=== PATIENT | female | born 1975 | race Caucasian/White ===

== ENCOUNTER 2016-05-20 11:48 | Emergency (ER) | payer MEDICARE ==
[~2016-05-20] VITALS: Ht 176.5 cm; Wt 128.4 kg
[~2016-05-20 11:48] MED LIST: ACET500T68 PO; ALPR1TAB2 PO; AMIT100T PO; ASPI325T4 PO; ATOR40TA59 PO; BARIATRIC ADVANTAGE; BIOT25005 PO; CEPH500C PO; CETI10CA PO; CETI10TA16 PO; CYCL10TA2 PO; DIPH25CA58 PO; DIPH25TA26 PO; DOCU100C5 PO; ERTA1VIA IJ; FERR-26 PO; FURO-69 PO; FURO40TA4 PO; GABA-586 PO; HYDR1TAB20 PO; HYDR25TA PO; LACT1CAP29 PO; LANS15CA66 PO; LEVO75TA5 PO; METH20TA PO; MONT10TA6 PO; NAPR500T3 PO; OLAN1CAP15 PO; OLAN1CAP17 PO; OXYC5TAB PO; OXYM20TA PO; OXYM30TA PO; PHEN-373 PO; POTA20TA4 PO; PROAIR HFA8.5 GM INH; PROC5TAB14 PO; RISP2TAB3 PO; SODI126M NS; SPIR25TA3 PO; SULF1TAB24 PO; TIZA4TAB PO; flexeril; naproxen PO; slow fe PO; stool softener PO
[2016-05-20 12:00] VITALS: BP 142/68
[2016-05-20] MEDS ORDERED: CEPH-264 PO (12:42)
--- NOTE | 2016-05-20 12:43 | PHYS DOC ---
Past Medical History Past Medical History: Arthritis, CHF, Fibromyalgia, GERD, High Cholesterol, Other Additional Past Medical Histor: TACHYCARDIA, E COLI, HYDRONEPHROSIS, cellulitis , INTERSTITIAL CYSTITIS Past Surgical History: Other Additional Past Surgical Histo: LAP BAND 2004, OK EN Y 2013, BREAST REDUCT, R TOE ORTHO Alcohol Use: None Drug Use: None Adult General Chief Complaint Chief Complaint: LOWER EXTREMITY SWELLING HPI HPI 41-year-old female presenting to the emergency department today with bilateral lower extremity swelling or and streaking. Onset 4 days. Location both legs bilaterally. Duration intermittent. No alleviating factors present. She denies shortness of breath or chest pain. Review of systems is negative for nausea vomiting fevers or chills. All other review of systems is negative unless otherwise noted in history of present illness. Review of Systems Review of Systems SEE ABOVE. Allergies Allergies Allergies Coded Allergies Type Severity Reaction Last Updated Verified adhesive tape Allergy Intermediate SKIN SENSITIVITY 05/20/16 Yes erythromycin base Allergy Intermediate 05/20/16 Yes jannie Allergy Intermediate Rash 05/20/16 Yes tetracycline Allergy Intermediate 05/20/16 Yes walnut Allergy Intermediate 05/20/16 Yes Physical Exam Physical Exam Constitutional: Well developed, well nourished, no acute distress, non-toxic appearance. HENT: Normocephalic, atraumatic, bilateral external ears normal, oropharynx moist, no oral exudates, nose normal. [] Eyes: PERRLA, EOMI, conjunctiva normal, no discharge. [] Neck: Normal range of motion, no tenderness, supple, no stridor. Cardiovascular:Heart rate regular rhythm, no murmur [] Lungs & Thorax: Bilateral breath sounds clear to auscultation Abdomen: Bowel sounds normal, soft, no tenderness, no masses, no pulsatile masses. [] Skin: Warm, dry, no erythema, no rash. [] Back: No tenderness, no CVA tenderness. Extremities: Patient has 1+ edema bilaterally with palpable pulses distally. Normal motor and sensory function. 2 second cap refill. They feet are warm to touch bilaterally with mild erythema. No crepitus to palpation. Neurologic: Alert and oriented X 3, normal motor function, normal sensory function, no focal deficits noted. [] Psychologic: Affect normal, judgement normal, mood normal. [] Current Patient Data Vital Signs Vital Signs Date Time Temp Pulse Resp B/P Pulse Ox O2 Delivery O2 Flow Rate FiO2 05/20/16 12:00 98.5 107 18 142/68 92 Room Air 98.5 EKG EKG [] Radiology/Procedures Radiology/Procedures [] Course & Med Decision Making Course & Med Decision Making Pertinent Labs and Imaging studies reviewed. (See chart for details) [] 41-year-old female presenting to the emergency department with bilateral leg swelling pain redness and warmth to touch. Signs and symptoms suggestive of cellulitis. Vital signs showed mild tachycardia that is chronic for this patient. Otherwise afebrile. Pertinent physical exam findings showed mild edema with erythema and swelling of the lower extremities. Upon further review of the electronic medical record the patient's pulmonary artery pressures were noted to be in the 40s. The patient is obese and likely suffering from obstructive sleep apnea. I recommended the patient follow up with her primary care physician for sleep study as well. The patient was subsequently discharged home with oral Keflex for treatment of acute cellulitis. Dragon Disclaimer Dragon Disclaimer This electronic medical record was generated, in whole or in part, using a voice recognition dictation system. Departure Departure Impression: Primary Impression: Cellulitis Disposition: 01 HOME, SELF-CARE Condition: STABLE Referrals: VIKTORIA ALBERT (PCP) Patient Instructions: Cellulitis Scripts Cephalexin (Keflex)500 Mg Capsule1 Cap PO BID #14 CAP Prov:JOVANA SANDOVAL MD 05/20/16 JOVANA SANDOVAL MD May 20, 2016 12:43
== END 2016-05-20 12:50 | disposition home or self-care (01) ==
LOC: ER 11:48
DX: L03.116 Cellulitis of left lower limb (principal); L03.115 Cellulitis of right lower limb; M19.90 Unspecified osteoarthritis, unspecified site; M79.7 Fibromyalgia; K21.9 Gastro-esophageal reflux disease without esophagitis; E78.00 Pure hypercholesterolemia, unspecified; Z98.84 Bariatric surgery status; I50.9 Heart failure, unspecified; Z88.1 Allergy status to other antibiotic agents; Z88.8 Allergy status to other drugs, medicaments and biological substances; Z91.018 Allergy to other foods
CPT/HCPCS: 99283

== ENCOUNTER 2016-08-03 20:19 | Emergency (ER) | payer MEDICARE ==
[~2016-08-03] VITALS: Ht 175.3 cm; Wt 127.5 kg
[~2016-08-03 20:19] MED LIST changes: +CEPH-264 PO
[2016-08-03 20:31] VITALS: BP 126/64
[2016-08-03] MEDS ORDERED: DIPHTH,PERTUSS(ACELL),TET TOX 0.5 ML DISP.SYRIN. VAX IM ONE (20:45)
[2016-08-03] MEDS ORDERED: HYDR-971 PO (20:58)
[2016-08-03] MEDS ORDERED: SULF1TAB24 PO (20:58)
--- NOTE | 2016-08-03 20:58 | PHYS DOC ---
Past Medical History Past Medical History: Arthritis, CHF, Fibromyalgia, GERD, High Cholesterol, Other Additional Past Medical Histor: TACHYCARDIA, E COLI, HYDRONEPHROSIS, cellulitis , INTERSTITIAL CYSTITIS Past Surgical History: Other Additional Past Surgical Histo: LAP BAND 2004, OK EN Y 2013, BREAST REDUCT, R TOE ORTHO Alcohol Use: None Drug Use: None Adult General Chief Complaint Chief Complaint: SKIN RASH/ABSCESS HPI HPI Patient is a 41 year old female with history of mild CHF, high cholesterol, arthritis, who presents today with bilateral lower extremity redness that began this evening. Patient denies any fever. She states she's had similar redness before. She states she would like us to given a new PCP because she does not like her current PCP because she tends to "blow off" her lower extremity swelling. She states she is currently on Lasix. Review of Systems Review of Systems Constitutional: Denies fever or chills [] Eyes: Denies change in visual acuity, redness, or eye pain [] HENT: Denies nasal congestion or sore throat [] Respiratory: Denies cough or shortness of breath [] Cardiovascular: No additional information not addressed in HPI [] GI: Denies abdominal pain, nausea, vomiting, bloody stools or diarrhea [] : Denies dysuria or hematuria [] Musculoskeletal: Denies back pain or joint pain [] Integument: Lower extremity redness. Neurologic: Denies headache, focal weakness or sensory changes [] Endocrine: Denies polyuria or polydipsia [] Current Medications Current Medications Current Medications Medications (Trade) Dose Ordered Sig/Sunil Start Time Stop Time Status Last Admin Dose Admin Diphtheria/ Tetanus/Acell Pertussis (Boostrix) 0.5 ml ONCE ONCE 08/03/16 20:45 08/03/16 20:46 DC Allergies Allergies Allergies Coded Allergies Type Severity Reaction Last Updated Verified adhesive tape Allergy Intermediate SKIN SENSITIVITY 05/20/16 Yes erythromycin base Allergy Intermediate 05/20/16 Yes jannie Allergy Intermediate Rash 05/20/16 Yes tetracycline Allergy Intermediate 05/20/16 Yes walnut Allergy Intermediate 05/20/16 Yes Physical Exam Physical Exam Constitutional: Well developed, well nourished, no acute distress, non-toxic appearance. [] HENT: Normocephalic, atraumatic, bilateral external ears normal, oropharynx moist, no oral exudates, nose normal. [] Eyes: PERRLA, EOMI, conjunctiva normal, no discharge. [] Neck: Normal range of motion, no tenderness, supple, no stridor. [] Cardiovascular:Heart rate regular rhythm, no murmur [] Lungs & Thorax: Bilateral breath sounds clear to auscultation [] Abdomen: Bowel sounds normal, soft, no tenderness, no masses, no pulsatile masses. [] Skin: Bilateral lower extremities with scattered areas of cellulitis mild in nature. Warmth over bilateral lower extremities. Negative Homans sign bilaterally. +2 bilateral lower extremity pedal edema. Patient states this is chronic. Back: No tenderness, no CVA tenderness. [] Extremities: No tenderness, no cyanosis, no clubbing, ROM intact, no edema. [] Neurologic: Alert and oriented X 3, normal motor function, normal sensory function, no focal deficits noted. [] Psychologic: Affect normal, judgement normal, mood normal. [] Current Patient Data Vital Signs Vital Signs Date Time Temp Pulse Resp B/P (MAP) Pulse Ox O2 Delivery O2 Flow Rate FiO2 08/03/16 20:31 98.3 119 19 93 Room Air 98.3 EKG EKG [] Radiology/Procedures Radiology/Procedures [] Course & Med Decision Making Course & Med Decision Making Pertinent Labs and Imaging studies reviewed. (See chart for details) Patient has cellulitis to bilateral lower extremities. She'll be given tetanus vaccine in the ED and discharged Bactrim. She was instructed to keep her lower extremities clean. We provided her a PCP for follow-up as well as transportation maintenance supervisor. She was instructed to elevate the extremities and continue taking her home medications especially Lasix. Dragon Disclaimer Dragon Disclaimer This electronic medical record was generated, in whole or in part, using a voice recognition dictation system. Departure Departure Impression: Primary Impression: Cellulitis of both lower extremities Disposition: 01 HOME, SELF-CARE Condition: STABLE Referrals: VIKTORIA ALBERT (PCP) Follow-up with a primary care doctor from the list provided in one week Patient Instructions: Cellulitis, [id number] Additional Instructions: You were seen for bilateral lower extremity cellulitis. Take the prescribed antibiotics until completed. Follow-up with a primary care doctor from the list provided. The list also has a transportation maintenance supervisor. You can pick one and follow-up with them. Scripts Hydrocodone/Apap 5-325 (NORCO 5-325 TABLET) 1 Each Tablet 1-2 TAB PO Q4-6HRS, #10 TAB Prov: NIKITA CHAVEZ APRN 08/03/16 Sulfamethoxazole/Trimethoprim (BACTRIM DS TABLET) 1 Each Tablet 1 TAB PO BID, #20 TAB Prov: NIKITA CHAVEZ APRN 08/03/16 NIKITA CHAVEZ APRN Aug 03, 2016 20:58
== END 2016-08-03 21:15 | disposition home or self-care (01) ==
LOC: ER 20:19
DX: L03.115 Cellulitis of right lower limb (principal); L03.116 Cellulitis of left lower limb; I50.9 Heart failure, unspecified; K21.9 Gastro-esophageal reflux disease without esophagitis; M19.90 Unspecified osteoarthritis, unspecified site; M79.7 Fibromyalgia; E78.00 Pure hypercholesterolemia, unspecified; Z88.8 Allergy status to other drugs, medicaments and biological substances; Z91.018 Allergy to other foods; Z88.1 Allergy status to other antibiotic agents; Z98.84 Bariatric surgery status
CPT/HCPCS: 90471; 90715; 99283-25

== ENCOUNTER → 2016-10-09 | Outpatient (CLI) | payer MEDICARE ==
[~2016-10-09] MED LIST changes: -ASPI325T4 PO; +ASPI325T8 PO; -BIOT25005 PO; +BIOT25006 PO; +DOCU100C28 PO; -DOCU100C5 PO; +HYDR-971 PO; -LANS15CA66 PO; +LANS15CA78 PO; +OXYM30TA13 PO; -PHEN-373 PO; +PHEN-444 PO
--- NOTE | 2016-10-09 14:26 | KCIC ---
CERVICAL SPINE 5V Clinical Indication: Neck pain. Comparison: None. Findings: AP, open-mouth, bilateral oblique, lateral, and swimmer's views. Visualized lung apices are clear. Lateral masses are symmetric. The odontoid is intact. There is mild to moderate bony neural foraminal narrowing on the right at C3/C4. Other neural foramina are patent. The swimmer's view is limited due to bony overlap with the humerus. The alignment is maintained. No significant disc space narrowing. Mild degenerative endplate spurring in the cervical spine most apparent at C4/C5. The prevertebral soft tissues are normal. IMPRESSION: 1. No acute findings. The alignment is maintained. 2. Bony neural foraminal narrowing on the right at C3/C4. Electronically signed by: Chris Vital MD (10/09/2016 2:23 PM) [id number]
--- NOTE | 2016-10-09 14:32 | KCIC ---
EXAM: Lumbar spine, 5 views; thoracic spine, 2 views. HISTORY: Pain. COMPARISON: None. FINDINGS: Lumbar spine: Frontal, lateral, bilateral oblique and coned sacral views of the lumbar spine are obtained. There is endplate remodeling at multiple levels. There is no listhesis. The vertebral bodies are normal in height and the disc spaces are preserved. Thoracic spine: Frontal and lateral views of the thoracic spine are obtained. There is mild thoracic dextroscoliosis. There is minimal anterior wedging of T12, likely degenerative or developmental. No acute or subacute fracture is seen. There is endplate remodeling at multiple levels. IMPRESSION: 1. Mild thoracolumbar scoliosis. 2. Mild endplate remodeling at multiple levels. Electronically signed by: Deborah Batres MD (10/09/2016 2:29 PM) [id number]
== END | disposition home or self-care (01) ==
LOC: KCIC 13:27
PROVIDERS: ATTEND Neuromusculoskeletal Medicine & OMM
DX: M41.85 Other forms of scoliosis, thoracolumbar region (principal); M54.2 Cervicalgia
CPT/HCPCS: 72050; 72072; 72110

== ENCOUNTER 2016-12-15 18:04 | Emergency (ER) | payer MEDICARE ==
[~2016-12-15] VITALS: Ht 177.8 cm; Wt 129.7 kg
[~2016-12-15 18:04] MED LIST changes: +BUDE8.6S6 NS; +BUSP10TA PO; +FLUT1DIS5 IH; +LEVO5TAB2 PO; +MELA3TAB2 PO; +MULT1TAB52 PO; -NAPR500T3 PO; +NAPR500T4 PO; +OXYC-328 PO; -OXYC5TAB PO; +OXYC5TAB95 PO; +POTA20TA82 PO; +PRED-220 PO; +PREG150C PO
--- NOTE | 2016-12-15 18:55 | PHYS DOC ---
Past Medical History Past Medical History: Arthritis, Asthma, CHF, Fibromyalgia, GERD, High Cholesterol, Migraines, Other Additional Past Medical Histor: TACHYCARDIA, E COLI, HYDRONEPHROSIS, cellulitis , INTERSTITIAL CYSTITIS Past Medical History Obstructive sleep apnea, asthma, morbid obesity Past Surgical History: Cholecystectomy, Other Additional Past Surgical Histo: LAP BAND 2004, OK EN Y 2013, BREAST REDUCT, R TOE ORTHO Additional Information: non smoker Alcohol Use: None Drug Use: None Adult General Chief Complaint Chief Complaint: LOWER EXTREMITY SWELLING HPI HPI Patient is a 41 year old female who presents with "I have cellulitis again." Patient states she's had chronic cellulitis in the past; her last episode was within this past year. She states she noted increased swelling of both of her legs, some redness and warmth; right side however greater than left for the last 3 days. No fevers at home. She states "I've been keeping them up and sleeping in the recliner". She denies any change in her baseline shortness of breath. She does have chronic obstructive sleep apnea, asthma, restrictive lung disease secondary to morbid obesity. She states she's had a sore throat for couple days as well. No drooling or difficulty swallowing. Denies any recent travel, no hormonal replacement therapy, nonsmoker. Her last admission here was October 28, 2016 where she was admitted for respiratory failure. CT chest was not the time is negative for pulmonary emboli. Review of Systems Review of Systems Constitutional: Denies fever or chills Eyes: Denies change in visual acuity, redness, or eye pain HENT: POS nasal congestion; POS sore throat Respiratory: Slight non productive cough; no change in baseline shortness of breath Cardiovascular: No chest pain GI: Denies abdominal pain, nausea, vomiting, bloody stools or diarrhea : Denies dysuria or hematuria Musculoskeletal: Denies back pain or joint pain; bilateral lower leg pain (Rt> lft) and swelling Integument: Denies rash or skin lesions; redness to lower legs. Neurologic: Denies headache, focal weakness or sensory changes Current Medications Current Medications Current Medications Medications (Trade) Dose Ordered Sig/Sunil Start Time Stop Time Status Last Admin Dose Admin Ceftriaxone Sodium (Rocephin Im) 1 gm 1X ONCE 12/15/16 21:00 12/15/16 21:01 DC 12/15/16 21:00 1 GM Allergies Allergies Allergies Coded Allergies Type Severity Reaction Last Updated Verified adhesive tape Allergy Intermediate SKIN SENSITIVITY 05/20/16 Yes aspartame Allergy Intermediate 10/31/16 Yes erythromycin base Allergy Intermediate 05/20/16 Yes jannie Allergy Intermediate Rash 05/20/16 Yes tetracycline Allergy Intermediate 05/20/16 Yes walnut Allergy Intermediate 05/20/16 Yes I S O L A T I O N *CONTACT* Allergy Unknown 10/29/16 Yes Physical Exam Physical Exam Constitutional: Well developed, well nourished, obese female in no acute distress, non-toxic appearance. HENT: Normocephalic, atraumatic, bilateral external ears normal, oropharynx moist, no oral exudates, no drooling; no palatal lesions. nose normal. Eyes: PERRLA, EOMI, conjunctiva normal, no discharge. Neck: Normal range of motion, no tenderness, supple, no stridor. Cardiovascular:Heart rate regular rhythm, no murmur Lungs & Thorax: Bilateral breath sounds clear to auscultation Abdomen: Bowel sounds normal, soft, no tenderness, no masses, no pulsatile masses. Skin: Warm, dry, no erythema, no rash. Back: No tenderness, no CVA tenderness. Extremities: Positive tenderness to bilateral lower legs, no cyanosis, no clubbing, ROM intact, 3+ edema bilaterally. Faint redness on right lateral lower leg; no wounds. Minimal redness to left lower leg. Neurologic: Alert and oriented X 3, normal motor function, normal sensory function, no focal deficits noted. Current Patient Data Vital Signs Vital Signs Date Time Temp Pulse Resp B/P (MAP) Pulse Ox O2 Delivery O2 Flow Rate FiO2 12/15/16 21:09 92 20 133/74 (93) 93 Nasal Cannula 2.0 12/15/16 18:30 98.6 98.6 Radiology/Procedures Radiology/Procedures Prelim report negative for DVT. [facility] [address] [place] [address] IMAGING REPORT Signed PATIENT: KOFI DRISCOLL ACCOUNT: [id number] : 1975 LOCATION: ER AGE: 41 SEX: F EXAM STATUS: REG ER ORD. PHYSICIAN: RADU DSOUZA MD REASON: bilat LE swelling; pain; redness; R>L PROCEDURE: VENOUS LOWER EXT BILATERAL Bilateral Lower Extremity Venous Doppler Ultrasound History: Swelling and redness bilaterally Comparison: None Procedure: Color flow, duplex, spectral analysis and 2D images are obtained with and without compression in the area of the common femoral vein, superficial femoral vein - femoral vein junction, main femoral vein (superficial femoral vein) and popliteal vein. Veins of the proximal calf are also imaged. Findings: There is normal duplex flow, color flow and compressibility of all visualized vein segments. No evidence of deep venous thrombus is present. There is limited visualization of the PTV's and peroneal veins due to lower extremity edema and large body habitus. Impression: No evidence of DVT. Electronically signed by: Debra Hurd III, MD (12/15/2016 8:44 PM) [facility] DICTATED and SIGNED BY: DEBRA HURD III, MD DATE: 12/15/162042 CC: RADU DSOUZA MD; VIKTORIA ALBERT ~ Course & Med Decision Making Course & Med Decision Making Reviewed prior records. Patient high risk for DVT due to obesity. She has been sleeping in a recliner; however I pointed out to patient that it leaves her lower extremities in a dependent position. Will US bilateral lower extremities. Patient is non toxic; if US negative can treat outpatient. PERC RULE Criteria: Age < than 50 years-YES Heart rate < 100-YES Oxygen saturation > 95%-YES No hemoptysis-YES No estrogen use-YES No prior DVT or PE-YES No unilateral leg swelling-NO; right larger than left No surgery or trauma requiring hospitalization within the prior 4 weeks-YES At 2030 PM: Preliminary ultrasound report is negative for DVT. Will dose Rocephin IM and place on bactrim to cover staph. I have spoken with the patient and/or caregivers. I have explained the patient' s condition, diagnosis and treatment plan based on the information available to me at this time. I have answered the patient's and/or caregiver's questions and addressed any concerns. The patient and/or caregivers have as good an understanding of the patient's diagnosis, condition and treatment plan as can be expected at this point. The patient's condition is stable and appropriate for discharge from the emergency department. The patient will pursue further outpatient evaluation with the primary care physician or other designated or consulting physician as outlined in the discharge instructions. The patient and/or caregivers are agreeable to this plan of care and follow-up instructions have been explained in detail. The patient and/or caregivers have received these instructions in written format and have expressed an understanding of the discharge instructions. The patient and/or caregivers are aware that any significant change in condition or worsening of symptoms should prompt an immediate return to this or the closest emergency department or a call to 911. Dragon Disclaimer Dragon Disclaimer This electronic medical record was generated, in whole or in part, using a voice recognition dictation system. Departure Departure Impression: Primary Impression: Cellulitis Additional Impression: Pain and swelling of lower extremity Disposition: HOME, SELF-CARE Condition: STABLE Referrals: VIKTORIA ALBERT (PCP) Patient Instructions: Cellulitis, Peripheral Edema Additional Instructions: Keep the legs elevated higher than your heart. You must be laying down completely and have your legs elevated on pillows. Scripts Sulfamethoxazole/Trimethoprim (BACTRIM DS TABLET) 1 Each Tablet 1 TAB PO BID, #20 TAB Prov: RADU DSOUZA MD 12/15/16 Problem Qualifiers Primary Impression: Cellulitis Site of cellulitis: extremity Site of cellulitis of extremity: lower extremity Laterality: right Qualified Codes: L03.115 - Cellulitis of right lower limb Additional Impression: Pain and swelling of lower extremity Laterality: unspecified laterality Qualified Codes: M79.606 - Pain in leg, unspecified; M79.89 - Other specified soft tissue disorders RADU DSOUZA MD Dec 15, 2016 18:55
[2016-12-15] MEDS ORDERED: SULF1TAB24 PO (20:38)
--- NOTE | 2016-12-15 20:47 | RAD ---
Bilateral Lower Extremity Venous Doppler Ultrasound History: Swelling and redness bilaterally Comparison: None Procedure: Color flow, duplex, spectral analysis and 2D images are obtained with and without compression in the area of the common femoral vein, superficial femoral vein - femoral vein junction, main femoral vein (superficial femoral vein) and popliteal vein. Veins of the proximal calf are also imaged. Findings: There is normal duplex flow, color flow and compressibility of all visualized vein segments. No evidence of deep venous thrombus is present. There is limited visualization of the PTV's and peroneal veins due to lower extremity edema and large body habitus. Impression: No evidence of DVT. Electronically signed by: Pineda Kaiser III, MD (12/15/2016 8:44 PM) [id number]
[2016-12-15] MEDS ORDERED: cefTRIAXone IM 1 GM VIAL IM ONE (21:00)
[2016-12-15 21:09] VITALS: BP 133/74
== END 2016-12-15 21:13 | disposition home or self-care (01) ==
LOC: ER 18:04
DX: L03.115 Cellulitis of right lower limb (principal); M79.89 Other specified soft tissue disorders; J02.9 Acute pharyngitis, unspecified; E78.00 Pure hypercholesterolemia, unspecified; J45.909 Unspecified asthma, uncomplicated; K21.9 Gastro-esophageal reflux disease without esophagitis; M79.7 Fibromyalgia; G43.909 Migraine, unspecified, not intractable, without status migrainosus; M19.90 Unspecified osteoarthritis, unspecified site; I50.9 Heart failure, unspecified; G47.33 Obstructive sleep apnea (adult) (pediatric); Z98.84 Bariatric surgery status; Z90.49 Acquired absence of other specified parts of digestive tract; Z88.1 Allergy status to other antibiotic agents; Z88.8 Allergy status to other drugs, medicaments and biological substances; Z91.041 Radiographic dye allergy status; Z91.018 Allergy to other foods
CPT/HCPCS: 93970; 96372; 99284; J0696

== ENCOUNTER 2017-03-23 21:34 | Inpatient (IN) | payer MEDICARE ==
[2017-03-23] MEDS: IV NORMAL SALINE 1000ML BAG 1,000 ML IV (22:23)
[2017-03-23 22:31] LABS: CLARITY,URINE CLOUDY; GLUCOSE,URINE NEGATIVE (NEG); PROTEIN,URINE NEGATIVE (NEG-TRACE)
[2017-03-23 22:40] LABS: AMPHETAMINE/METHAMPHETAMINE NEG (NEG); BARBITURATES NEG (NEG); BENZODIAZEPINES NEG (NEG); CANNABINOIDS NEG (NEG); COCAINE NEG (NEG); ETHANOL, URINE NEG (NEG); METHADONE NEG (NEG); OPIATES POS (NEG); PHENCYCLIDINE NEG (NEG)
[2017-03-23 22:43] LABS: COLOR,URINE ORANGE
[2017-03-23 22:45] LABS: BACTERIA,URINE MANY /HPF (0-FEW); HYALINE CASTS, URINE OCCASIONAL /HPF; RBC,URINE 0 /HPF (0-2); SQUAMOUS EPITHELIAL CELL,UR FEW /LPF; WBC,URINE >40 /HPF (0-4)
[2017-03-23 23:07] LABS: BASO # 0.1 x10^3/uL (0.0-0.2); BASO % 1 % (0-3); EOS # 0.6 x10^3/uL (0.0-0.7); EOS % 3 % (0-3); HEMOGLOBIN 9.9 g/dL (12.0-15.5); LYMPH # 1.6 x10^3/uL (1.0-4.8); LYMPH % 8 % (24-48); MEAN CORPUSCULAR HEMOGLOBIN 30 pg (25-35); MEAN CORPUSCULAR HGB CONC 32 g/dL (31-37); MEAN CORPUSCULAR VOLUME 93 fL (79-100); MONO # 2.2 x10^3/uL (0.0-1.1); MONO % 11 % (0-9); NEUT # 15.7 x10^3uL (1.8-7.7); NEUT % 78 % (31-73); PLATELET COUNT 198 x10^3/uL (140-400); RED BLOOD COUNT 3.32 x10^6/uL (3.50-5.40); RED CELL DISTRIBUTION WIDTH 14.8 % (11.5-14.5); WHITE BLOOD COUNT 20.2 x10^3/uL (4.0-11.0)
[2017-03-23 23:08] LABS: ADD MAN DIFF? YES
[2017-03-23 23:20] LABS: ANION GAP 8 (6-14); BLOOD UREA NITROGEN 29 mg/dL (7-20); CALCIUM 8.2 mg/dL (8.5-10.1); CARBON DIOXIDE 32 mmol/L (21-32); CHLORIDE 100 mmol/L (98-107); CREATININE 1.7 mg/dL (0.6-1.0); GFR 32.6; GLUCOSE 118 mg/dL (70-99); POTASSIUM 4.2 mmol/L (3.5-5.1); SODIUM 140 mmol/L (136-145)
[2017-03-23 23:42] LABS: % BANDS 5 % (0-9); % BASOS 1 % (0-3); % EOS 3 % (0-5); % LYMPHS 6 % (24-48); % MONOS 2 % (0-10); % SEGS 83 % (35-66); PLT ESTIMATE ADEQUATE (ADEQUATE)
[2017-03-23 23:43] LABS: TROPONINI < 0.017 ng/mL (0.000-0.055)
[2017-03-24] MEDS: IV NORMAL SALINE 1000ML BAG 1,000 ML IV ×4 (00:01→20:08)
[2017-03-24 00:13] LABS: NEG OBC UR NEG; POS OBC UR POS; U PREG PATIENT NEGATIVE (NEG)
[2017-03-24] MEDS ORDERED: ONDANSETRON PF 4 MG/2 ML VIAL. IV (00:30)
[2017-03-24] MEDS: MORPHINE SULFATE 2 MG/ML DISP.SYRIN. IV ×5 (03:20→22:09)
[2017-03-24 07:26] LABS: TROPONINI < 0.017 ng/mL (0.000-0.055)
[2017-03-24] MEDS ORDERED: ALBUTEROL SULFATE 2.5 MG/3 ML NEBU. NEB (08:30)
[2017-03-24] MEDS: NAPROXEN 500 MG TABLET PO ×2 (08:52→20:07)
[2017-03-24] MEDS: FERROUS SULFATE 325 MG TABLET. PO (08:52)
[2017-03-24] MEDS: FLUoxetine HCL 20 MG CAPSULE PO (08:52)
[2017-03-24] MEDS: predniSONE 20 MG TABLET PO (08:53)
[2017-03-24] MEDS: OLANZapine 5 MG TABLET PO (08:53)
[2017-03-24] MEDS: MULTIVITAMIN with MINERAL TABLET. PO (08:53)
[2017-03-24] MEDS: FUROSEMIDE 40 MG TABLET. PO ×2 (08:53→15:09)
[2017-03-24] MEDS: LEVOTHYROXINE 75 MCG TABLET PO (08:53)
[2017-03-24] MEDS: ASPIRIN 325 MG TABLET PO (08:53)
[2017-03-24] MEDS: PROCHLORPERAZINE 5 MG TABLET. PO ×3 (08:54→20:07)
[2017-03-24] MEDS: PHENAZOPYRIDINE 200 MG TABLET. PO ×3 (08:54→17:09)
[2017-03-24] MEDS: POTASSIUM CHLORIDE 20 MEQ TABLET.ER. PO (08:54)
[2017-03-24] MEDS: PANTOPRAZOLE 40 MG TABLET.DR. PO (08:54)
[2017-03-24] MEDS: FLUTICASONE 50MCG/NASAL SPRAY 16GM BOTTLE. NS (08:59)
[2017-03-24] MEDS: ONDANSETRON PF 4 MG/2 ML VIAL. IV (09:59)
[2017-03-24] MEDS: METOPROLOL TARTRATE 5 MG/5 ML VIAL. IVP (10:29)
[2017-03-24] MEDS: ACETAMINOPHEN 325 MG TABLET. PO (10:29)
[2017-03-24] MEDS: PREGABALIN 75 MG CAPSULE PO ×2 (11:23→20:07)
[2017-03-24 12:49] LABS: INFLUENZA A PATIENT NEGATIVE (NEGATIVE); INFLUENZA B PATIENT NEGATIVE (NEGATIVE); OBC FLU VALID
[2017-03-24 12:50] LABS: TROPONINI < 0.017 ng/mL (0.000-0.055)
[2017-03-24] MEDS: CARVEDILOL 3.125 MG TABLET. PO (17:09)
[2017-03-24] MEDS: ATORVASTATIN CALCIUM 40 MG TABLET. PO (20:07)
[2017-03-24] MEDS: MONTELUKAST SODIUM 10 MG TABLET. PO (20:07)
[2017-03-24] MEDS: cefTRIAXone IV Push 1 GM VIAL. IVP (20:07)
[2017-03-24] MEDS: LACTOBACILLUS RHAMNOSUS GG 1 CAPSULE. PO (20:07)
[2017-03-24] MEDS: diphenhydrAMINE HCL 25 MG CAPSULE PO (20:07)
[2017-03-24] MEDS ORDERED: FLUOXETINE HCL PO (21:00)
[2017-03-24] MEDS ORDERED: NON FORMULARY ITEM (Melatonin 10 MG) PO (21:00)
[2017-03-24] MEDS ORDERED: OLANZAPINE PO (21:00)
[2017-03-25] MEDS: MORPHINE SULFATE 2 MG/ML DISP.SYRIN. IV ×5 (03:08→20:30)
[2017-03-25 03:31] LABS: ADD MAN DIFF? NO
[2017-03-25 03:39] LABS: BASO % 0 % (0-3); EOS # 0.2 x10^3/uL (0.0-0.7); EOS % 1 % (0-3); HEMATOCRIT 30.9 % (36.0-47.0); HEMOGLOBIN 9.4 g/dL (12.0-15.5); LYMPH # 1.9 x10^3/uL (1.0-4.8); LYMPH % 9 % (24-48); MEAN CORPUSCULAR HEMOGLOBIN 28 pg (25-35); MEAN CORPUSCULAR HGB CONC 31 g/dL (31-37); MEAN CORPUSCULAR VOLUME 93 fL (79-100); MONO # 2.3 x10^3/uL (0.0-1.1); MONO % 11 % (0-9); NEUT # 16.8 x10^3uL (1.8-7.7); NEUT % 80 % (31-73); PLATELET COUNT 191 x10^3/uL (140-400); RED BLOOD COUNT 3.34 x10^6/uL (3.50-5.40); RED CELL DISTRIBUTION WIDTH 15.6 % (11.5-14.5); WHITE BLOOD COUNT 21.1 x10^3/uL (4.0-11.0)
[2017-03-25] MEDS: IV NORMAL SALINE 1000ML BAG 1,000 ML IV ×3 (05:02→20:28)
[2017-03-25 05:13] LABS: ANION GAP 10 (6-14); BLOOD UREA NITROGEN 26 mg/dL (7-20); CALCIUM 8.4 mg/dL (8.5-10.1); CARBON DIOXIDE 31 mmol/L (21-32); CHLORIDE 105 mmol/L (98-107); CREATININE 1.5 mg/dL (0.6-1.0); GFR 37.7; GLUCOSE 103 mg/dL (70-99); POTASSIUM 4.1 mmol/L (3.5-5.1); SODIUM 146 mmol/L (136-145)
[2017-03-25] MEDS: PANTOPRAZOLE 40 MG TABLET.DR. PO (07:46)
[2017-03-25] MEDS: FERROUS SULFATE 325 MG TABLET. PO (08:37)
[2017-03-25] MEDS: FUROSEMIDE 40 MG TABLET. PO ×2 (08:37→14:16)
[2017-03-25] MEDS: FLUoxetine HCL 20 MG CAPSULE PO (08:38)
[2017-03-25] MEDS: PROCHLORPERAZINE 5 MG TABLET. PO ×3 (08:38→20:31)
[2017-03-25] MEDS: OLANZapine 5 MG TABLET PO (08:38)
[2017-03-25] MEDS: PHENAZOPYRIDINE 200 MG TABLET. PO ×3 (08:39→17:24)
[2017-03-25] MEDS: CARVEDILOL 3.125 MG TABLET. PO ×2 (08:39→16:43)
[2017-03-25] MEDS: LACTOBACILLUS RHAMNOSUS GG 1 CAPSULE. PO ×2 (08:39→20:31)
[2017-03-25] MEDS: ASPIRIN 325 MG TABLET PO (08:39)
[2017-03-25] MEDS: NAPROXEN 500 MG TABLET PO ×2 (08:40→20:31)
[2017-03-25] MEDS: PREGABALIN 75 MG CAPSULE PO ×2 (08:40→20:30)
[2017-03-25] MEDS: predniSONE 20 MG TABLET PO (08:40)
[2017-03-25] MEDS: MULTIVITAMIN with MINERAL TABLET. PO (08:41)
[2017-03-25] MEDS: POTASSIUM CHLORIDE 20 MEQ TABLET.ER. PO (08:41)
[2017-03-25] MEDS: FLUTICASONE 50MCG/NASAL SPRAY 16GM BOTTLE. NS (08:43)
[2017-03-25] MEDS: NYSTATIN 100,000 UNIT/GM TOPICAL CREAM 15GM TUBE. TP ×2 (12:26→20:29)
[2017-03-25] MEDS: FLUCONAZOLE 100 MG TABLET. PO (12:27)
[2017-03-25] MEDS: NEOMY/BACITR/POLYMYXIN OINT PACKET. TP (12:55)
[2017-03-25] MEDS: MEROPENEM IV Push 1 GM VIAL. IVP ×2 (15:20→21:36)
[2017-03-25] MEDS: ACETAMINOPHEN 325 MG TABLET. PO (15:26)
[2017-03-25] MEDS: BUPRENORPHINE 300 MCG PO ×2 (15:58→23:11)
[2017-03-25] MEDS: MONTELUKAST SODIUM 10 MG TABLET. PO (20:31)
[2017-03-25] MEDS: ATORVASTATIN CALCIUM 40 MG TABLET. PO (20:31)
[2017-03-25] MEDS: diphenhydrAMINE HCL 25 MG CAPSULE PO (20:31)
[2017-03-25] MEDS ORDERED: MEROPENEM 1 GM in IV NORMAL SALINE 100ML 100 ML IV (22:00)
[2017-03-26] MEDS: MEROPENEM IV Push 1 GM VIAL. IVP ×2 (05:21→14:05)
[2017-03-26] MEDS: MORPHINE SULFATE 2 MG/ML DISP.SYRIN. IV ×3 (05:22→15:10)
[2017-03-26] MEDS: IV NORMAL SALINE 1000ML BAG 1,000 ML IV (06:20)
[2017-03-26 06:30] LABS: ADD MAN DIFF? NO
[2017-03-26 06:33] LABS: BASO % 0 % (0-3); EOS # 0.4 x10^3/uL (0.0-0.7); EOS % 3 % (0-3); HEMATOCRIT 28.1 % (36.0-47.0); HEMOGLOBIN 8.5 g/dL (12.0-15.5); LYMPH # 1.8 x10^3/uL (1.0-4.8); LYMPH % 14 % (24-48); MEAN CORPUSCULAR HEMOGLOBIN 28 pg (25-35); MEAN CORPUSCULAR HGB CONC 30 g/dL (31-37); MEAN CORPUSCULAR VOLUME 93 fL (79-100); MONO # 1.2 x10^3/uL (0.0-1.1); MONO % 9 % (0-9); NEUT # 9.3 x10^3uL (1.8-7.7); NEUT % 73 % (31-73); PLATELET COUNT 158 x10^3/uL (140-400); RED BLOOD COUNT 3.01 x10^6/uL (3.50-5.40); WHITE BLOOD COUNT 12.8 x10^3/uL (4.0-11.0)
[2017-03-26] MEDS: PHENAZOPYRIDINE 200 MG TABLET. PO ×3 (08:10→16:30)
[2017-03-26] MEDS: PANTOPRAZOLE 40 MG TABLET.DR. PO (08:10)
[2017-03-26] MEDS: POTASSIUM CHLORIDE 20 MEQ TABLET.ER. PO (08:10)
[2017-03-26] MEDS: ASPIRIN 325 MG TABLET PO (08:10)
[2017-03-26] MEDS: BUPRENORPHINE 300 MCG PO (08:10)
[2017-03-26] MEDS: FERROUS SULFATE 325 MG TABLET. PO (08:38)
[2017-03-26] MEDS: PROCHLORPERAZINE 5 MG TABLET. PO ×2 (08:38→14:04)
[2017-03-26] MEDS: FLUoxetine HCL 20 MG CAPSULE PO (08:39)
[2017-03-26] MEDS: OLANZapine 5 MG TABLET PO (08:39)
[2017-03-26] MEDS: LACTOBACILLUS RHAMNOSUS GG 1 CAPSULE. PO (08:39)
[2017-03-26] MEDS: PREGABALIN 75 MG CAPSULE PO (08:40)
[2017-03-26] MEDS: NAPROXEN 500 MG TABLET PO (08:40)
[2017-03-26] MEDS: predniSONE 20 MG TABLET PO (08:40)
[2017-03-26] MEDS: FUROSEMIDE 40 MG TABLET. PO ×2 (08:40→15:10)
[2017-03-26] MEDS: FLUCONAZOLE 100 MG TABLET. PO (08:41)
[2017-03-26] MEDS: MULTIVITAMIN with MINERAL TABLET. PO (08:41)
[2017-03-26] MEDS: CARVEDILOL 3.125 MG TABLET. PO ×2 (08:41→16:30)
[2017-03-26] MEDS: NYSTATIN 100,000 UNIT/GM TOPICAL CREAM 15GM TUBE. TP (08:42)
[2017-03-26] MEDS: FLUTICASONE 50MCG/NASAL SPRAY 16GM BOTTLE. NS (08:42)
[2017-03-26] MEDS: ACETAMINOPHEN 325 MG TABLET. PO (14:05)
[2017-03-26] MEDS: busPIRone 10 MG TABLET. PO (16:00)
[2017-03-26] MEDS: FOSFOMYCIN TROMETHAMINE 3 GM PACKET PO (16:29)
[2017-03-26] MEDS ORDERED: AMITRIPTYLINE HCL 50 MG TABLET PO (21:00)
== END 2017-03-26 17:46 | disposition home or self-care (01) | DRG 871 ==
LOC: 5 NORTH 03-24 01:36 → ER 21:34
DX: A41.9 Sepsis, unspecified organism (principal); J96.01 Acute respiratory failure with hypoxia; N17.0 Acute kidney failure with tubular necrosis; G92 Toxic encephalopathy; F11.20 Opioid dependence, uncomplicated; E66.2 Morbid (severe) obesity with alveolar hypoventilation; N30.10 Interstitial cystitis (chronic) without hematuria; Z68.41 Body mass index [BMI] 40.0-44.9, adult; T40.2X1A Poisoning by other opioids, accidental (unintentional), initial encounter; B37.2 Candidiasis of skin and nail; D64.9 Anemia, unspecified; I50.9 Heart failure, unspecified; G43.909 Migraine, unspecified, not intractable, without status migrainosus; G47.33 Obstructive sleep apnea (adult) (pediatric); G89.4 Chronic pain syndrome; F32.9 Major depressive disorder, single episode, unspecified; F41.9 Anxiety disorder, unspecified; F98.8 Other specified behavioral and emotional disorders with onset usually occurring in childhood and adolescence; M19.90 Unspecified osteoarthritis, unspecified site; J45.909 Unspecified asthma, uncomplicated; T40.601A Poisoning by unspecified narcotics, accidental (unintentional), initial encounter; E03.9 Hypothyroidism, unspecified; K21.9 Gastro-esophageal reflux disease without esophagitis; K58.9 Irritable bowel syndrome, unspecified; M79.7 Fibromyalgia; Z16.12 Extended spectrum beta lactamase (ESBL) resistance; B96.20 Unspecified Escherichia coli [E. coli] as the cause of diseases classified elsewhere; H16.429 Pannus (corneal), unspecified eye; B96.89 Other specified bacterial agents as the cause of diseases classified elsewhere; E78.00 Pure hypercholesterolemia, unspecified; E78.5 Hyperlipidemia, unspecified; Y92.89 Other specified places as the place of occurrence of the external cause; Z87.01 Personal history of pneumonia (recurrent); Z79.899 Other long term (current) drug therapy; Z82.49 Family history of ischemic heart disease and other diseases of the circulatory system; Z82.3 Family history of stroke; Z83.3 Family history of diabetes mellitus; Z86.73 Personal history of transient ischemic attack (TIA), and cerebral infarction without residual deficits; Z87.440 Personal history of urinary (tract) infections; Z90.710 Acquired absence of both cervix and uterus; Z90.49 Acquired absence of other specified parts of digestive tract; Z98.84 Bariatric surgery status; Z88.1 Allergy status to other antibiotic agents; Z88.8 Allergy status to other drugs, medicaments and biological substances; Z91.018 Allergy to other foods; Z91.048 Other nonmedicinal substance allergy status
CPT/HCPCS: 36415; 70450; 71045; 80048; 80307; 81001; 81025; 84484; 85007; 85025; 87086; 87186; 87804; 87804-59; 93005; 96361; 96365; 99285; 99285-25; J0690; J0696; J2185; J2270; J2405; J3490; J7030; J7512; Q0163; Q0164

== ENCOUNTER 2017-05-08 11:25 | Inpatient (IN) | payer MEDICARE ==
[2017-05-08 12:29] LABS: URINE HCG POC HCG NEGATIVE (Negative)
[2017-05-08 12:58] LABS: BILIRUBIN,URINE SMALL (NEG); CLARITY,URINE CLOUDY; COLOR,URINE ORANGE; GLUCOSE,URINE NEGATIVE (NEG); NITRITE,URINE POSITIVE (NEG); PH,URINE 5.5; PROTEIN,URINE NEGATIVE (NEG-TRACE)
[2017-05-08 13:08] LABS: BACTERIA,URINE MANY /HPF (0-FEW); RBC,URINE 0 /HPF (0-2); WBC,URINE TNTC /HPF (0-4)
[2017-05-08 14:00] LABS: ADD MAN DIFF? NO
[2017-05-08] MEDS: IV NORMAL SALINE 1000ML BAG 1,000 ML IV ×2 (14:05→23:28)
[2017-05-08] MEDS: MEROPENEM 1 GM in IV NORMAL SALINE 100ML 100 ML IV ×3 (14:05→23:30)
[2017-05-08 14:09] LABS: BASO % 0 % (0-3); EOS # 0.6 x10^3/uL (0.0-0.7); EOS % 4 % (0-3); HEMATOCRIT 28.9 % (36.0-47.0); HEMOGLOBIN 9.2 g/dL (12.0-15.5); LYMPH # 1.6 x10^3/uL (1.0-4.8); LYMPH % 12 % (24-48); MEAN CORPUSCULAR HEMOGLOBIN 30 pg (25-35); MEAN CORPUSCULAR HGB CONC 32 g/dL (31-37); MEAN CORPUSCULAR VOLUME 94 fL (79-100); MONO # 1.4 x10^3/uL (0.0-1.1); MONO % 10 % (0-9); NEUT # 10.3 x10^3uL (1.8-7.7); NEUT % 74 % (31-73); PLATELET COUNT 194 x10^3/uL (140-400); RED BLOOD COUNT 3.09 x10^6/uL (3.50-5.40); RED CELL DISTRIBUTION WIDTH 17.7 % (11.5-14.5); WHITE BLOOD COUNT 13.9 x10^3/uL (4.0-11.0)
[2017-05-08 14:16] LABS: ANION GAP 8 (6-14); BLOOD UREA NITROGEN 15 mg/dL (7-20); CALCIUM 8.5 mg/dL (8.5-10.1); CARBON DIOXIDE 34 mmol/L (21-32); CHLORIDE 100 mmol/L (98-107); CREATININE 1.2 mg/dL (0.6-1.0); GFR 48.8; GLUCOSE 115 mg/dL (70-99); POTASSIUM 3.1 mmol/L (3.5-5.1); SODIUM 142 mmol/L (136-145)
[2017-05-08] MEDS: MORPHINE SULFATE 4 MG/ML DISP.SYRIN. IV ×3 (14:19→21:14)
[2017-05-08] MEDS: ONDANSETRON PF 4 MG/2 ML VIAL. IV (14:20)
[2017-05-08 14:21] LABS: ALBUMIN 3.2 g/dL (3.4-5.0); ALK PHOS 137 U/L (46-116); ALT (SGPT) 15 U/L (14-59); AST (SGOT) 22 U/L (15-37); DIRECT BILIRUBIN 0.2 mg/dL (0.0-0.2); TOTAL BILIRUBIN 0.7 mg/dL (0.2-1.0); TOTAL PROTEIN 7.1 g/dL (6.4-8.2)
[2017-05-08 16:13] LABS: PLT ESTIMATE ADEQUATE (ADEQUATE)
[2017-05-08 16:14] LABS: ANISOCYTOSIS SLIGHT; POIKILOCYTOSIS SLIGHT
[2017-05-08] MEDS: ACETAMINOPHEN 325 MG TABLET. PO (17:31)
[2017-05-08] MEDS: LACTOBACILLUS RHAMNOSUS GG 1 CAPSULE. PO (20:52)
[2017-05-08] MEDS ORDERED: NON FORMULARY ITEM (Albuterol Sulfate (Proair Hfa Inhaler) 1 PUFF) INH (21:30)
[2017-05-08] MEDS ORDERED: MEROPENEM 1 GM in IV NORMAL SALINE 100ML 100 ML IV (22:00)
[2017-05-08] MEDS: ENOXAPARIN 40 MG/0.4 ML SYRINGE. SQ (22:00)
[2017-05-08] MEDS ORDERED: AMITRIPTYLINE HCL 50 MG TABLET PO (22:15)
[2017-05-08] MEDS ORDERED: PANTOPRAZOLE 40 MG TABLET.DR. PO (22:30)
[2017-05-08] MEDS ORDERED: ALBUTEROL SULFATE 2.5 MG/3 ML NEBU. NEB (22:45)
[2017-05-08] MEDS: BUPRENORPHINE HCL 300 MCG BC (23:00)
[2017-05-08] MEDS: NAPROXEN 500 MG TABLET PO (23:29)
[2017-05-08] MEDS: FLUOXETINE HCL PO (23:29)
[2017-05-08] MEDS: OLANZAPINE PO (23:29)
[2017-05-08] MEDS: ATORVASTATIN CALCIUM 40 MG TABLET. PO (23:29)
[2017-05-08] MEDS: busPIRone 10 MG TABLET. PO (23:29)
[2017-05-08] MEDS: diphenhydrAMINE HCL 25 MG CAPSULE PO (23:30)
[2017-05-08] MEDS: tiZANidine 4 MG TABLET. PO (23:30)
[2017-05-08] MEDS: MONTELUKAST SODIUM 10 MG TABLET. PO (23:30)
[2017-05-08] MEDS: PREGABALIN 75 MG CAPSULE PO (23:30)
[2017-05-08] MEDS: PROCHLORPERAZINE 5 MG TABLET. PO (23:30)
[2017-05-09 05:20] LABS: ADD MAN DIFF? NO
[2017-05-09 05:50] LABS: BASO % 0 % (0-3); EOS # 0.6 x10^3/uL (0.0-0.7); EOS % 5 % (0-3); HEMATOCRIT 29.3 % (36.0-47.0); HEMOGLOBIN 9.1 g/dL (12.0-15.5); LYMPH # 1.2 x10^3/uL (1.0-4.8); LYMPH % 10 % (24-48); MEAN CORPUSCULAR HEMOGLOBIN 29 pg (25-35); MEAN CORPUSCULAR HGB CONC 31 g/dL (31-37); MEAN CORPUSCULAR VOLUME 95 fL (79-100); MONO # 1.4 x10^3/uL (0.0-1.1); MONO % 12 % (0-9); NEUT # 8.7 x10^3uL (1.8-7.7); NEUT % 73 % (31-73); PLATELET COUNT 170 x10^3/uL (140-400); RED CELL DISTRIBUTION WIDTH 16.9 % (11.5-14.5); WHITE BLOOD COUNT 11.9 x10^3/uL (4.0-11.0)
[2017-05-09 06:03] LABS: ANION GAP 6 (6-14); BLOOD UREA NITROGEN 16 mg/dL (7-20); CALCIUM 8.3 mg/dL (8.5-10.1); CARBON DIOXIDE 34 mmol/L (21-32); CHLORIDE 103 mmol/L (98-107); CREATININE 1.2 mg/dL (0.6-1.0); GFR 48.8; GLUCOSE 115 mg/dL (70-99); POTASSIUM 3.1 mmol/L (3.5-5.1); SODIUM 143 mmol/L (136-145)
[2017-05-09] MEDS: LEVOTHYROXINE 75 MCG TABLET PO (06:21)
[2017-05-09] MEDS: MEROPENEM 1 GM in IV NORMAL SALINE 100ML 100 ML IV ×3 (06:22→21:43)
[2017-05-09] MEDS: MORPHINE SULFATE 4 MG/ML DISP.SYRIN. IV ×2 (07:49→12:26)
[2017-05-09] MEDS: ASPIRIN 325 MG TABLET PO (07:49)
[2017-05-09] MEDS: LACTOBACILLUS RHAMNOSUS GG 1 CAPSULE. PO ×2 (07:50→20:57)
[2017-05-09] MEDS: NAPROXEN 500 MG TABLET PO ×2 (07:50→20:55)
[2017-05-09] MEDS: FUROSEMIDE 40 MG TABLET. PO ×2 (07:50→15:08)
[2017-05-09] MEDS: POTASSIUM CHLORIDE 20 MEQ TABLET.ER. PO ×3 (07:50→20:57)
[2017-05-09] MEDS: MULTIVITAMIN with MINERAL TABLET. PO (07:50)
[2017-05-09] MEDS: PHENAZOPYRIDINE 200 MG TABLET. PO ×3 (07:50→17:41)
[2017-05-09] MEDS: FERROUS SULFATE 325 MG TABLET. PO (07:50)
[2017-05-09] MEDS: busPIRone 10 MG TABLET. PO ×3 (07:50→20:57)
[2017-05-09] MEDS: BUPRENORPHINE HCL 300 MCG BC ×2 (07:51→20:59)
[2017-05-09] MEDS: PROCHLORPERAZINE 5 MG TABLET. PO ×3 (07:51→21:00)
[2017-05-09] MEDS: tiZANidine 4 MG TABLET. PO ×3 (07:51→20:57)
[2017-05-09] MEDS: PREGABALIN 75 MG CAPSULE PO ×2 (09:00→20:58)
[2017-05-09] MEDS ORDERED: BUDESONIDE NS (09:00)
[2017-05-09] MEDS ORDERED: oxyCODONE/APAP 5/325 1 TAB TABLET PO (10:45)
[2017-05-09] MEDS: IV NORMAL SALINE 1000ML BAG 1,000 ML IV (11:04)
[2017-05-09] MEDS: ENOXAPARIN 40 MG/0.4 ML SYRINGE. SQ ×2 (15:00→21:34)
[2017-05-09] MEDS: oxyCODONE/APAP 10/325 1 TAB TABLET PO ×2 (17:42→22:25)
[2017-05-09] MEDS: FLUOXETINE HCL PO (20:54)
[2017-05-09] MEDS: OLANZAPINE PO (20:54)
[2017-05-09] MEDS: ATORVASTATIN CALCIUM 40 MG TABLET. PO (20:55)
[2017-05-09] MEDS: MONTELUKAST SODIUM 10 MG TABLET. PO (20:55)
[2017-05-09] MEDS: diphenhydrAMINE HCL 25 MG CAPSULE PO (20:56)
[2017-05-09] MEDS: PANTOPRAZOLE 40 MG TABLET.DR. PO (20:57)
[2017-05-09] MEDS ORDERED: AMITRIPTYLINE HCL PO (21:00)
[2017-05-09] MEDS ORDERED: NON FORMULARY ITEM (Melatonin 10 MG) PO (21:00)
[2017-05-09] MEDS: AMITRIPTYLINE HCL 50 MG TABLET PO (21:41)
[2017-05-10] MEDS: oxyCODONE/APAP 10/325 1 TAB TABLET PO ×3 (04:06→20:02)
[2017-05-10] MEDS: MEROPENEM 1 GM in IV NORMAL SALINE 100ML 100 ML IV ×3 (06:00→22:03)
[2017-05-10] MEDS: LEVOTHYROXINE 75 MCG TABLET PO (06:15)
[2017-05-10] MEDS: FUROSEMIDE 40 MG TABLET. PO ×2 (08:15→14:44)
[2017-05-10] MEDS: NAPROXEN 500 MG TABLET PO ×2 (08:15→22:01)
[2017-05-10] MEDS: FERROUS SULFATE 325 MG TABLET. PO (08:15)
[2017-05-10] MEDS: PREGABALIN 75 MG CAPSULE PO ×2 (08:15→22:01)
[2017-05-10] MEDS: PROCHLORPERAZINE 5 MG TABLET. PO ×3 (08:16→22:01)
[2017-05-10] MEDS: LACTOBACILLUS RHAMNOSUS GG 1 CAPSULE. PO ×2 (08:16→22:00)
[2017-05-10] MEDS: busPIRone 10 MG TABLET. PO ×3 (08:16→22:01)
[2017-05-10] MEDS: POTASSIUM CHLORIDE 20 MEQ TABLET.ER. PO ×2 (08:17→22:00)
[2017-05-10] MEDS: ASPIRIN 325 MG TABLET PO (08:17)
[2017-05-10] MEDS: tiZANidine 4 MG TABLET. PO ×3 (08:17→22:00)
[2017-05-10] MEDS: MULTIVITAMIN with MINERAL TABLET. PO (08:17)
[2017-05-10] MEDS: PHENAZOPYRIDINE 200 MG TABLET. PO ×3 (08:17→17:57)
[2017-05-10 08:43] LABS: ADD MAN DIFF? NO
[2017-05-10 08:47] LABS: BASO % 0 % (0-3); EOS # 0.8 x10^3/uL (0.0-0.7); EOS % 9 % (0-3); HEMATOCRIT 28.6 % (36.0-47.0); HEMOGLOBIN 8.9 g/dL (12.0-15.5); LYMPH # 1.6 x10^3/uL (1.0-4.8); LYMPH % 17 % (24-48); MEAN CORPUSCULAR HEMOGLOBIN 30 pg (25-35); MEAN CORPUSCULAR HGB CONC 31 g/dL (31-37); MEAN CORPUSCULAR VOLUME 95 fL (79-100); MONO # 1.3 x10^3/uL (0.0-1.1); MONO % 14 % (0-9); NEUT # 5.5 x10^3uL (1.8-7.7); NEUT % 60 % (31-73); PLATELET COUNT 157 x10^3/uL (140-400); RED BLOOD COUNT 3.01 x10^6/uL (3.50-5.40); RED CELL DISTRIBUTION WIDTH 16.5 % (11.5-14.5); WHITE BLOOD COUNT 9.2 x10^3/uL (4.0-11.0)
[2017-05-10 09:05] LABS: POTASSIUM 3.2 mmol/L (3.5-5.1)
[2017-05-10] MEDS: ENOXAPARIN 40 MG/0.4 ML SYRINGE. SQ ×2 (10:00→21:58)
[2017-05-10] MEDS: BUPRENORPHINE HCL 300 MCG BC ×2 (10:07→22:02)
[2017-05-10] MEDS: VANCOMYCIN 2 GM in IV DEXTROSE 5 %-0.2 % NACL 500 ML IV (10:08)
[2017-05-10] MEDS: VANCOMYCIN PER PHARMACY MC ×2 (10:46→10:57)
[2017-05-10] MEDS: AMITRIPTYLINE HCL 50 MG TABLET PO (21:59)
[2017-05-10] MEDS: ATORVASTATIN CALCIUM 40 MG TABLET. PO (21:59)
[2017-05-10] MEDS: PANTOPRAZOLE 40 MG TABLET.DR. PO (21:59)
[2017-05-10] MEDS: MONTELUKAST SODIUM 10 MG TABLET. PO (22:00)
[2017-05-10] MEDS: diphenhydrAMINE HCL 25 MG CAPSULE PO (22:02)
[2017-05-10] MEDS: OLANZAPINE PO (22:47)
[2017-05-10] MEDS: FLUOXETINE HCL PO (22:47)
[2017-05-10] MEDS: ACETAMINOPHEN 325 MG TABLET. PO (23:54)
[2017-05-11] MEDS: oxyCODONE/APAP 10/325 1 TAB TABLET PO ×5 (03:30→21:52)
[2017-05-11] MEDS: VANCOMYCIN 2 GM in IV DEXTROSE 5 %-0.2 % NACL 500 ML IV (03:30)
[2017-05-11] MEDS: LEVOTHYROXINE 75 MCG TABLET PO (06:09)
[2017-05-11] MEDS: MEROPENEM 1 GM in IV NORMAL SALINE 100ML 100 ML IV ×3 (06:10→21:51)
[2017-05-11] MEDS: ACETAMINOPHEN 325 MG TABLET. PO (06:12)
[2017-05-11 06:35] LABS: ADD MAN DIFF? NO
[2017-05-11 06:38] LABS: BASO % 0 % (0-3); EOS # 0.9 x10^3/uL (0.0-0.7); EOS % 11 % (0-3); HEMATOCRIT 28.6 % (36.0-47.0); HEMOGLOBIN 8.9 g/dL (12.0-15.5); LYMPH % 25 % (24-48); MEAN CORPUSCULAR HEMOGLOBIN 29 pg (25-35); MEAN CORPUSCULAR HGB CONC 31 g/dL (31-37); MEAN CORPUSCULAR VOLUME 94 fL (79-100); MONO # 0.9 x10^3/uL (0.0-1.1); MONO % 11 % (0-9); NEUT # 4.1 x10^3uL (1.8-7.7); NEUT % 52 % (31-73); PLATELET COUNT 180 x10^3/uL (140-400); RED BLOOD COUNT 3.05 x10^6/uL (3.50-5.40); RED CELL DISTRIBUTION WIDTH 16.3 % (11.5-14.5); WHITE BLOOD COUNT 7.9 x10^3/uL (4.0-11.0)
[2017-05-11 06:53] LABS: ALBUMIN 2.8 g/dL (3.4-5.0); ALBUMIN/GLOBULIN RATIO 0.8 (1.0-1.7); ALK PHOS 138 U/L (46-116); ALT (SGPT) 16 U/L (14-59); ANION GAP 4 (6-14); AST (SGOT) 20 U/L (15-37); BLOOD UREA NITROGEN 14 mg/dL (7-20); BUN/CREATININE RATIO 11 (6-20); CALCIUM 8.5 mg/dL (8.5-10.1); CARBON DIOXIDE 35 mmol/L (21-32); CHLORIDE 105 mmol/L (98-107); CREATININE 1.3 mg/dL (0.6-1.0); GFR 44.5; GLUCOSE 101 mg/dL (70-99); MAGNESIUM 2.1 mg/dL (1.8-2.4); POTASSIUM 3.4 mmol/L (3.5-5.1); SODIUM 144 mmol/L (136-145); TOTAL BILIRUBIN 0.5 mg/dL (0.2-1.0); TOTAL PROTEIN 6.3 g/dL (6.4-8.2)
[2017-05-11] MEDS: ASPIRIN 325 MG TABLET PO (09:06)
[2017-05-11] MEDS: POTASSIUM CHLORIDE 20 MEQ TABLET.ER. PO ×2 (09:06→21:07)
[2017-05-11] MEDS: MULTIVITAMIN with MINERAL TABLET. PO (09:06)
[2017-05-11] MEDS: BUPRENORPHINE HCL 300 MCG BC ×2 (09:06→21:00)
[2017-05-11] MEDS: NAPROXEN 500 MG TABLET PO ×2 (09:07→21:06)
[2017-05-11] MEDS: PROCHLORPERAZINE 5 MG TABLET. PO ×3 (09:07→21:07)
[2017-05-11] MEDS: PREGABALIN 75 MG CAPSULE PO ×2 (09:07→21:04)
[2017-05-11] MEDS: tiZANidine 4 MG TABLET. PO ×3 (09:07→21:06)
[2017-05-11] MEDS: busPIRone 10 MG TABLET. PO ×3 (09:07→21:05)
[2017-05-11] MEDS: PHENAZOPYRIDINE 200 MG TABLET. PO ×3 (09:07→17:33)
[2017-05-11] MEDS: LACTOBACILLUS RHAMNOSUS GG 1 CAPSULE. PO ×2 (09:07→21:06)
[2017-05-11] MEDS: FUROSEMIDE 40 MG TABLET. PO ×2 (09:07→15:05)
[2017-05-11] MEDS: FERROUS SULFATE 325 MG TABLET. PO (09:07)
[2017-05-11] MEDS: ENOXAPARIN 40 MG/0.4 ML SYRINGE. SQ ×2 (09:11→21:09)
[2017-05-11] MEDS ORDERED: MEROPENEM IV Push 1 GM VIAL. IVP (14:00)
[2017-05-11] MEDS: OLANZAPINE PO (21:02)
[2017-05-11] MEDS: FLUOXETINE HCL PO (21:02)
[2017-05-11] MEDS: MONTELUKAST SODIUM 10 MG TABLET. PO (21:05)
[2017-05-11] MEDS: PANTOPRAZOLE 40 MG TABLET.DR. PO (21:05)
[2017-05-11] MEDS: diphenhydrAMINE HCL 25 MG CAPSULE PO (21:06)
[2017-05-11] MEDS: AMITRIPTYLINE HCL 50 MG TABLET PO (21:06)
[2017-05-11] MEDS: ATORVASTATIN CALCIUM 40 MG TABLET. PO (21:07)
[2017-05-12] MEDS: LEVOTHYROXINE 75 MCG TABLET PO (05:39)
[2017-05-12] MEDS: MEROPENEM 1 GM in IV NORMAL SALINE 100ML 100 ML IV (05:39)
[2017-05-12] MEDS: oxyCODONE/APAP 10/325 1 TAB TABLET PO ×2 (05:45→09:59)
[2017-05-12] MEDS: ASPIRIN 325 MG TABLET PO (07:38)
[2017-05-12] MEDS: LACTOBACILLUS RHAMNOSUS GG 1 CAPSULE. PO (07:38)
[2017-05-12] MEDS: PREGABALIN 75 MG CAPSULE PO (07:38)
[2017-05-12] MEDS: NAPROXEN 500 MG TABLET PO (07:38)
[2017-05-12] MEDS: FUROSEMIDE 40 MG TABLET. PO (07:38)
[2017-05-12] MEDS: FERROUS SULFATE 325 MG TABLET. PO (07:39)
[2017-05-12] MEDS: PHENAZOPYRIDINE 200 MG TABLET. PO ×2 (07:39→12:56)
[2017-05-12] MEDS: tiZANidine 4 MG TABLET. PO (07:39)
[2017-05-12] MEDS: MULTIVITAMIN with MINERAL TABLET. PO (07:39)
[2017-05-12] MEDS: POTASSIUM CHLORIDE 20 MEQ TABLET.ER. PO (07:39)
[2017-05-12] MEDS: busPIRone 10 MG TABLET. PO (07:39)
[2017-05-12] MEDS: PROCHLORPERAZINE 5 MG TABLET. PO (07:40)
[2017-05-12] MEDS: ENOXAPARIN 40 MG/0.4 ML SYRINGE. SQ (09:59)
[2017-05-12] MEDS: BUPRENORPHINE HCL 300 MCG BC (09:59)
[2017-05-12] MEDS: ERTAPENEM 1GM IVPB FOR OMNI 50 ML IV (11:45)
== END 2017-05-12 13:16 | disposition home or self-care (01) | DRG 872 ==
LOC: ER 11:25 → 5 SOUTH 13:26
PROC: 05H533Z Insertion of Infusion Device into Right Subclavian Vein, Percutaneous Approach (ICD-10-PCS; principal; 2017-05-10)
PROC: B546ZZA Ultrasonography of Right Subclavian Vein, Guidance (ICD-10-PCS; 2017-05-10)
DX: A41.9 Sepsis, unspecified organism (principal); E66.01 Morbid (severe) obesity due to excess calories; I50.9 Heart failure, unspecified; N39.0 Urinary tract infection, site not specified; Z68.41 Body mass index [BMI] 40.0-44.9, adult; E03.9 Hypothyroidism, unspecified; E78.00 Pure hypercholesterolemia, unspecified; E78.5 Hyperlipidemia, unspecified; K21.9 Gastro-esophageal reflux disease without esophagitis; G47.33 Obstructive sleep apnea (adult) (pediatric); G89.4 Chronic pain syndrome; I87.8 Other specified disorders of veins; I89.0 Lymphedema, not elsewhere classified; J45.909 Unspecified asthma, uncomplicated; K58.9 Irritable bowel syndrome, unspecified; M79.7 Fibromyalgia; G43.909 Migraine, unspecified, not intractable, without status migrainosus; F41.9 Anxiety disorder, unspecified; F31.9 Bipolar disorder, unspecified; F98.8 Other specified behavioral and emotional disorders with onset usually occurring in childhood and adolescence; M19.90 Unspecified osteoarthritis, unspecified site; B96.20 Unspecified Escherichia coli [E. coli] as the cause of diseases classified elsewhere; Z16.12 Extended spectrum beta lactamase (ESBL) resistance; Z90.710 Acquired absence of both cervix and uterus; Z82.3 Family history of stroke; Z82.49 Family history of ischemic heart disease and other diseases of the circulatory system; Z83.3 Family history of diabetes mellitus; Z86.73 Personal history of transient ischemic attack (TIA), and cerebral infarction without residual deficits; Z98.84 Bariatric surgery status; Z90.49 Acquired absence of other specified parts of digestive tract; Z91.018 Allergy to other foods; Z91.048 Other nonmedicinal substance allergy status; Z88.1 Allergy status to other antibiotic agents; Z88.8 Allergy status to other drugs, medicaments and biological substances; Z79.899 Other long term (current) drug therapy
CPT/HCPCS: 36415; 36569; 80048; 80053; 80076; 81001; 81025; 83735; 84132; 85025; 87040; 87086; 87186; 87205; 96365; 96375; 99285-25; J1335; J2185; J2270; J2405; J3370; J7030; Q0163; Q0164

== ENCOUNTER → 2017-05-21 | Outpatient (CLI) | payer MEDICARE ==
[2017-05-21] MEDS: OXYMETAZOLINE 0.05% NASAL SPRAY 30ML BOTTLE. NS (21:00)
== END | disposition home or self-care (01) ==
LOC: SLPLAB 18:32
DX: G47.33 Obstructive sleep apnea (adult) (pediatric) (principal)
CPT/HCPCS: 95810

== ENCOUNTER → 2017-06-03 | Outpatient (CLI) | payer MEDICARE | END | disposition home or self-care (01) | LOC: RT 18:39 | DX: G47.33 Obstructive sleep apnea (adult) (pediatric) (principal); E78.5 Hyperlipidemia, unspecified; E78.00 Pure hypercholesterolemia, unspecified; E03.9 Hypothyroidism, unspecified; Z87.891 Personal history of nicotine dependence | CPT/HCPCS: 95811 ==

== ENCOUNTER 2017-06-21 17:48 | Emergency (ER) | payer MEDICARE | END 2017-06-21 18:55 | disposition home or self-care (01) | LOC: ER 17:48 | DX: R04.0 Epistaxis (principal); R09.81 Nasal congestion; E78.00 Pure hypercholesterolemia, unspecified; K21.9 Gastro-esophageal reflux disease without esophagitis; J45.909 Unspecified asthma, uncomplicated; M79.7 Fibromyalgia; I50.9 Heart failure, unspecified; G43.909 Migraine, unspecified, not intractable, without status migrainosus; Z86.73 Personal history of transient ischemic attack (TIA), and cerebral infarction without residual deficits; Z98.84 Bariatric surgery status; Z79.82 Long term (current) use of aspirin; Z88.1 Allergy status to other antibiotic agents; Z91.041 Radiographic dye allergy status; Z88.8 Allergy status to other drugs, medicaments and biological substances; Z91.018 Allergy to other foods | CPT/HCPCS: 99281 ==

== ENCOUNTER 2017-08-02 14:50 | Emergency (ER) | payer MEDICARE ==
[2017-08-02 15:44] LABS: ADD MAN DIFF? NO
[2017-08-02] MEDS ORDERED: IV NORMAL SALINE 1000ML BAG 1,000 ML IV (15:45)
[2017-08-02 15:47] LABS: BASO % 0 % (0-3); EOS # 0.5 x10^3/uL (0.0-0.7); EOS % 5 % (0-3); HEMATOCRIT 31.8 % (36.0-47.0); HEMOGLOBIN 10.1 g/dL (12.0-15.5); LYMPH # 2.7 x10^3/uL (1.0-4.8); LYMPH % 24 % (24-48); MEAN CORPUSCULAR HEMOGLOBIN 28 pg (25-35); MEAN CORPUSCULAR HGB CONC 32 g/dL (31-37); MEAN CORPUSCULAR VOLUME 89 fL (79-100); MONO # 0.4 x10^3/uL (0.0-1.1); MONO % 3 % (0-9); NEUT # 7.5 x10^3uL (1.8-7.7); NEUT % 67 % (31-73); PLATELET COUNT 181 x10^3/uL (140-400); RED BLOOD COUNT 3.56 x10^6/uL (3.50-5.40); RED CELL DISTRIBUTION WIDTH 15.3 % (11.5-14.5); WHITE BLOOD COUNT 11.1 x10^3/uL (4.0-11.0)
[2017-08-02 15:49] LABS: BILIRUBIN,URINE NEGATIVE (NEG); CLARITY,URINE CLEAR; COLOR,URINE ORANGE; GLUCOSE,URINE NEGATIVE (NEG); PROTEIN,URINE NEGATIVE (NEG-TRACE)
[2017-08-02 16:03] LABS: BACTERIA,URINE FEW /HPF (0-FEW); NITRITE,URINE NEGATIVE (NEG); RBC,URINE 0 /HPF (0-2); SQUAMOUS EPITHELIAL CELL,UR MANY /LPF; WBC,URINE 20-40 /HPF (0-4)
[2017-08-02 16:05] LABS: ALBUMIN 3.5 g/dL (3.4-5.0); ALBUMIN/GLOBULIN RATIO 0.9 (1.0-1.7); ALK PHOS 155 U/L (46-116); ALT (SGPT) 18 U/L (14-59); ANION GAP 9 (6-14); AST (SGOT) 24 U/L (15-37); BLOOD UREA NITROGEN 10 mg/dL (7-20); BUN/CREATININE RATIO 8 (6-20); CALCIUM 8.7 mg/dL (8.5-10.1); CARBON DIOXIDE 30 mmol/L (21-32); CHLORIDE 103 mmol/L (98-107); CREATININE 1.3 mg/dL (0.6-1.0); GFR 44.5; GLUCOSE 181 mg/dL (70-99); LIPASE 75 U/L (73-393); SODIUM 142 mmol/L (136-145); TOTAL BILIRUBIN 0.5 mg/dL (0.2-1.0); TOTAL PROTEIN 7.4 g/dL (6.4-8.2)
[2017-08-02 16:07] LABS: POTASSIUM 2.8 mmol/L (3.5-5.1)
[2017-08-02] MEDS: POTASSIUM CHLORIDE 20 MEQ TABLET.ER. PO (16:54)
[2017-08-02] MEDS: KETOROLAC 30 MG/ML INJ. IV (16:55)
== END 2017-08-02 17:11 | disposition home or self-care (01) ==
LOC: ER 14:50
DX: L03.116 Cellulitis of left lower limb (principal); L03.115 Cellulitis of right lower limb; N30.20 Other chronic cystitis without hematuria; R04.0 Epistaxis; E87.6 Hypokalemia; M19.90 Unspecified osteoarthritis, unspecified site; J45.909 Unspecified asthma, uncomplicated; M79.7 Fibromyalgia; K21.9 Gastro-esophageal reflux disease without esophagitis; E78.00 Pure hypercholesterolemia, unspecified; G43.909 Migraine, unspecified, not intractable, without status migrainosus; I50.9 Heart failure, unspecified; E66.9 Obesity, unspecified; Z68.41 Body mass index [BMI] 40.0-44.9, adult; Z88.1 Allergy status to other antibiotic agents; Z91.041 Radiographic dye allergy status; Z91.018 Allergy to other foods; Z88.8 Allergy status to other drugs, medicaments and biological substances
CPT/HCPCS: 36415; 80053; 81001; 83690; 85025; 87086; 87186; 96374; 99284-25; J1885

== ENCOUNTER → 2017-08-04 | Outpatient (CLI) | payer MEDICARE | END | disposition home or self-care (01) | LOC: PMGWOUND 12:28 | DX: I87.313 Chronic venous hypertension (idiopathic) with ulcer of bilateral lower extremity (principal); L97.211 Non-pressure chronic ulcer of right calf limited to breakdown of skin; L97.221 Non-pressure chronic ulcer of left calf limited to breakdown of skin; G89.29 Other chronic pain; F32.9 Major depressive disorder, single episode, unspecified; J45.909 Unspecified asthma, uncomplicated; F41.9 Anxiety disorder, unspecified; F98.8 Other specified behavioral and emotional disorders with onset usually occurring in childhood and adolescence; K21.9 Gastro-esophageal reflux disease without esophagitis; I11.0 Hypertensive heart disease with heart failure; I50.9 Heart failure, unspecified; G43.909 Migraine, unspecified, not intractable, without status migrainosus; E78.00 Pure hypercholesterolemia, unspecified; Z86.73 Personal history of transient ischemic attack (TIA), and cerebral infarction without residual deficits; Z79.82 Long term (current) use of aspirin; Z87.891 Personal history of nicotine dependence; Z68.41 Body mass index [BMI] 40.0-44.9, adult | CPT/HCPCS: 29581 ==

== ENCOUNTER → 2017-08-07 | Outpatient (CLI) | payer MEDICARE | END | disposition home or self-care (01) | LOC: PMGWOUND 09:05 | DX: L97.811 Non-pressure chronic ulcer of other part of right lower leg limited to breakdown of skin (principal); L97.821 Non-pressure chronic ulcer of other part of left lower leg limited to breakdown of skin; I87.2 Venous insufficiency (chronic) (peripheral); F41.9 Anxiety disorder, unspecified; K21.9 Gastro-esophageal reflux disease without esophagitis; I11.0 Hypertensive heart disease with heart failure; I50.9 Heart failure, unspecified; F32.9 Major depressive disorder, single episode, unspecified; G43.909 Migraine, unspecified, not intractable, without status migrainosus; G89.29 Other chronic pain; E78.00 Pure hypercholesterolemia, unspecified; J45.909 Unspecified asthma, uncomplicated; E66.9 Obesity, unspecified; M19.90 Unspecified osteoarthritis, unspecified site; Z68.41 Body mass index [BMI] 40.0-44.9, adult; Z87.891 Personal history of nicotine dependence; Z86.73 Personal history of transient ischemic attack (TIA), and cerebral infarction without residual deficits | CPT/HCPCS: 99214 ==

== ENCOUNTER → 2017-08-14 | Outpatient (CLI) | payer MEDICARE | END | disposition home or self-care (01) | LOC: PMGWOUND 10:03 | DX: I87.313 Chronic venous hypertension (idiopathic) with ulcer of bilateral lower extremity (principal); L97.211 Non-pressure chronic ulcer of right calf limited to breakdown of skin; L97.221 Non-pressure chronic ulcer of left calf limited to breakdown of skin; G89.29 Other chronic pain; F32.9 Major depressive disorder, single episode, unspecified; J45.909 Unspecified asthma, uncomplicated; F41.9 Anxiety disorder, unspecified; F98.8 Other specified behavioral and emotional disorders with onset usually occurring in childhood and adolescence; K21.9 Gastro-esophageal reflux disease without esophagitis; I11.0 Hypertensive heart disease with heart failure; I50.9 Heart failure, unspecified; G43.909 Migraine, unspecified, not intractable, without status migrainosus; E78.00 Pure hypercholesterolemia, unspecified; Z86.73 Personal history of transient ischemic attack (TIA), and cerebral infarction without residual deficits; Z79.82 Long term (current) use of aspirin; Z87.891 Personal history of nicotine dependence; Z68.41 Body mass index [BMI] 40.0-44.9, adult | CPT/HCPCS: 99214 ==

== ENCOUNTER → 2017-08-26 | Outpatient (CLI) | payer MEDICARE | END | disposition home or self-care (01) | LOC: PMGWOUND 10:59 | DX: I89.0 Lymphedema, not elsewhere classified (principal); G89.29 Other chronic pain; F32.9 Major depressive disorder, single episode, unspecified; J45.909 Unspecified asthma, uncomplicated; F41.9 Anxiety disorder, unspecified; F98.8 Other specified behavioral and emotional disorders with onset usually occurring in childhood and adolescence; K21.9 Gastro-esophageal reflux disease without esophagitis; I11.0 Hypertensive heart disease with heart failure; I50.9 Heart failure, unspecified; G43.909 Migraine, unspecified, not intractable, without status migrainosus; E78.00 Pure hypercholesterolemia, unspecified; Z86.73 Personal history of transient ischemic attack (TIA), and cerebral infarction without residual deficits; Z79.82 Long term (current) use of aspirin; Z87.891 Personal history of nicotine dependence; Z68.41 Body mass index [BMI] 40.0-44.9, adult | CPT/HCPCS: 99213 ==

== ENCOUNTER → 2017-09-23 | Outpatient (CLI) | payer MEDICARE | END | disposition home or self-care (01) | LOC: PMGWOUND 10:32 | DX: I87.313 Chronic venous hypertension (idiopathic) with ulcer of bilateral lower extremity (principal); L97.211 Non-pressure chronic ulcer of right calf limited to breakdown of skin; L97.221 Non-pressure chronic ulcer of left calf limited to breakdown of skin; I89.0 Lymphedema, not elsewhere classified; G89.29 Other chronic pain; F32.9 Major depressive disorder, single episode, unspecified; J45.909 Unspecified asthma, uncomplicated; F41.9 Anxiety disorder, unspecified; F98.8 Other specified behavioral and emotional disorders with onset usually occurring in childhood and adolescence; K21.9 Gastro-esophageal reflux disease without esophagitis; I11.0 Hypertensive heart disease with heart failure; I50.9 Heart failure, unspecified; G43.909 Migraine, unspecified, not intractable, without status migrainosus; E78.00 Pure hypercholesterolemia, unspecified; M19.90 Unspecified osteoarthritis, unspecified site; Z86.73 Personal history of transient ischemic attack (TIA), and cerebral infarction without residual deficits; Z87.891 Personal history of nicotine dependence; Z68.41 Body mass index [BMI] 40.0-44.9, adult; Z79.82 Long term (current) use of aspirin | CPT/HCPCS: 29581 ==

== ENCOUNTER → 2017-09-26 | Outpatient (CLI) | payer MEDICARE | END | disposition home or self-care (01) | LOC: PMGWOUND 12:10 | DX: I87.313 Chronic venous hypertension (idiopathic) with ulcer of bilateral lower extremity (principal); L97.211 Non-pressure chronic ulcer of right calf limited to breakdown of skin; L97.221 Non-pressure chronic ulcer of left calf limited to breakdown of skin; I89.0 Lymphedema, not elsewhere classified; G89.29 Other chronic pain; F32.9 Major depressive disorder, single episode, unspecified; J45.909 Unspecified asthma, uncomplicated; F41.9 Anxiety disorder, unspecified; F98.8 Other specified behavioral and emotional disorders with onset usually occurring in childhood and adolescence; K21.9 Gastro-esophageal reflux disease without esophagitis; I11.0 Hypertensive heart disease with heart failure; I50.9 Heart failure, unspecified; G43.909 Migraine, unspecified, not intractable, without status migrainosus; E78.00 Pure hypercholesterolemia, unspecified; M19.90 Unspecified osteoarthritis, unspecified site; E66.9 Obesity, unspecified; Z86.73 Personal history of transient ischemic attack (TIA), and cerebral infarction without residual deficits; Z87.891 Personal history of nicotine dependence; Z68.41 Body mass index [BMI] 40.0-44.9, adult; Z79.82 Long term (current) use of aspirin | CPT/HCPCS: 29581 ==

== ENCOUNTER 2018-03-25 12:44 | Emergency (ER) | payer MEDICARE ==
[~2018-03-25] VITALS: Ht 177.8 cm; Wt 128.8 kg
[~2018-03-25 12:44] MED LIST changes: +ALBU2.5V8 INH; +BUPR300F3 BC; +CETI10TA22 PO; +DICL50TA4 PO; +DOCU-109 PO; -FERR-26 PO; +FERR325T14 PO; -GABA-586 PO; +GABA300C18 PO; +HYDR-3164 PO; -HYDR-971 PO; +L.AC1CAP6 PO; +LEVO750T31 PO; +MORP30TA3 PO; +NAPR-514 PO; -NAPR500T4 PO; +NITR100C62 PO; -OXYC-328 PO; +OXYC1TAB22 PO; +OXYC5TAB4 PO; -OXYC5TAB95 PO; +PRED20TA PO; -PROAIR HFA8.5 GM INH; +SODI30SP NS; -SPIR25TA3 PO; +SPIR25TA5 PO; +[UNRECOGNIZED DRUG - CODE] PO
[2018-03-25 13:01] VITALS: BP 144/90
[2018-03-25] MEDS ORDERED: LIDO700A39 TP (13:53)
--- NOTE | 2018-03-25 13:53 | PHYS DOC ---
Past Medical History Past Medical History: Arthritis, Asthma, CHF, CVA, Fibromyalgia, GERD, High Cholesterol, Migraines, Other Additional Past Medical Histor: TACHYCARDIA, E COLI, HYDRONEPHROSIS, cellulitis , INTERSTITIAL CYSTITIS Past Surgical History: Cholecystectomy, Other Additional Past Surgical Histo: LAP BAND 2004, OK EN Y 2013, BREAST REDUCT, R TOE ORTHO, GASTRIC BYPASS Alcohol Use: None Drug Use: None Adult General Chief Complaint Chief Complaint: BACK PAIN OR INJURY HPI HPI 43-year-old female presents to ER for complaints of neck and upper back pain. Patient states she was seen by her chiropractor and had readjustments and since has been having increased neck and back pain. Patient states she's had intermittent numbness and tingling into bilateral upper extremities- but also reports she has had this for years due to arthritis and fibromyalgia. Patient reports in the past she has had chiropractor appointments and for several days after the appointment and readjustment she does have upper back and neck pain which increases. Patient denies any topical sports cream or application of ice or heat. Patient denies headache, dizziness, nausea or vomiting, or swelling in extremities. Patient is on multiple daily prescribed medications for chronic pain including oxymorphone ER, tizanidine, and naproxen. 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 Patient during initial discussion multiple times states she is unable to move her upper extremities or director traffic and planning items however again during initial discussion patient was able to reposition herself and at one point bent over at the waist from a sitting position to picker box operator a large metal cup off of floor-she took a drink from the With unassisted movements from the floor to her mouth And was able to bend back over at the waist from sitting position to place the cup back onto the floor. All movements were purposeful with patient having no episodes of dropping the objects. Pt states she has appt with PCP tomorrow. Review of Systems Review of Systems Constitutional: Denies fever or chills [] Eyes: Denies change in visual acuity, redness, or eye pain [] HENT: Denies nasal congestion or sore throat [] Respiratory: Denies cough or shortness of breath [] Cardiovascular: Denies CP GI: Denies nausea, vomiting, bloody stools or diarrhea. Reports abd pain with no acute change since recent abd surgery : Denies dysuria or hematuria. Denies incontinence bowel/bladder Musculoskeletal: Reports neck/upper back pain. Reports decreased ROM of bilat. upper extremities d/t increased upper back/neck pain Integument: Denies rash, swelling or skin lesions [] Neurologic: Denies headache, focal weakness or sensory changes. Reports intermittent numbness/tingling in bilat. upper extremities- she reports hx of this d/t hx of arthritis/fibramyalgia. Denies dizziness Endocrine: Denies polyuria or polydipsia [] All other systems were reviewed and found to be within normal limits, except as documented in this note. Current Medications Current Medications Current Medications Medications (Trade) Dose Ordered Sig/Sunil Start Time Stop Time Status Last Admin Dose Admin Lidocaine (Lidoderm) 2 patch DAILY 03/25/18 14:00 03/25/18 13:53 2 PATCH Allergies Allergies Allergies Coded Allergies Type Severity Reaction Last Updated Verified adhesive tape Allergy Intermediate SKIN SENSITIVITY 02/09/18 Yes aspartame Allergy Intermediate 02/09/18 Yes erythromycin base Allergy Intermediate 02/09/18 Yes jannie Allergy Intermediate Rash 02/09/18 Yes tetracycline Allergy Intermediate 02/09/18 Yes walnut Allergy Intermediate 02/09/18 Yes I S O L A T I O N *CONTACT* Allergy Unknown 02/09/18 Yes Physical Exam Physical Exam Constitutional: Well developed, well nourished, no acute distress, non-toxic appearance. Clear speech. No facial grimacing with repositioning/speaking. No difficulty swallowing HENT: Normocephalic, atraumatic, mucous membranes pink/dry, nose normal. [] Eyes: Pupils equal, no nystagmus, conjunctiva normal, no discharge. [] Neck: Normal range of motion- pt is moving head side to side during discussion at one point pt was able to bend over at waist from sitting position to picker box operator large metal cup from the floor and take a drink- she then bent over again to place cup onto the floor- pt was able to bend/flex neck with repositioning- no facial grimacing, tender on palp. mid posterior Cspine into lateral sides of neck/upper back- no crepitus or palp. deformity, supple, no stridor/gross adenopathy. Trachea midline Cardiovascular: Heart rate regular Lungs & Thorax: Resp. equal/nonlabored Abdomen: No distention- mid abd surgical site from recent surg. well healing without erythema/drainage from site Skin: Warm, dry, no erythema, no rash. [] Back: Tender on palp. upper sides of back above scapula into lateral sides of neck- no midline thoracic/lumbar tenderness on palp. no palp. spine deformity, no CVA tenderness. [] Extremities: No tenderness, no cyanosis, no clubbing, ROM intact, no edema. 2+ radial bilat. with brisk cap. refill bilat. hands- no discoloration of skin in upper extremities- pt is able to grasp items as she was holding magazine when this provider entered room as well as hold large cup with control of cup to mouth for drink Neurologic: Alert and oriented X 3, normal motor function, normal sensory function, no focal deficits noted. [] Psychologic: Affect normal, judgement normal, mood normal. [] Current Patient Data Vital Signs Vital Signs Date Time Temp Pulse Resp B/P (MAP) Pulse Ox O2 Delivery O2 Flow Rate FiO2 03/25/18 13:01 98.2 110 16 144/90 (108) 96 Room Air 98.2 EKG EKG [] Radiology/Procedures Radiology/Procedures [] Course & Med Decision Making Course & Med Decision Making Pertinent Imaging studies reviewed. (See chart for details) 1340: Indepth conversation had with patient and family at bedside regarding chronic pain management and increased pain following chiropractor appointment this week. Patient and her family member had conflicting stories as to when patient had appointments and what is been ongoing with patient's chronic neck and back pain. Patient has history of fibromyalgia and is on daily narcotics and anti-inflammatories. Patient was offered C-spine CT for further evaluation as last one in patient's record was from 2017. Following discussion patient is not wanting to have CT done while in the ER is agreeable with Lidoderm patch on the lateral sides of neck. Patient during initial encounter was able to all grasp newspapers and paperwork she had on the ER cart as well as was visualized bending from the waist over to picker box operator large cup off of the floor. Patient was able to unassisted drink from the cup and then place the cut back onto the floor again bending at the waist with complete control. Patient had 2+ bilateral radial pulses and brisk capillary refill in bilateral hands. Patient had no skin discoloration or edema in bilateral upper extremities. Patient had no palpable deformity mid C-spine. Patient was visualized moving both upper extremities. Patient states she has primary care physician appointment tomorrow discussed plans for patient to discuss her ER visit along with possible options for outpatient treatment and/or physical therapy. Patient requested prescription for Lidoderm patches will provide small quantity. Patient was instructed that her chronic pain needed to be managed outpatient through her primary doctor as well as neurology. Patient provided on signs and symptoms to return to ER for an discharge instructions were discussed. Dragon Disclaimer Dragon Disclaimer This electronic medical record was generated, in whole or in part, using a voice recognition dictation system. Departure Departure Impression: Primary Impression: Chronic neck and back pain Additional Impression: Exacerbation of chronic back pain Disposition: 01 HOME, SELF-CARE Condition: STABLE Referrals: VIKTORIA ALBERT (PCP) Patient Instructions: Cervical Radiculopathy, Chronic Pain, Chronic Pain Management Additional Instructions: Keep your appointment tomorrow with your doctor and further discuss options for treatment of your chronic pain. The counter options for treatment include Epson salt soaks, topical creams such as icy hot, capsaicin- use as directed on container. Ice and heat compress to affected area every 3-4 hours for 20-30 minutes at a time avoid direct ice contact to skin. Continue home medications as previously prescribed. Lidoderm patch should be removed in 12 hours. Scripts Lidocaine (Lidocaine) 1 Each Adh..patch 1 EACH TP Q12HR PRN for PAIN, #6 PATCH 0 Refills Remove patch in 12 hours and reapply if needed. Prov: VIKTORIA MONTANEZ APRN 03/25/18 Problem Qualifiers VIKTORIA MONTANEZ APRN Mar 25, 2018 13:53
[2018-03-25] MEDS ORDERED: LIDOCAINE (700MG/PATCH) PATCH. TD SCH (14:00)
== END 2018-03-25 14:00 | disposition home or self-care (01) ==
LOC: ER 12:44
DX: G89.29 Other chronic pain (principal); M54.2 Cervicalgia; M54.6 Pain in thoracic spine; M19.90 Unspecified osteoarthritis, unspecified site; M79.7 Fibromyalgia; J45.909 Unspecified asthma, uncomplicated; I50.9 Heart failure, unspecified; K21.9 Gastro-esophageal reflux disease without esophagitis; E78.00 Pure hypercholesterolemia, unspecified; G43.909 Migraine, unspecified, not intractable, without status migrainosus; Z86.73 Personal history of transient ischemic attack (TIA), and cerebral infarction without residual deficits; Z90.49 Acquired absence of other specified parts of digestive tract; Z88.8 Allergy status to other drugs, medicaments and biological substances; Z91.041 Radiographic dye allergy status; Z88.1 Allergy status to other antibiotic agents; Z91.018 Allergy to other foods
CPT/HCPCS: 99282

== ENCOUNTER 2018-05-12 10:57 | Emergency (ER) | payer MEDICARE ==
[~2018-05-12] VITALS: Ht 176.5 cm; Wt 123.8 kg
[~2018-05-12 10:57] MED LIST changes: +LIDO700A39 TP
[2018-05-12] MEDS ORDERED: HYDROcodone/APAP 5/325MG 1 TAB TABLET PO ONE (11:30)
[2018-05-12] MEDS ORDERED: MUPI15CR TP (12:47)
[2018-05-12] MEDS ORDERED: DICL50TA4 PO (12:47)
--- NOTE | 2018-05-12 12:47 | PHYS DOC ---
Past Medical History Past Medical History: Arthritis, Asthma, CHF, CVA, Fibromyalgia, GERD, High Cholesterol, Migraines, Other Additional Past Medical Histor: TACHYCARDIA, E COLI, HYDRONEPHROSIS, cellulitis , INTERSTITIAL CYSTITIS Past Surgical History: Cholecystectomy, Other Additional Past Surgical Histo: LAP BAND 2004, OK EN Y 2013, BREAST REDUCT, R TOE ORTHO, GASTRIC BYPASS Alcohol Use: None Drug Use: None Adult General Chief Complaint Chief Complaint: CELLULITIS HPI HPI Patient is a 43 year old female with a history of chronic cellulitis and swelling to bilateral lower extremity who presents today complaining of increased swelling and redness. Upon further conversation with the patient, she states she was already seen by the PCP, was started on cephalexin. This patient is well known to this ED. Typically follows up with the wound clinic, she states she has not been to the wound clinic for a while. Patient denies any fever. Review of Systems Review of Systems Constitutional: Denies fever or chills [] Eyes: Denies change in visual acuity, redness, or eye pain [] HENT: Denies nasal congestion or sore throat [] Respiratory: Denies cough or shortness of breath [] Cardiovascular: No additional information not addressed in HPI [] GI: Denies abdominal pain, nausea, vomiting, bloody stools or diarrhea [] : Denies dysuria or hematuria [] Musculoskeletal: Reports bilateral lower extremity swelling with redness, chronic Integument: Denies rash or skin lesions [] Neurologic: Denies headache, focal weakness or sensory changes [] All other systems were reviewed and found to be within normal limits, except as documented in this note. Current Medications Current Medications Current Medications Medications (Trade) Dose Ordered Sig/Sunil Start Time Stop Time Status Last Admin Dose Admin Acetaminophen/ Hydrocodone Bitart (Lortab 5/325) 1 tab 1X ONCE 05/12/18 11:30 05/12/18 11:31 DC 05/12/18 12:08 1 TAB Allergies Allergies Allergies Coded Allergies Type Severity Reaction Last Updated Verified adhesive tape Allergy Intermediate SKIN SENSITIVITY 02/09/18 Yes aspartame Allergy Intermediate 02/09/18 Yes erythromycin base Allergy Intermediate 02/09/18 Yes jannie Allergy Intermediate Rash 02/09/18 Yes tetracycline Allergy Intermediate 02/09/18 Yes walnut Allergy Intermediate 02/09/18 Yes I S O L A T I O N *CONTACT* Allergy Unknown 02/09/18 Yes Physical Exam Physical Exam Constitutional: Well developed, well nourished, no acute distress, non-toxic appearance. [] HENT: Normocephalic, atraumatic, bilateral external ears normal, oropharynx moist, no oral exudates, nose normal. [] Eyes: PERRLA, EOMI, conjunctiva normal, no discharge. [] Neck: Normal range of motion, no tenderness, supple, no stridor. [] Cardiovascular:Heart rate regular rhythm, no murmur [] Lungs & Thorax: Bilateral breath sounds clear to auscultation [] Abdomen: Bowel sounds normal, soft, no tenderness, no masses, no pulsatile masses. [] Skin: Warm, dry, no erythema, no rash. [] Back: No tenderness, no CVA tenderness. [] Extremities: Chronic bilateral lower extremity +2 edema, his multiple open non- weeping wounds noted on the lower extremities, they're all chronic. +2 bilateral pedal pulses. There is trace cellulitis to the lower extremities- chronic. Neurologic: Alert and oriented X 3, normal motor function, normal sensory function, no focal deficits noted. [] Psychologic: Affect normal, judgement normal, mood normal. [] Current Patient Data Vital Signs Vital Signs Date Time Temp Pulse Resp B/P (MAP) Pulse Ox O2 Delivery O2 Flow Rate FiO2 05/12/18 12:08 16 94 Room Air 05/12/18 11:07 98.7 98 127/58 (81) 98.7 EKG EKG [] Radiology/Procedures Radiology/Procedures [] Course & Med Decision Making Course & Med Decision Making Pertinent Labs and Imaging studies reviewed. (See chart for details) This is a 43-year-old female patient presented to the ED today with chronic cellulitis to bilateral lower extremities. Patient is well known to this ED for chronic cellulitis. She just completed cephalexin,given a prescription for Bactroban. Tetanus up-to-date. Patient usually follows up with the wound clinic but has not been there for long time. She was encouraged to follow up in the course of this week or next week. She was provided prescription for diclofenac for pain. K tracks shows she filled a prescription for oxycodone 10/325 60 tablets around 04/21/2018 30 day supply. Encouraged to elevate bilateral lower extremities. Dragon Disclaimer Dragon Disclaimer This electronic medical record was generated, in whole or in part, using a voice recognition dictation system. Departure Departure Impression: Primary Impression: Chronic cellulitis Disposition: 01 HOME, SELF-CARE Condition: STABLE Referrals: VIKTORIA ALBERT (PCP) Follow-up with the [facility] wound clinic as well as your doctor Patient Instructions: Cellulitis, [id number] Additional Instructions: You have chronic cellulitis please follow-up with the [facility] wound clinic as well as your primary care doctor. Try to elevate the extremities. Scripts Mupirocin Calcium (BACTROBAN CREAM) 15 Gm Cream..g. 1 QUYNH TP TID, #30 GM Prov: NIKITA CHAVEZ APRN 05/12/18 Diclofenac Sodium (DICLOFENAC SODIUM) 50 Mg Tablet. 1 TAB PO BID, #20 TAB 0 Refills Prov: NIKITA CHAVEZ APRN 05/12/18 NIKITA CHAVEZ APRN May 12, 2018 12:47
[2018-05-12 12:51] VITALS: BP 140/61
== END 2018-05-12 12:55 | disposition home or self-care (01) ==
LOC: ER 10:57
DX: L03.116 Cellulitis of left lower limb (principal); L03.115 Cellulitis of right lower limb; E78.00 Pure hypercholesterolemia, unspecified; K21.9 Gastro-esophageal reflux disease without esophagitis; G43.909 Migraine, unspecified, not intractable, without status migrainosus; J45.909 Unspecified asthma, uncomplicated; Z86.79 Personal history of other diseases of the circulatory system; Z88.1 Allergy status to other antibiotic agents; Z91.041 Radiographic dye allergy status; Z88.8 Allergy status to other drugs, medicaments and biological substances; Z91.018 Allergy to other foods
CPT/HCPCS: 99283

== ENCOUNTER → 2018-05-14 | Outpatient (CLI) | payer MEDICARE ==
[2018-05-12 12:51] VITALS: BP 140/61
[~2018-05-14] MED LIST changes: +FLUC150T PO; +MORP15TA PO; +MUPI15CR TP; +OXYC-411 PO
== END | disposition home or self-care (01) ==
LOC: PMGWOUND 08:57
PROVIDERS: ATTEND Emergency Medicine Undersea and Hyperbaric Medicine
DX: L97.221 Non-pressure chronic ulcer of left calf limited to breakdown of skin (principal); L97.211 Non-pressure chronic ulcer of right calf limited to breakdown of skin; I50.9 Heart failure, unspecified; M79.7 Fibromyalgia; G89.29 Other chronic pain; M54.9 Dorsalgia, unspecified; E78.00 Pure hypercholesterolemia, unspecified; F41.9 Anxiety disorder, unspecified; J45.909 Unspecified asthma, uncomplicated; K58.9 Irritable bowel syndrome, unspecified; I89.0 Lymphedema, not elsewhere classified; M19.90 Unspecified osteoarthritis, unspecified site; I87.2 Venous insufficiency (chronic) (peripheral); K21.9 Gastro-esophageal reflux disease without esophagitis; F32.9 Major depressive disorder, single episode, unspecified; G43.909 Migraine, unspecified, not intractable, without status migrainosus; Z91.041 Radiographic dye allergy status; Z87.891 Personal history of nicotine dependence; Z88.1 Allergy status to other antibiotic agents; Z90.49 Acquired absence of other specified parts of digestive tract; Z88.8 Allergy status to other drugs, medicaments and biological substances; Z86.73 Personal history of transient ischemic attack (TIA), and cerebral infarction without residual deficits
CPT/HCPCS: 99214; G0463

== ENCOUNTER → 2018-05-28 | Outpatient (CLI) | payer MEDICARE ==
[2018-05-12 12:51] VITALS: BP 140/61
== END | disposition home or self-care (01) ==
LOC: PMGWOUND 09:06
PROVIDERS: ATTEND Emergency Medicine Undersea and Hyperbaric Medicine
DX: L97.221 Non-pressure chronic ulcer of left calf limited to breakdown of skin (principal); L97.211 Non-pressure chronic ulcer of right calf limited to breakdown of skin; I87.2 Venous insufficiency (chronic) (peripheral); I89.0 Lymphedema, not elsewhere classified; M79.7 Fibromyalgia; G89.29 Other chronic pain; M54.9 Dorsalgia, unspecified; K21.9 Gastro-esophageal reflux disease without esophagitis; J45.909 Unspecified asthma, uncomplicated; I50.9 Heart failure, unspecified; M19.90 Unspecified osteoarthritis, unspecified site; G43.909 Migraine, unspecified, not intractable, without status migrainosus; F41.9 Anxiety disorder, unspecified; Z86.73 Personal history of transient ischemic attack (TIA), and cerebral infarction without residual deficits; E78.00 Pure hypercholesterolemia, unspecified; Z91.041 Radiographic dye allergy status; Z87.891 Personal history of nicotine dependence; Z90.49 Acquired absence of other specified parts of digestive tract; Z88.1 Allergy status to other antibiotic agents; Z88.8 Allergy status to other drugs, medicaments and biological substances
CPT/HCPCS: 99215; G0463

== ENCOUNTER 2018-07-05 18:14 | Emergency (ER) | payer MEDICARE ==
[~2018-07-05] VITALS: Ht 177.8 cm; Wt 124.3 kg
[~2018-07-05 18:14] MED LIST changes: -FLUC150T PO; -MORP15TA PO; -OXYC-411 PO
[2018-07-05 18:30] VITALS: BP 133/92
--- NOTE | 2018-07-05 18:40 | PHYS DOC ---
Past Medical History Past Medical History: Arthritis, Asthma, CHF, CVA, Fibromyalgia, GERD, High Cholesterol, Migraines, Other Additional Past Medical Histor: TACHYCARDIA, E COLI, HYDRONEPHROSIS, cell ulitis, INTERSTITIAL CYSTITIS Past Surgical History: Cholecystectomy, Other Additional Past Surgical Histo: LAP BAND 2004, OK EN Y 2013, BREAST REDUCT, R TOE ORTHO, GASTRIC BYPASS Alcohol Use: None Drug Use: None Adult General Chief Complaint Chief Complaint: CELLULITIS HPI HPI Patient is a 43 year old F who presents with bilateral lower extremity cellulitis. She states that this has been going on for about 15 days. She was given clindamycin from an urgent care which gave her diarrhea so she stopped taking it. She has had cellulitis in the past numerous times. She states that she is usually given Levaquin or Bactrim which help. She also has a complaint of tooth pain on right. She reports that part of her premolar broke off and since then the right side of her face has been hot and swollen. She denies any fever or chills since these episodes began. According to Wilian she has prescriptions filled on 06/15 for #60 10/325 Percocet and #60 ER Morphine 30mg Review of Systems Review of Systems Constitutional: Denies fever or chills [] Eyes: Denies change in visual acuity, redness, or eye pain [] HENT: Denies nasal congestion or sore throat [] Respiratory: Denies cough or shortness of breath [] Cardiovascular: No additional information not addressed in HPI [] GI: Denies abdominal pain, nausea, vomiting, bloody stools or diarrhea [] : Denies dysuria or hematuria [] Musculoskeletal: Denies back pain or joint pain [] Integument: Reports redness and swelling of bilateral lower extremities [] Neurologic: Denies headache, focal weakness or sensory changes [] Endocrine: Denies polyuria or polydipsia [] All other systems were reviewed and found to be within normal limits, except as documented in this note. Allergies Allergies Allergies Coded Allergies Type Severity Reaction Last Updated Verified adhesive tape Allergy Intermediate SKIN SENSITIVITY 02/09/18 Yes aspartame Allergy Intermediate 02/09/18 Yes erythromycin base Allergy Intermediate 02/09/18 Yes jannie Allergy Intermediate Rash 02/09/18 Yes tetracycline Allergy Intermediate 02/09/18 Yes walnut Allergy Intermediate 02/09/18 Yes I S O L A T I O N *CONTACT* Allergy Unknown 02/09/18 Yes Physical Exam Physical Exam Constitutional: Well developed, well nourished, no acute distress, non-toxic appearance. [] HENT: Normocephalic, atraumatic, bilateral external ears normal, oropharynx moist, no oral exudates, nose normal. []There is a broken tooth but no obvious facial cellulitis Eyes: PERRLA, EOMI, conjunctiva normal, no discharge. [] Neck: Normal range of motion, no tenderness, supple, no stridor. [] Pulmonary: Normal respiratory effort no increased work of breathing no obvious chest wall trauma Abdomen: Bowel sounds normal, soft, no tenderness, no masses, no pulsatile masses. [] Skin: Erythema bilateral anterior shins with warmth no fluctuance noted. Pedal pulses are intact Extremities: Edema, redness, and tenderness in bilateral lower extremities [] Neurologic: Alert and oriented X 3, normal motor function, normal sensory function, no focal deficits noted. [] Psychologic: Affect normal, judgement normal, mood normal. [] Current Patient Data Vital Signs Vital Signs Date Time Temp Pulse Resp B/P (MAP) Pulse Ox O2 Delivery O2 Flow Rate FiO2 07/05/18 18:30 98.7 89 18 133/92 (106) 95 Room Air 98.7 EKG EKG [] Radiology/Procedures Radiology/Procedures [] Course & Med Decision Making Course & Med Decision Making Pertinent Labs and Imaging studies reviewed. (See chart for details) []Chronic cellulitis acute worsening antibiotic prescription given patient was advised no new narcotic prescriptions due to K tracks review as noted above Dragon Disclaimer Dragon Disclaimer This electronic medical record was generated, in whole or in part, using a voice recognition dictation system. Departure Departure Impression: Primary Impression: Cellulitis Disposition: HOME, SELF-CARE Condition: STABLE Referrals: VIKTORIA ALBERT (PCP) Scripts Fluconazole (DIFLUCAN) 150 Mg Tablet 1 TAB PO ONCE, #1 TAB 1 Refill Prov: ALEJANDRA CUEVAS MD 07/05/18 Cephalexin (CEPHALEXIN) 500 Mg Capsule 1 CAP PO QID, #40 CAP Prov: ALEJANDRA CUEVAS MD 07/05/18 Sulfamethoxazole/Trimethoprim (BACTRIM DS TABLET) 1 Each Tablet 1 TAB PO BID, #20 TAB Prov: ALEJANDRA CUEVAS MD 07/05/18 ALEJANDRA CUEVAS MD July 05, 2018 18:40
[2018-07-05] MEDS ORDERED: CEPH500C PO (19:15)
[2018-07-05] MEDS ORDERED: SULF1TAB24 PO (19:15)
[2018-07-05] MEDS ORDERED: FLUC150T PO (19:41)
== END 2018-07-05 19:51 | disposition home or self-care (01) ==
LOC: ER 18:14
DX: L03.116 Cellulitis of left lower limb (principal); L03.115 Cellulitis of right lower limb; R19.7 Diarrhea, unspecified; K08.89 Other specified disorders of teeth and supporting structures; G43.909 Migraine, unspecified, not intractable, without status migrainosus; E78.00 Pure hypercholesterolemia, unspecified; K21.9 Gastro-esophageal reflux disease without esophagitis; Z86.73 Personal history of transient ischemic attack (TIA), and cerebral infarction without residual deficits; J45.909 Unspecified asthma, uncomplicated; Z86.79 Personal history of other diseases of the circulatory system; Z88.1 Allergy status to other antibiotic agents; Z88.8 Allergy status to other drugs, medicaments and biological substances; Z91.041 Radiographic dye allergy status; Z91.018 Allergy to other foods
CPT/HCPCS: 99283

== ENCOUNTER 2018-07-10 13:36 | Inpatient (IN) | payer MEDICARE ==
[~2018-07-10] VITALS: Ht 177.8 cm; Wt 132.2 kg
[~2018-07-10 13:36] MED LIST changes: +FLUC150T PO
[2018-07-10] MEDS ORDERED: IPRATRPIUM/ALBUTEROL 0.5/2.5MG 3 ML NEBU. NEB ONE (14:00)
--- NOTE | 2018-07-10 14:05 | EKG ---
[facility] [address] [place] [address] Test Date: 2018-07-10 Test Time: 13:59:32 Pat Name: KOFI DRISCOLL Department: Room: Gender: F Indirect Sales Exec: : 1975 Requested By: JOVANA SANDOVAL Order Number: [id number] Reading MD: Fabrizio Vazquez MD Measurements Intervals Stella Rate: 107 P: 12 KS: 138 QRS: -12 QRSD: 102 T: 67 QT: 354 QTc: 478 Interpretive Statements SINUS TACHYCARDIA NON-SPECIFIC ST/T CHANGES Electronically Signed On 08-06-2018 14:38:31 CDT by Fabrizio Vazquez MD
[2018-07-10 14:27] LABS: BASO % 0 % (0-3); EOS # 0.5 x10^3/uL (0.0-0.7); EOS % 4 % (0-3); HEMATOCRIT 26.9 % (36.0-47.0); HEMOGLOBIN 8.4 g/dL (12.0-15.5); LYMPH # 1.6 x10^3/uL (1.0-4.8); LYMPH % 14 % (24-48); MEAN CORPUSCULAR HEMOGLOBIN 30 pg (25-35); MEAN CORPUSCULAR HGB CONC 31 g/dL (31-37); MEAN CORPUSCULAR VOLUME 96 fL (79-100); MONO # 0.7 x10^3/uL (0.0-1.1); MONO % 7 % (0-9); NEUT # 8.6 x10^3uL (1.8-7.7); NEUT % 75 % (31-73); PLATELET COUNT 197 x10^3/uL (140-400); RED BLOOD COUNT 2.81 x10^6/uL (3.50-5.40); RED CELL DISTRIBUTION WIDTH 15.4 % (11.5-14.5); WHITE BLOOD COUNT 11.4 x10^3/uL (4.0-11.0)
--- NOTE | 2018-07-10 14:38 | RAD ---
CHEST AP ONLY Clinical Indication: Shortness of breath Comparison: 11/05/2017 portable chest x-ray exam. Findings: The cardiomediastinal silhouette is normal. Ill-defined bilateral perihilar infiltrates are present greater on the left. Pulmonary vasculature is congested. There is no pneumothorax. No pleural effusion is appreciated. No acute bone abnormality. IMPRESSION: Bilateral perihilar interstitial infiltrates greater on the left. Mild pulmonary vasculature congestion. Follow-up to resolution recommended. Electronically signed by: Todd Landry MD (07/10/2018 2:35 PM) [id number]
[2018-07-10 14:52] LABS: ALBUMIN 2.7 g/dL (3.4-5.0); CALCIUM 8.4 mg/dL (8.5-10.1); CREATININE 1.1 mg/dL (0.6-1.0); DIRECT BILIRUBIN 0.5 mg/dL (0.0-0.2); GFR 53.7; TOTAL BILIRUBIN 1.2 mg/dL (0.2-1.0); TOTAL PROTEIN 6.2 g/dL (6.4-8.2)
[2018-07-10 14:58] LABS: POTASSIUM 2.7 mmol/L (3.5-5.1)
[2018-07-10] MEDS ORDERED: IV NORMAL SALINE 1000ML BAG 1,000 ML IV SCH (15:13)
[2018-07-10] MEDS ORDERED: cefTRIAXone IV Push 1 GM VIAL. IVP ONE (15:15)
[2018-07-10] MEDS ORDERED: PIP/TAZO PER PHARMACY MC PRN (15:15)
[2018-07-10] MEDS ORDERED: POTASSIUM CHLORIDE 20 MEQ TABLET.ER. PO ONE (15:30)
[2018-07-10] MEDS ORDERED: PIPERACILLIN/TAZOBACTAM 3.375 GM in IV NORMAL SALINE 50ML 50 ML IV ONE (15:30)
--- NOTE | 2018-07-10 16:30 | PHYS DOC ---
Past Medical History Past Medical History: Arthritis, Asthma, CHF, CVA, Fibromyalgia, GERD, High Cholesterol, Migraines, Other Additional Past Medical Histor: TACHYCARDIA, E COLI, HYDRONEPHROSIS, cellulitis, INTERSTITIAL CYSTITIS Past Surgical History: Cholecystectomy, Other Additional Past Surgical Histo: LAP BAND 2004, OK EN Y 2013, BREAST REDUCT, R TOE ORTHO, GASTRIC BYPASS Alcohol Use: None Drug Use: None Adult General Chief Complaint Chief Complaint: SHORTNESS OF BREATH HPI HPI 43-year-old female presenting to the emergency department today with shortness of breath for approximately 2 days associated with nausea. Had a productive cough and has been diagnosed with pneumonia. Upon arrival the patient was hypoxic in the mid 80s and placed on 4 L nasal cannula. The cough is productive. She denies any pain. She feels generally weak which is worsened over the past few days. No alleviating factors. She did take antibiotics prescribed at the hospital she saw a few weeks ago which mildly improved her symptoms but now she is worse. Review of systems is negative for chest pain abdominal pain diaphoresis. Positive for shortness of breath. Negative for headache. All other review of systems is negative. All other review of systems is negative unless otherwise no urban in history of present illness. ED course: 43-year-old female presenting to the emergency department today with cough found to be hypoxic with bilateral pneumonia. She was given IV Zosyn here in the emergency room and admitted to the hospital for treatment. I spoke with Dr. Ventura who accepts her for admission. Basic bridge orders placed. She has an anemia of 8.4 baseline/last was 9. Mildly elevated white blood cell count. Potassium is quite low. We will give her oral potassium here in the emergency department. D-dimer was elevated however given the patient's critical presentation with bilateral pneumonia we have an alternative cause thus we'll initiate treatment with IV antibiotics. Review of Systems Review of Systems SEE ABOVE. Current Medications Current Medications Current Medications Medications (Trade) Dose Ordered Sig/Sunil Start Time Stop Time Status Last Admin Dose Admin Albuterol/ Ipratropium (Duoneb) 3 ml 1X ONCE 07/10/18 14:00 07/10/18 14:01 DC 07/10/18 14:21 3 ML Ceftriaxone Sodium (Rocephin) 1 gm 1X ONCE 07/10/18 15:15 07/10/18 15:17 DC Ondansetron HCl (Zofran) 4 mg PRN Q8HRS PRN 07/10/18 15:15 07/11/18 15:14 Piperacillin Sod/ Tazobactam Sod (Zosyn Per Pharmacy) 1 each PRN DAILY PRN 07/10/18 15:15 Sodium Chloride 1,000 ml @ 100 mls/hr Q10H 07/10/18 15:13 07/10/18 19:12 Allergies Allergies Allergies Coded Allergies Type Severity Reaction Last Updated Verified adhesive tape Allergy Intermediate SKIN SENSITIVITY 02/09/18 Yes aspartame Allergy Intermediate 02/09/18 Yes erythromycin base Allergy Intermediate 02/09/18 Yes jannie Allergy Intermediate Rash 02/09/18 Yes tetracycline Allergy Intermediate 02/09/18 Yes walnut Allergy Intermediate 02/09/18 Yes I S O L A T I O N *CONTACT* Allergy Unknown 02/09/18 Yes Physical Exam Physical Exam SEE ABOVE Constitutional: Well developed, well nourished, no acute distress, non-toxic appearance. HENT: Normocephalic, atraumatic, bilateral external ears normal, oropharynx moist, no oral exudates, nose normal. [] Eyes: PERRLA, EOMI, conjunctiva normal, no discharge. Neck: Normal range of motion, no tenderness, supple, no stridor. Cardiovascular:Heart rate regular rhythm, no murmur [] Lungs & Thorax: Mild wheezing on the left. Otherwise breathing comfortably. Abdomen: Bowel sounds normal, soft, no tenderness, no masses, no pulsatile masses. [] Skin: Warm, dry, no erythema, no rash. Back: No tenderness, no CVA tenderness. [] Extremities: No tenderness, no cyanosis, no clubbing, ROM intact, no edema. Neurologic: Alert and oriented X 3, normal motor function, normal sensory func tion, no focal deficits noted. [] Psychologic: Affect normal, judgement normal, mood normal. [] Current Patient Data Vital Signs Vital Signs Date Time Temp Pulse Resp B/P (MAP) Pulse Ox O2 Delivery O2 Flow Rate FiO2 07/10/18 14:50 108 111/54 (73) 95 Nasal Cannula 4.0 07/10/18 13:46 99.1 20 99.1 Lab Values Laboratory Tests Test 07/10/18 14:10 White Blood Count 11.4 x10^3/uL (4.0-11.0) H Red Blood Count 2.81 x10^6/uL (3.50-5.40) L Hemoglobin 8.4 g/dL (12.0-15.5) L Hematocrit 26.9 % (36.0-47.0) L Mean Corpuscular Volume 96 fL (79-100) Mean Corpuscular Hemoglobin 30 pg (25-35) Mean Corpuscular Hemoglobin Concent 31 g/dL (31-37) Red Cell Distribution Width 15.4 % (11.5-14.5) H Platelet Count 197 x10^3/uL (140-400) Neutrophils (%) (Auto) 75 % (31-73) H Lymphocytes (%) (Auto) 14 % (24-48) L Monocytes (%) (Auto) 7 % (0-9) Eosinophils (%) (Auto) 4 % (0-3) H Basophils (%) (Auto) 0 % (0-3) Neutrophils # (Auto) 8.6 x10^3uL (1.8-7.7) H Lymphocytes # (Auto) 1.6 x10^3/uL (1.0-4.8) Monocytes # (Auto) 0.7 x10^3/uL (0.0-1.1) Eosinophils # (Auto) 0.5 x10^3/uL (0.0-0.7) Basophils # (Auto) 0.0 x10^3/uL (0.0-0.2) D-Dimer (Terri) 0.53 ug/mlFEU (0.00-0.50) H Sodium Level 141 mmol/L (136-145) Potassium Level 2.7 mmol/L (3.5-5.1) *L Chloride Level 102 mmol/L (98-107) Carbon Dioxide Level 31 mmol/L (21-32) Anion Gap 8 (6-14) Blood Urea Nitrogen 15 mg/dL (7-20) Creatinine 1.1 mg/dL (0.6-1.0) H Estimated GFR (Cockcroft-Gault) 53.7 Glucose Level 110 mg/dL (70-99) H Calcium Level 8.4 mg/dL (8.5-10.1) L Total Bilirubin 1.2 mg/dL (0.2-1.0) H Direct Bilirubin 0.5 mg/dL (0.0-0.2) H Aspartate Amino Transferase (AST) 18 U/L (15-37) Alanine Aminotransferase (ALT) 17 U/L (14-59) Alkaline Phosphatase 148 U/L (46-116) H Troponin I Quantitative < 0.017 ng/mL (0.000-0.055) DU-Gow-D-Type Natriuretic Peptide 791 pg/mL (0-124) H Total Protein 6.2 g/dL (6.4-8.2) L Albumin 2.7 g/dL (3.4-5.0) L Lipase 45 U/L (73-393) L Laboratory Tests 07/10/18 14:10 Laboratory Tests 07/10/18 14:10 EKG EKG [] Radiology/Procedures Radiology/Procedures [] Course & Med Decision Making Course & Med Decision Making Pertinent Labs and Imaging studies reviewed. (See chart for details) [] Dragon Disclaimer Dragon Disclaimer This electronic medical record was generated, in whole or in part, using a voice recognition dictation system. Departure Departure Impression: Primary Impression: Bilateral pneumonia Additional Impression: Hypoxia Disposition: ADMITTED INPATIENT Admitting Physician: Joel Singer Condition: STABLE Referrals: VIKTORIA ALBERT (PCP) Problem Qualifiers JOVANA SANDOVAL MD July 10, 2018 16:30
--- NOTE | 2018-07-10 16:39 | PDOC1 ---
History and Physical Date of Admission Date of Admission DATE: 07/10/18 TIME: 16:39 Identification/Chief Complaint Chief Complaint SEEN IN emergency department with shortness of breath for approximately 2 days associated with nausea. Had a productive cough and has been diagnosed with pneumonia. Upon arrival the patient was hypoxic in the mid 80s and placed on 4 L nasal cannula. The cough is productive. She denies any pain. She feels generally weak which is worsened over the past few days. She did take antibiotics prescribed at the hospital she saw a few weeks ago which mildly improved her symptoms but now she is worse. Review of systems is negative for chest pain abdominal pain diaphoresis. Positive for shortness of breath. All other review of systems is negative. WORK UP today with cough found to be hypoxic with bilateral pneumonia. She was given IV Zosyn IN ER Past Medical History Past Medical History Past Medical History Past Medical History: Arthritis, Asthma, CHF, CVA, Fibromyalgia, GERD, High Cholesterol, Migraines, Other Additional Past Medical Histor: TACHYCARDIA, E COLI, HYDRONEPHROSIS, cellulitis, INTERSTITIAL CYSTITIS Past Surgical History: Cholecystectomy, Other Additional Past Surgical Histo: LAP BAND 2004, OK EN Y 2013, BREAST REDUCT, R TOE ORTHO, GASTRIC BYPASS Alcohol Use: None Drug Use: None family hx hyperlipidemia Cardiovascular: CHF, Hyperlipidemia Pulmonary: Asthma, Pneumonia, Other CENTRAL NERVOUS SYSTEM: CVA, Migraine GI: GERD, Irritable bowel disease Heme/Onc: Anemia NOS Hepatobiliary: No pertinent hx Psych: Anxiety, Bipolar, Depression, Other Musculoskeletal: low back pain, Osteoarthritis, Other Rheumatologic: Fibromyalgia Infectious disease: Other Renal/: Other Endocrine: Hypothyroidism, Other Past Surgical History Past Surgical History: Cholecystectomy, Hysterectomy, Other Family History Family History: Diabetes, Hypertension Social History Smoke: No ALCOHOL: none Drugs: None Current Problem List Problem List Problems Medical Problems: (1) Bilateral pneumonia Status: Acute (2) Hypoxia Status: Acute Current Medications Current Medications Current Medications Albuterol/ Ipratropium (Duoneb) 3 ml 1X ONCE NEB Last administered on 07/10at 14:21; Start 07/10/18 at 14:00; Stop 07/10/18 at 14:01; Status DC Ceftriaxone Sodium (Rocephin) 1 gm 1X ONCE IVP ; Start 07/10/18 at 15:15; Stop 07/10/18 at 15:17; Status DC Ondansetron HCl (Zofran) 4 mg PRN Q8HRS PRN IV NAUSEA/VOMITING; Start 07/10/18 at 15:15; Stop 07/11/18 at 15:14 Sodium Chloride 1,000 ml @ 100 mls/hr Q10H IV ; Start 07/10/18 at 15:13; Stop 07/10/18 at 19:12 Piperacillin Sod/ Tazobactam Sod (Zosyn Per Pharmacy) 1 each PRN DAILY PRN MC SEE COMMENTS; Start 07/10/18 at 15:15 Piperacillin Sod/ Tazobactam Sod 3.375 gm/Sodium Chloride 50 ml @ 100 mls/hr 1X ONCE IV Last administered on 07/10/18at 15:45; Start 07/10/18 at 15:30; Stop 07/10/18 at 15:59; Status DC Potassium Chloride (Klor-Con) 40 meq 1X ONCE PO Last administered on 07/10/18at 15:45; Start 07/10/18 at 15:30; Stop 07/10/18 at 15:31; Status DC Piperacillin Sod/ Tazobactam Sod 3.375 gm/Sodium Chloride 50 ml @ 100 mls/hr Q6HRS IV ; Start 07/11/18 at 00:00 Active Scripts Active Diflucan (Fluconazole) 150 Mg Tablet 1 Tab PO ONCE Cephalexin 500 Mg Capsule 1 Cap PO QID Bactrim Ds Tablet (Sulfamethoxazole/Trimethoprim) 1 Each Tablet 1 Tab PO BID Bactroban Cream (Mupirocin) 15 Gm Cream..g. 1 Devendra TP TID Diclofenac Sodium 50 Mg Tablet.dr 1 Tab PO BID Lidocaine 1 Each Adh..patch 1 Each TP Q12HR PRN Remove patch in 12 hours and reapply if needed. Aspirin 325 Mg Tablet 325 Mg PO DAILYWBKFT Reported Oxymorphone Hcl 30 Mg Tab.er.12h 30 Mg PO BID Zyrtec (Cetirizine Hcl) 10 Mg Tablet 10 Mg PO HS Saline Nasal [place] (Sodium Chloride) 30 Ml [place] 1 [place] NS BID Probiotic (L.acidoph & Paracasei,B.lactis) 1 Each Capsule 1 Each PO DAILY [place] Heartburn+Gas (Calcium Carbonate/Simethicone) 1 Each Tab.chew 2 Each PO PRN 3-4XDAILY PRN Colace (Docusate Sodium) 100 Mg Capsule 300 Mg PO HS Potassium Chloride 20 Meq Tablet.er 20 Meq PO TID Atorvastatin Calcium 40 Mg Tablet 1 Tab PO DAILY Ferrous Sulfate 325 Mg Tablet 1 Tab PO HS Buspirone Hcl 10 Mg Tablet 10 Mg PO TID Phenazopyridine Hcl 200 Mg Tablet 1 Tab PO TIDPC Lyrica (Pregabalin) 150 Mg Capsule 1 Cap PO TID Budesonide Nasal [place] (Budesonide) 8.6 Gm [place].pump 1 [place] NS BID Benadryl (Diphenhydramine Hcl) 25 Mg Capsule 3 Cap PO TID Melatonin 3 Mg Tablet 10 Mg PO HS Multivitamins (Multivitamin) 1 Each Tablet 1 Tab PO DAILY Proair Hfa Inhaler (Albuterol Sulfate) 8.5 Gm Hfa.aer.ad 1 Puff INH PRN Q6HRS PRN Olanzapine-Fluoxetine 12-25 Mg (Olanzapine/Fluoxetine Hcl) 1 Each Capsule 1 Each PO HS Furosemide 40 Mg Tablet 40 Mg PO BID Naproxen 500 Mg Tablet 1 Tab PO BID Amitriptyline Hcl 100 Mg Tablet 1-2 Tab PO QHS Tizanidine Hcl 4 Mg Tablet 1 Tab PO TID Prochlorperazine Maleate 10 Mg Tablet 1 Tab PO PRN TID PRN Levothyroxine Sodium 75 Mcg Tablet 75 Mcg PO DAILY06 Singulair Tablet (Montelukast Sodium) 10 Mg Tablet 10 Mg PO QHS Prevacid (Lansoprazole) 15 Mg Capsule.dr 15 Mg PO QHS Allergies Allergies: Coded Allergies: adhesive tape (Verified Allergy, Intermediate, SKIN SENSITIVITY, 02/09/18) aspartame (Verified Allergy, Intermediate, 02/09/18) migraines erythromycin base (Verified Allergy, Intermediate, 02/09/18) jannie (Verified Allergy, Intermediate, Rash, 02/09/18) tetracycline (Verified Allergy, Intermediate, 02/09/18) walnut (Verified Allergy, Intermediate, 02/09/18) I S O L A T I O N *CONTACT* (Verified Allergy, Unknown, 02/09/18) (R) E.coli/ESBL ROS Review of System 14 pt ros otherwise neg General: YES: Chills, Fatigue PSYCHOLOGICAL ROS: YES: Anxiety Eyes: No Blurry vision, No Decreased vision, No Double vision, No Dry eyes, No Excessive tearing, No Eye Pain, No Itchy Eyes, No Loss of vision, No Photophobia, No [place], No Uses contacts, No Uses glasses, No Other HEENT: YES: Heacaches, Nasal discharge ALLERGY AND IMMUNOLOGY: No: Hives, Insect Bite Sensitivity, Itchy/Watery Eyes, Nasal Congestion, Post Nasal Drip, Seasonal Allergies, Other Hematological and Lymphatic: No: Bleeding Problems, Blood Clots, Blood Transfusions, Brusing, Night Sweats, Pallor, Swollen Lymph Nodes, Other ENDOCRINE: No: Breast Changes, Galactorrhea, Hair Pattern Changes, Hot Flashes, Malaise/lethargy, Mood Swings, Palpitations, Polydipsia/polyuria, Skin Changes, Temperature Intolerance, Unexpected Weight Changes, Other Breast: No New/Changing Breast Lumps, No Nipple changes, No Nipple discharge, No Other Respiratory: YES: Cough, Shortness of breath, SOB with excertion Cardiovascular: yes Palpitations Gastrointestinal: No Nausea, No Vomiting, No Abdominal Pain, No Diarrhea, No Constipation, No Melena, No Hematochezia, No Other Genitourinary: No Dysuria, No Frequency, No Incontinence, No Hematuria, No Retention, No Discharge, No Urgency, No Pain, No Flank Pain, No Other, No , No , No , No , No , No , No Musculoskeletal: Yes Joint Stiffness Neurological: Yes Numbness/Tingling Skin: Yes Dry Skin Vitals Vitals Vital Signs Date Time Temp Pulse Resp B/P (MAP) Pulse Ox O2 Delivery O2 Flow Rate FiO2 07/10/18 15:20 94 107/54 (71) 96 Nasal Cannula 4.0 07/10/18 13:46 99.1 20 99.1 Labs Labs Laboratory Tests Test 07/10/18 14:10 White Blood Count 11.4 x10^3/uL (4.0-11.0) Red Blood Count 2.81 x10^6/uL (3.50-5.40) Hemoglobin 8.4 g/dL (12.0-15.5) Hematocrit 26.9 % (36.0-47.0) Mean Corpuscular Volume 96 fL (79-100) Mean Corpuscular Hemoglobin 30 pg (25-35) Mean Corpuscular Hemoglobin Concent 31 g/dL (31-37) Red Cell Distribution Width 15.4 % (11.5-14.5) Platelet Count 197 x10^3/uL (140-400) Neutrophils (%) (Auto) 75 % (31-73) Lymphocytes (%) (Auto) 14 % (24-48) Monocytes (%) (Auto) 7 % (0-9) Eosinophils (%) (Auto) 4 % (0-3) Basophils (%) (Auto) 0 % (0-3) Neutrophils # (Auto) 8.6 x10^3uL (1.8-7.7) Lymphocytes # (Auto) 1.6 x10^3/uL (1.0-4.8) Monocytes # (Auto) 0.7 x10^3/uL (0.0-1.1) Eosinophils # (Auto) 0.5 x10^3/uL (0.0-0.7) Basophils # (Auto) 0.0 x10^3/uL (0.0-0.2) D-Dimer (Terri) 0.53 ug/mlFEU (0.00-0.50) Sodium Level 141 mmol/L (136-145) Potassium Level 2.7 mmol/L (3.5-5.1) Chloride Level 102 mmol/L (98-107) Carbon Dioxide Level 31 mmol/L (21-32) Anion Gap 8 (6-14) Blood Urea Nitrogen 15 mg/dL (7-20) Creatinine 1.1 mg/dL (0.6-1.0) Estimated GFR (Cockcroft-Gault) 53.7 Glucose Level 110 mg/dL (70-99) Calcium Level 8.4 mg/dL (8.5-10.1) Total Bilirubin 1.2 mg/dL (0.2-1.0) Direct Bilirubin 0.5 mg/dL (0.0-0.2) Aspartate Amino Transf (AST/SGOT) 18 U/L (15-37) Alanine Aminotransferase (ALT/SGPT) 17 U/L (14-59) Alkaline Phosphatase 148 U/L (46-116) Troponin I Quantitative < 0.017 ng/mL (0.000-0.055) JI-Zdd-A-Type Natriuretic Peptide 791 pg/mL (0-124) Total Protein 6.2 g/dL (6.4-8.2) Albumin 2.7 g/dL (3.4-5.0) Lipase 45 U/L (73-393) Laboratory Tests Test 07/10/18 14:10 White Blood Count 11.4 x10^3/uL (4.0-11.0) Red Blood Count 2.81 x10^6/uL (3.50-5.40) Hemoglobin 8.4 g/dL (12.0-15.5) Hematocrit 26.9 % (36.0-47.0) Mean Corpuscular Volume 96 fL (79-100) Mean Corpuscular Hemoglobin 30 pg (25-35) Mean Corpuscular Hemoglobin Concent 31 g/dL (31-37) Red Cell Distribution Width 15.4 % (11.5-14.5) Platelet Count 197 x10^3/uL (140-400) Neutrophils (%) (Auto) 75 % (31-73) Lymphocytes (%) (Auto) 14 % (24-48) Monocytes (%) (Auto) 7 % (0-9) Eosinophils (%) (Auto) 4 % (0-3) Basophils (%) (Auto) 0 % (0-3) Neutrophils # (Auto) 8.6 x10^3uL (1.8-7.7) Lymphocytes # (Auto) 1.6 x10^3/uL (1.0-4.8) Monocytes # (Auto) 0.7 x10^3/uL (0.0-1.1) Eosinophils # (Auto) 0.5 x10^3/uL (0.0-0.7) Basophils # (Auto) 0.0 x10^3/uL (0.0-0.2) D-Dimer (Terri) 0.53 ug/mlFEU (0.00-0.50) Sodium Level 141 mmol/L (136-145) Potassium Level 2.7 mmol/L (3.5-5.1) Chloride Level 102 mmol/L (98-107) Carbon Dioxide Level 31 mmol/L (21-32) Anion Gap 8 (6-14) Blood Urea Nitrogen 15 mg/dL (7-20) Creatinine 1.1 mg/dL (0.6-1.0) Estimated GFR (Cockcroft-Gault) 53.7 Glucose Level 110 mg/dL (70-99) Calcium Level 8.4 mg/dL (8.5-10.1) Total Bilirubin 1.2 mg/dL (0.2-1.0) Direct Bilirubin 0.5 mg/dL (0.0-0.2) Aspartate Amino Transf (AST/SGOT) 18 U/L (15-37) Alanine Aminotransferase (ALT/SGPT) 17 U/L (14-59) Alkaline Phosphatase 148 U/L (46-116) Troponin I Quantitative < 0.017 ng/mL (0.000-0.055) RT-Cuw-E-Type Natriuretic Peptide 791 pg/mL (0-124) Total Protein 6.2 g/dL (6.4-8.2) Albumin 2.7 g/dL (3.4-5.0) Lipase 45 U/L (73-393) Images Images CHEST AP ONLY Clinical Indication: Shortness of breath Comparison: 11/05/2017 portable chest x-ray exam. Findings: The cardiomediastinal silhouette is normal. Ill-defined bilateral perihilar infiltrates are present greater on the left. Pulmonary vasculature is congested. There is no pneumothorax. No pleural effusion is appreciated. No acute bone abnormality. IMPRESSION: Bilateral perihilar interstitial infiltrates greater on the left. Mild pulmonary vasculature congestion. Follow-up to resolution recommended. Electronically signed by: Todd Johnson MD (07/10/2018 2:35 PM) [id number] DICTATED and SIGNED BY: TODD JOHNSON MD DATE: 07/10/18 1435 VTE Prophylaxis Ordered VTE Prophylaxis Devices: No VTE Pharmacological Prophylaxi: Yes Assessment/Plan Assessment/Plan IMPRESSION 1. Acute hypoxic resp failure 2. morbid obesity 3. Pneumonia 4. hx GERD 5. ANEMIA 6. Severe hypokalemia plan admit iv antibiotics o2 support blood cultures duonebs qid ID CONSULT 74 MIN PT EXAM, Chart review, > 50% of time spent with exam, chart review, pt care coordination XOCHITL MAGANA MD July 10, 2018 16:39
[2018-07-10] MEDS: SODIUM CHLORIDE 0.65% NASAL SPRAY 45ML BOTTLE. NS SCH ×2 (17:15→21:15)
[2018-07-10] MEDS ORDERED: CALCIUM CARBONATE 500 MG TAB.CHEW PO PRN (17:15)
[2018-07-10 17:26] VITALS: BP 108/70
--- NOTE | 2018-07-10 17:42 | PDOC ---
PULMONARY PROGRESS NOTES Vitals Vital Signs Date Time Temp Pulse Resp B/P (MAP) Pulse Ox O2 Delivery O2 Flow Rate FiO2 07/10/18 17:26 97.8 78 20 108/70 (83) 95 Nasal Cannula 4.0 97.8 General: Alert, No acute distress Lungs: Clear Cardiovascular: S1 Abdomen: Soft, Non-tender Extremities: No Edema Labs Laboratory Tests Test 07/10/18 14:10 White Blood Count 11.4 x10^3/uL (4.0-11.0) Red Blood Count 2.81 x10^6/uL (3.50-5.40) Hemoglobin 8.4 g/dL (12.0-15.5) Hematocrit 26.9 % (36.0-47.0) Mean Corpuscular Volume 96 fL (79-100) Mean Corpuscular Hemoglobin 30 pg (25-35) Mean Corpuscular Hemoglobin Concent 31 g/dL (31-37) Red Cell Distribution Width 15.4 % (11.5-14.5) Platelet Count 197 x10^3/uL (140-400) Neutrophils (%) (Auto) 75 % (31-73) Lymphocytes (%) (Auto) 14 % (24-48) Monocytes (%) (Auto) 7 % (0-9) Eosinophils (%) (Auto) 4 % (0-3) Basophils (%) (Auto) 0 % (0-3) Neutrophils # (Auto) 8.6 x10^3uL (1.8-7.7) Lymphocytes # (Auto) 1.6 x10^3/uL (1.0-4.8) Monocytes # (Auto) 0.7 x10^3/uL (0.0-1.1) Eosinophils # (Auto) 0.5 x10^3/uL (0.0-0.7) Basophils # (Auto) 0.0 x10^3/uL (0.0-0.2) D-Dimer (Terri) 0.53 ug/mlFEU (0.00-0.50) Sodium Level 141 mmol/L (136-145) Potassium Level 2.7 mmol/L (3.5-5.1) Chloride Level 102 mmol/L (98-107) Carbon Dioxide Level 31 mmol/L (21-32) Anion Gap 8 (6-14) Blood Urea Nitrogen 15 mg/dL (7-20) Creatinine 1.1 mg/dL (0.6-1.0) Estimated GFR (Cockcroft-Gault) 53.7 Glucose Level 110 mg/dL (70-99) Calcium Level 8.4 mg/dL (8.5-10.1) Total Bilirubin 1.2 mg/dL (0.2-1.0) Direct Bilirubin 0.5 mg/dL (0.0-0.2) Aspartate Amino Transf (AST/SGOT) 18 U/L (15-37) Alanine Aminotransferase (ALT/SGPT) 17 U/L (14-59) Alkaline Phosphatase 148 U/L (46-116) Troponin I Quantitative < 0.017 ng/mL (0.000-0.055) GH-Mom-K-Type Natriuretic Peptide 791 pg/mL (0-124) Total Protein 6.2 g/dL (6.4-8.2) Albumin 2.7 g/dL (3.4-5.0) Lipase 45 U/L (73-393) Laboratory Tests Test 07/10/18 14:10 White Blood Count 11.4 x10^3/uL (4.0-11.0) Red Blood Count 2.81 x10^6/uL (3.50-5.40) Hemoglobin 8.4 g/dL (12.0-15.5) Hematocrit 26.9 % (36.0-47.0) Mean Corpuscular Volume 96 fL (79-100) Mean Corpuscular Hemoglobin 30 pg (25-35) Mean Corpuscular Hemoglobin Concent 31 g/dL (31-37) Red Cell Distribution Width 15.4 % (11.5-14.5) Platelet Count 197 x10^3/uL (140-400) Neutrophils (%) (Auto) 75 % (31-73) Lymphocytes (%) (Auto) 14 % (24-48) Monocytes (%) (Auto) 7 % (0-9) Eosinophils (%) (Auto) 4 % (0-3) Basophils (%) (Auto) 0 % (0-3) Neutrophils # (Auto) 8.6 x10^3uL (1.8-7.7) Lymphocytes # (Auto) 1.6 x10^3/uL (1.0-4.8) Monocytes # (Auto) 0.7 x10^3/uL (0.0-1.1) Eosinophils # (Auto) 0.5 x10^3/uL (0.0-0.7) Basophils # (Auto) 0.0 x10^3/uL (0.0-0.2) D-Dimer (Terri) 0.53 ug/mlFEU (0.00-0.50) Sodium Level 141 mmol/L (136-145) Potassium Level 2.7 mmol/L (3.5-5.1) Chloride Level 102 mmol/L (98-107) Carbon Dioxide Level 31 mmol/L (21-32) Anion Gap 8 (6-14) Blood Urea Nitrogen 15 mg/dL (7-20) Creatinine 1.1 mg/dL (0.6-1.0) Estimated GFR (Cockcroft-Gault) 53.7 Glucose Level 110 mg/dL (70-99) Calcium Level 8.4 mg/dL (8.5-10.1) Total Bilirubin 1.2 mg/dL (0.2-1.0) Direct Bilirubin 0.5 mg/dL (0.0-0.2) Aspartate Amino Transf (AST/SGOT) 18 U/L (15-37) Alanine Aminotransferase (ALT/SGPT) 17 U/L (14-59) Alkaline Phosphatase 148 U/L (46-116) Troponin I Quantitative < 0.017 ng/mL (0.000-0.055) MO-Ecf-I-Type Natriuretic Peptide 791 pg/mL (0-124) Total Protein 6.2 g/dL (6.4-8.2) Albumin 2.7 g/dL (3.4-5.0) Lipase 45 U/L (73-393) Medications Active Scripts Medications Dose Route/Sig Max Daily Dose Days Date Category Dose Instructions Diflucan (Fluconazole) 150 Mg Tablet 1 Tab PO ONCE 07/05/18 Rx Cephalexin 500 Mg Capsule 1 Cap PO QID 07/05/18 Rx Bactrim Ds Tablet (Sulfamethoxazole/Trimethoprim) 1 Each Tablet 1 Tab PO BID 07/05/18 Rx Bactroban Cream (Mupirocin) 15 Gm Cream..g. 1 Devendra TP TID 05/12/18 Rx Diclofenac Sodium 50 Mg Tablet.dr 1 Tab PO BID 05/12/18 Rx Lidocaine 1 Each Adh..patch 1 Each TP Q12HR PRN 03/25/18 Rx Remove patch in 12 hours and reapply if needed. Oxymorphone Hcl 30 Mg Tab.er.12h 30 Mg PO BID 11/05/17 Reported Zyrtec (Cetirizine Hcl) 10 Mg Tablet 10 Mg PO HS 11/05/17 Reported Saline Nasal [place] (Sodium Chloride) 30 Ml [place] 1 [place] NS BID 11/05/17 Reported Probiotic (L.acidoph & Paracasei,B.lactis) 1 Each Capsule 1 Each PO DAILY 11/05/17 Reported Rosa-[place] Heartburn+Gas (Calcium Carbonate/Simethicone) 1 Each Tab.chew 2 Each PO PRN 3-4XDAILY PRN 11/05/17 Reported Colace (Docusate Sodium) 100 Mg Capsule 300 Mg PO HS 11/05/17 Reported Potassium Chloride 20 Meq Tablet.er 20 Meq PO TID 11/05/17 Reported Atorvastatin Calcium 40 Mg Tablet 1 Tab PO DAILY 11/05/17 Reported Ferrous Sulfate 325 Mg Tablet 1 Tab PO HS 11/05/17 Reported Buspirone Hcl 10 Mg Tablet 10 Mg PO TID 03/26/17 Reported Phenazopyridine Hcl 200 Mg Tablet 1 Tab PO TIDPC 01/03/17 Reported Lyrica (Pregabalin) 150 Mg Capsule 1 Cap PO TID 10/29/16 Reported Budesonide Nasal [place] (Budesonide) 8.6 Gm [place].pump 1 [place] NS BID 10/28/16 Reported Benadryl (Diphenhydramine Hcl) 25 Mg Capsule 3 Cap PO TID 10/28/16 Reported Melatonin 3 Mg Tablet 10 Mg PO HS 10/28/16 Reported Multivitamins (Multivitamin) 1 Each Tablet 1 Tab PO DAILY 10/28/16 Reported Proair Hfa Inhaler (Albuterol Sulfate) 8.5 Gm Hfa.aer.ad 1 Puff INH PRN Q6HRS PRN 01/29/16 Reported Olanzapine-Fluoxetine 12-25 Mg (Olanzapine/Fluoxetine Hcl) 1 Each Capsule 1 Each PO HS 01/29/16 Reported Furosemide 40 Mg Tablet 40 Mg PO BID 01/29/16 Reported Aspirin 325 Mg Tablet 325 Mg PO DAILYWBKFT 07/11/15 Rx Naproxen 500 Mg Tablet 1 Tab PO BID 07/01/15 Reported Amitriptyline Hcl 100 Mg Tablet 1-2 Tab PO QHS 07/01/15 Reported Tizanidine Hcl 4 Mg Tablet 1 Tab PO TID 07/01/15 Reported Prochlorperazine Maleate 10 Mg Tablet 1 Tab PO PRN TID PRN 07/01/15 Reported Levothyroxine Sodium 75 Mcg Tablet 75 Mcg PO DAILY06 03/22/13 Reported Singulair Tablet (Montelukast Sodium) 10 Mg Tablet 10 Mg PO QHS 03/22/13 Reported Prevacid (Lansoprazole) 15 Mg Capsule.dr 15 Mg PO QHS 03/22/13 Reported Impression . FULL NOTE DICTATED PNEUMONIA ACUTE CHF SEE ORDERS THANKS TRICIA GARCIA MD July 10, 2018 17:42
[2018-07-10] MEDS: POTASSIUM CHLORIDE 20 MEQ TABLET.ER. PO SCH (17:51)
[2018-07-10 19:00] VITALS: BP 105/63
[2018-07-10] MEDS ORDERED: MORP15TA PO (19:16)
[2018-07-10] MEDS ORDERED: MORPHINE ER 15 MG TABLET.ER PO SCH (20:00)
[2018-07-10] MEDS ORDERED: OXYC-411 PO (20:45)
[2018-07-10] MEDS ORDERED: MORP30TA3 PO (20:45)
[2018-07-10] MEDS ORDERED: OLANZapine 5 MG TABLET PO SCH (21:00)
[2018-07-10] MEDS ORDERED: NON FORMULARY ITEM (Melatonin 10 MG) PO SCH (21:00)
[2018-07-10] MEDS ORDERED: oxyCODONE/APAP 10/325 1 TAB TABLET PO SCH (21:00)
[2018-07-10] MEDS ORDERED: LIDOCAINE (700MG/PATCH) PATCH. TD PRN (21:00)
[2018-07-10] MEDS: DOCUSATE SODIUM 100 MG CAPSULE. PO SCH (21:15)
[2018-07-10] MEDS: FERROUS SULFATE 325 MG TABLET. PO SCH (21:16)
[2018-07-10] MEDS: CETIRIZINE HCL 10 MG TABLET. PO SCH (21:16)
[2018-07-10] MEDS: ATORVASTATIN CALCIUM 40 MG TABLET. PO SCH (21:16)
[2018-07-10] MEDS: MORPHINE ER 15 MG TABLET.ER PO SCH (21:17)
[2018-07-10] MEDS: busPIRone 10 MG TABLET. PO SCH (21:18)
[2018-07-10] MEDS: MONTELUKAST SODIUM 10 MG TABLET. PO SCH (21:18)
[2018-07-10] MEDS: AMITRIPTYLINE HCL 25 MG TABLET. PO SCH (21:19)
[2018-07-10] MEDS: PANTOPRAZOLE 40 MG TABLET.DR. PO SCH (21:19)
[2018-07-10] MEDS: PREGABALIN 75 MG CAPSULE PO SCH (21:19)
[2018-07-10] MEDS: methylPREDNISolone SOD SUCC PF 125 MG/2 ML VIAL. IV SCH (21:21)
[2018-07-10] MEDS: MUPIROCIN 2 % TOPICAL CREAM 30GM TUBE. TP SCH (21:21)
[2018-07-10] MEDS: ENOXAPARIN 40 MG/0.4 ML SYRINGE. SQ SCH (21:21)
[2018-07-10] MEDS: ONDANSETRON PF 4 MG/2 ML VIAL. IV PRN (21:25)
[2018-07-10] MEDS: OLANZAPINE PO SCH (22:07)
[2018-07-10] MEDS: FLUOXETINE PO SCH (22:07)
[2018-07-10] MEDS: ALBUTEROL SULFATE 2.5 MG/3 ML NEBU. INH PRN (22:19)
[2018-07-10 23:00] VITALS: BP 112/64
[2018-07-11] MEDS: PIPERACILLIN/TAZOBACTAM 3.375 GM in IV NORMAL SALINE 50ML 50 ML IV SCH ×4 (01:20→17:01)
[2018-07-11 03:00] VITALS: BP 130/77
[2018-07-11 05:08] LABS: BASO % 0 % (0-3); EOS % 0 % (0-3); HEMATOCRIT 27.9 % (36.0-47.0); HEMOGLOBIN 8.7 g/dL (12.0-15.5); LYMPH # 0.5 x10^3/uL (1.0-4.8); LYMPH % 4 % (24-48); MEAN CORPUSCULAR HEMOGLOBIN 30 pg (25-35); MEAN CORPUSCULAR HGB CONC 31 g/dL (31-37); MEAN CORPUSCULAR VOLUME 97 fL (79-100); MONO # 0.3 x10^3/uL (0.0-1.1); MONO % 3 % (0-9); NEUT # 9.6 x10^3uL (1.8-7.7); NEUT % 93 % (31-73); PLATELET COUNT 203 x10^3/uL (140-400); RED BLOOD COUNT 2.89 x10^6/uL (3.50-5.40); RED CELL DISTRIBUTION WIDTH 15.5 % (11.5-14.5); WHITE BLOOD COUNT 10.4 x10^3/uL (4.0-11.0)
[2018-07-11 05:29] LABS: CALCIUM 8.6 mg/dL (8.5-10.1); CREATININE 1.1 mg/dL (0.6-1.0); GFR 53.7; POTASSIUM 3.4 mmol/L (3.5-5.1)
[2018-07-11] MEDS: methylPREDNISolone SOD SUCC PF 125 MG/2 ML VIAL. IV SCH ×3 (06:13→22:00)
--- NOTE | 2018-07-11 06:18 | CONS ---
DATE OF CONSULTATION: 07/10/2018 REASON FOR CONSULTATION: The patient seen in pulmonary consultation at the request of Dr. Ventura for abnormal x-ray. HISTORY OF PRESENT ILLNESS: The patient is a 43-year-old that was recently treated as an outpatient with antibiotics and steroids, failed outpatient treatment. She presented with increasing shortness of breath, some abdominal discomfort. I was asked to see her in consultation for further evaluation and management. She has been more short of breath for the last couple of days associated with some nausea. She had CLINDAMYCIN, which caused some diarrhea. She discontinued it. She was seen in the outpatient department. Upon arrival, the patient was hypoxic with saturations of 80s, placed on 4 liters of oxygen supplementation. She now feels better. The patient does have a 6-year-old at home. She has not been ill. Her x-ray was reviewed. There are some perihilar infiltrates, possibly compatible with CHF and pneumonia. PAST MEDICAL HISTORY: Otherwise remarkable for asthma, chronic heart failure, CHF, fibromyalgia, gastroesophageal reflux, tachycardia, previous E. coli infection, hydronephrosis, cellulitis of the lower extremities, interstitial cystitis. PAST SURGICAL HISTORY: She has had previous lap band in 2004. She had a bariatric surgery in 2013, breast reduction surgery. She has also had gastric bypass. ALLERGIES: TO ADHESIVE TAPE, ASPARTAME, ERYTHROMYCIN BASE ANTIBIOTICS, TETRACYCLINE AND SOME FOOD'S ALLERGIES. FAMILY HISTORY: Noncontributory. Diabetes and hypertension. No lung disorders. SOCIAL HISTORY: She denies any tobacco use. REVIEW OF SYSTEMS: CONSTITUTIONAL: No fever or chills. EYES: No change in visual acuity. HEENT: No nasal congestion or sore throat. PULMONARY: As indicated above. CARDIOVASCULAR: No chest pain. No pressure. GASTROINTESTINAL: No nausea, vomiting, diarrhea. GENITOURINARY: No dysuria or frequency. MUSCULOSKELETAL: No localized muscle aches or joint pains. SKIN: No new skin lesions. PHYSICAL EXAMINATION: GENERAL: Morbid obese individual in no respiratory distress. VITAL SIGNS: Stable, currently on 4 liters, temperature is 97.8. HEENT: Eyes: The sclerae were nonicteric. NECK: Jugular venous distention was not elevated. No lymphadenopathy. CHEST: Full expansion. LUNGS: Crackles throughout both lung yanez. CARDIOVASCULAR: Distant heart sounds with S1, S2, no S3. ABDOMEN: Soft, nontender, obese. EXTREMITIES: No clubbing, cyanosis or edema. NEUROLOGIC: The patient was awake, alert, following commands. A detailed neuro exam was not performed. LABORATORY DATA: Reviewed. White count was elevated. Hemoglobin and hematocrit of 8.4 and 26. D-dimer was elevated. Electrolytes were noted. Potassium was low. BUN normal, creatinine was slightly elevated. Albumin was low. BNP was elevated. IMPRESSION: 1. Acute hypoxemic respiratory failure. 2. Abnormal x-ray compatible with acute on chronic heart failure, suspect diastolic. 3. Pneumonia, treated as an outpatient, failed outpatient treatment. 4. Morbid obesity. 5. Other comorbidities including asthma, fibromyalgia, gastroesophageal reflux and chronic cellulitis of the lower extremities. PLAN: 1. The patient was extremely short of breath when she came in, had O2 saturations of 80%, was placed on 4 liters. We will continue oxygen supplementation. 2. Continue antibiotics. 3. Obtain echocardiogram. 4. Continue home meds. 5. Replace potassium. 6. Nebulized treatments. 7. DVT prophylaxis. 8. GI prophylaxis. I do appreciate the privilege in sharing in the patient's care. TRICIA GARCIA MD DR: TATO/kranthi JOB#: [id number] / [id number]
[2018-07-11] MEDS: oxyCODONE/APAP 10/325 1 TAB TABLET PO PRN ×2 (06:20→18:23)
--- NOTE | 2018-07-11 06:21 | NUR ---
Patient asked for Oxycodone this AM- stated that order was scheduled for 0900. Patient stated that she takes Oxycodone BID PRN at home- not scheduled as previously ordered. Order changed to reflect PRN vs. scheduled.
[2018-07-11 07:00] VITALS: BP 137/85
[2018-07-11 07:08] LABS: % LYMPHS 8 % (24-48); % MONOS 1 % (0-10); % SEGS 91 % (35-66); ANISOCYTOSIS PRESENT; PLT ESTIMATE ADEQUATE (ADEQUATE); POLYCHROMASIA PRESENT
[2018-07-11] MEDS: ASPIRIN 325 MG TABLET PO SCH (08:00)
[2018-07-11] MEDS: SODIUM CHLORIDE 0.65% NASAL SPRAY 45ML BOTTLE. NS SCH ×2 (09:00→21:00)
[2018-07-11] MEDS: FLUTICASONE 50MCG/NASAL SPRAY 16GM BOTTLE. NS SCH (09:00)
[2018-07-11] MEDS: MUPIROCIN 2 % TOPICAL CREAM 30GM TUBE. TP SCH ×3 (09:00→21:00)
--- NOTE | 2018-07-11 09:27 | PDOC ---
PULMONARY PROGRESS NOTES Subjective PT LESS SOA Vitals Vital Signs Date Time Temp Pulse Resp B/P (MAP) Pulse Ox O2 Delivery O2 Flow Rate FiO2 07/11/18 07:00 97.5 95 18 137/85 (102) 91 Nasal Cannula 4.0 97.5 ROS: No Nausea, No Chest Pain, No Abdominal Pain, No Increase Cough General: Alert, No acute distress Lungs: Crackles Cardiovascular: S1 Abdomen: Soft, Non-tender Neuro Exam: Alert Extremities: No Edema Skin: Warm, Other (CELLULITIS) Labs Laboratory Tests Test 07/10/18 14:10 07/10/18 18:10 07/10/18 21:30 07/11/18 03:55 White Blood Count 11.4 x10^3/uL (4.0-11.0) 10.4 x10^3/uL (4.0-11.0) Red Blood Count 2.81 x10^6/uL (3.50-5.40) 2.89 x10^6/uL (3.50-5.40) Hemoglobin 8.4 g/dL (12.0-15.5) 8.7 g/dL (12.0-15.5) Hematocrit 26.9 % (36.0-47.0) 27.9 % (36.0-47.0) Mean Corpuscular Volume 96 fL (79-100) 97 fL (79-100) Mean Corpuscular Hemoglobin 30 pg (25-35) 30 pg (25-35) Mean Corpuscular Hemoglobin Concent 31 g/dL (31-37) 31 g/dL (31-37) Red Cell Distribution Width 15.4 % (11.5-14.5) 15.5 % (11.5-14.5) Platelet Count 197 x10^3/uL (140-400) 203 x10^3/uL (140-400) Neutrophils (%) (Auto) 75 % (31-73) 93 % (31-73) Lymphocytes (%) (Auto) 14 % (24-48) 4 % (24-48) Monocytes (%) (Auto) 7 % (0-9) 3 % (0-9) Eosinophils (%) (Auto) 4 % (0-3) 0 % (0-3) Basophils (%) (Auto) 0 % (0-3) 0 % (0-3) Neutrophils # (Auto) 8.6 x10^3uL (1.8-7.7) 9.6 x10^3uL (1.8-7.7) Lymphocytes # (Auto) 1.6 x10^3/uL (1.0-4.8) 0.5 x10^3/uL (1.0-4.8) Monocytes # (Auto) 0.7 x10^3/uL (0.0-1.1) 0.3 x10^3/uL (0.0-1.1) Eosinophils # (Auto) 0.5 x10^3/uL (0.0-0.7) 0.0 x10^3/uL (0.0-0.7) Basophils # (Auto) 0.0 x10^3/uL (0.0-0.2) 0.0 x10^3/uL (0.0-0.2) D-Dimer (Terri) 0.53 ug/mlFEU (0.00-0.50) Sodium Level 141 mmol/L (136-145) 146 mmol/L (136-145) Potassium Level 2.7 mmol/L (3.5-5.1) 3.4 mmol/L (3.5-5.1) Chloride Level 102 mmol/L (98-107) 107 mmol/L (98-107) Carbon Dioxide Level 31 mmol/L (21-32) 31 mmol/L (21-32) Anion Gap 8 (6-14) 8 (6-14) Blood Urea Nitrogen 15 mg/dL (7-20) 12 mg/dL (7-20) Creatinine 1.1 mg/dL (0.6-1.0) 1.1 mg/dL (0.6-1.0) Estimated GFR (Cockcroft-Gault) 53.7 53.7 Glucose Level 110 mg/dL (70-99) 154 mg/dL (70-99) Calcium Level 8.4 mg/dL (8.5-10.1) 8.6 mg/dL (8.5-10.1) Total Bilirubin 1.2 mg/dL (0.2-1.0) Direct Bilirubin 0.5 mg/dL (0.0-0.2) Aspartate Amino Transf (AST/SGOT) 18 U/L (15-37) Alanine Aminotransferase (ALT/SGPT) 17 U/L (14-59) Alkaline Phosphatase 148 U/L (46-116) Troponin I Quantitative < 0.017 ng/mL (0.000-0.055) < 0.017 ng/mL (0.000-0.055) < 0.017 ng/mL (0.000-0.055) FJ-Gme-W-Type Natriuretic Peptide 791 pg/mL (0-124) Total Protein 6.2 g/dL (6.4-8.2) Albumin 2.7 g/dL (3.4-5.0) Lipase 45 U/L (73-393) Procalcitonin 0.32 ng/mL (0.00-0.10) Segmented Neutrophils % 91 % (35-66) Lymphocytes % 8 % (24-48) Monocytes % 1 % (0-10) Platelet Estimate Adequate (ADEQUATE) Polychromasia Present Anisocytosis Present Laboratory Tests Test 07/10/18 14:10 07/10/18 18:10 07/10/18 21:30 07/11/18 03:55 White Blood Count 11.4 x10^3/uL (4.0-11.0) 10.4 x10^3/uL (4.0-11.0) Red Blood Count 2.81 x10^6/uL (3.50-5.40) 2.89 x10^6/uL (3.50-5.40) Hemoglobin 8.4 g/dL (12.0-15.5) 8.7 g/dL (12.0-15.5) Hematocrit 26.9 % (36.0-47.0) 27.9 % (36.0-47.0) Mean Corpuscular Volume 96 fL (79-100) 97 fL (79-100) Mean Corpuscular Hemoglobin 30 pg (25-35) 30 pg (25-35) Mean Corpuscular Hemoglobin Concent 31 g/dL (31-37) 31 g/dL (31-37) Red Cell Distribution Width 15.4 % (11.5-14.5) 15.5 % (11.5-14.5) Platelet Count 197 x10^3/uL (140-400) 203 x10^3/uL (140-400) Neutrophils (%) (Auto) 75 % (31-73) 93 % (31-73) Lymphocytes (%) (Auto) 14 % (24-48) 4 % (24-48) Monocytes (%) (Auto) 7 % (0-9) 3 % (0-9) Eosinophils (%) (Auto) 4 % (0-3) 0 % (0-3) Basophils (%) (Auto) 0 % (0-3) 0 % (0-3) Neutrophils # (Auto) 8.6 x10^3uL (1.8-7.7) 9.6 x10^3uL (1.8-7.7) Lymphocytes # (Auto) 1.6 x10^3/uL (1.0-4.8) 0.5 x10^3/uL (1.0-4.8) Monocytes # (Auto) 0.7 x10^3/uL (0.0-1.1) 0.3 x10^3/uL (0.0-1.1) Eosinophils # (Auto) 0.5 x10^3/uL (0.0-0.7) 0.0 x10^3/uL (0.0-0.7) Basophils # (Auto) 0.0 x10^3/uL (0.0-0.2) 0.0 x10^3/uL (0.0-0.2) D-Dimer (Terri) 0.53 ug/mlFEU (0.00-0.50) Sodium Level 141 mmol/L (136-145) 146 mmol/L (136-145) Potassium Level 2.7 mmol/L (3.5-5.1) 3.4 mmol/L (3.5-5.1) Chloride Level 102 mmol/L (98-107) 107 mmol/L (98-107) Carbon Dioxide Level 31 mmol/L (21-32) 31 mmol/L (21-32) Anion Gap 8 (6-14) 8 (6-14) Blood Urea Nitrogen 15 mg/dL (7-20) 12 mg/dL (7-20) Creatinine 1.1 mg/dL (0.6-1.0) 1.1 mg/dL (0.6-1.0) Estimated GFR (Cockcroft-Gault) 53.7 53.7 Glucose Level 110 mg/dL (70-99) 154 mg/dL (70-99) Calcium Level 8.4 mg/dL (8.5-10.1) 8.6 mg/dL (8.5-10.1) Total Bilirubin 1.2 mg/dL (0.2-1.0) Direct Bilirubin 0.5 mg/dL (0.0-0.2) Aspartate Amino Transf (AST/SGOT) 18 U/L (15-37) Alanine Aminotransferase (ALT/SGPT) 17 U/L (14-59) Alkaline Phosphatase 148 U/L (46-116) Troponin I Quantitative < 0.017 ng/mL (0.000-0.055) < 0.017 ng/mL (0.000-0.055) < 0.017 ng/mL (0.000-0.055) NE-Tvd-F-Type Natriuretic Peptide 791 pg/mL (0-124) Total Protein 6.2 g/dL (6.4-8.2) Albumin 2.7 g/dL (3.4-5.0) Lipase 45 U/L (73-393) Procalcitonin 0.32 ng/mL (0.00-0.10) Segmented Neutrophils % 91 % (35-66) Lymphocytes % 8 % (24-48) Monocytes % 1 % (0-10) Platelet Estimate Adequate (ADEQUATE) Polychromasia Present Anisocytosis Present Medications Active Scripts Medications Dose Route/Sig Max Daily Dose Days Date Category Dose Instructions Diflucan (Fluconazole) 150 Mg Tablet 1 Tab PO ONCE 07/05/18 Rx Cephalexin 500 Mg Capsule 1 Cap PO QID 07/05/18 Rx Bactrim Ds Tablet (Sulfamethoxazole/Trimethoprim) 1 Each Tablet 1 Tab PO BID 07/05/18 Rx Bactroban Cream (Mupirocin) 15 Gm Cream..g. 1 Devendra TP TID 05/12/18 Rx Diclofenac Sodium 50 Mg Tablet.dr 1 Tab PO BID 05/12/18 Rx Lidocaine 1 Each Adh..patch 1 Each TP Q12HR PRN 03/25/18 Rx Remove patch in 12 hours and reapply if needed. Oxymorphone Hcl 30 Mg Tab.er.12h 30 Mg PO BID 11/05/17 Reported Zyrtec (Cetirizine Hcl) 10 Mg Tablet 10 Mg PO HS 11/05/17 Reported Saline Nasal [place] (Sodium Chloride) 30 Ml [place] 1 [place] NS BID 11/05/17 Reported Probiotic (L.acidoph & Paracasei,B.lactis) 1 Each Capsule 1 Each PO DAILY 11/05/17 Reported Rosa-[place] Heartburn+Gas (Calcium Carbonate/Simethicone) 1 Each Tab.chew 2 Each PO PRN 3-4XDAILY PRN 11/05/17 Reported Colace (Docusate Sodium) 100 Mg Capsule 300 Mg PO HS 11/05/17 Reported Potassium Chloride 20 Meq Tablet.er 20 Meq PO TID 11/05/17 Reported Atorvastatin Calcium 40 Mg Tablet 1 Tab PO DAILY 11/05/17 Reported Ferrous Sulfate 325 Mg Tablet 1 Tab PO HS 11/05/17 Reported Buspirone Hcl 10 Mg Tablet 10 Mg PO TID 03/26/17 Reported Phenazopyridine Hcl 200 Mg Tablet 1 Tab PO TIDPC 01/03/17 Reported Lyrica (Pregabalin) 150 Mg Capsule 1 Cap PO TID 10/29/16 Reported Budesonide Nasal [place] (Budesonide) 8.6 Gm [place].pump 1 [place] NS BID 10/28/16 Reported Benadryl (Diphenhydramine Hcl) 25 Mg Capsule 3 Cap PO TID 10/28/16 Reported Melatonin 3 Mg Tablet 10 Mg PO HS 10/28/16 Reported Multivitamins (Multivitamin) 1 Each Tablet 1 Tab PO DAILY 10/28/16 Reported Proair Hfa Inhaler (Albuterol Sulfate) 8.5 Gm Hfa.aer.ad 1 Puff INH PRN Q6HRS PRN 01/29/16 Reported Olanzapine-Fluoxetine 12-25 Mg (Olanzapine/Fluoxetine Hcl) 1 Each Capsule 1 Each PO HS 01/29/16 Reported Furosemide 40 Mg Tablet 40 Mg PO BID 01/29/16 Reported Aspirin 325 Mg Tablet 325 Mg PO DAILYWBKFT 07/11/15 Rx Naproxen 500 Mg Tablet 1 Tab PO BID 07/01/15 Reported Amitriptyline Hcl 100 Mg Tablet 1-2 Tab PO QHS 07/01/15 Reported Tizanidine Hcl 4 Mg Tablet 1 Tab PO TID 07/01/15 Reported Prochlorperazine Maleate 10 Mg Tablet 1 Tab PO PRN TID PRN 07/01/15 Reported Levothyroxine Sodium 75 Mcg Tablet 75 Mcg PO DAILY06 03/22/13 Reported Singulair Tablet (Montelukast Sodium) 10 Mg Tablet 10 Mg PO QHS 03/22/13 Reported Prevacid (Lansoprazole) 15 Mg Capsule.dr 15 Mg PO QHS 03/22/13 Reported Impression . IMPRESSION: 1. Acute hypoxemic respiratory failure. 2. Abnormal x-ray compatible with acute on chronic heart failure, suspect diastolic. 3. Pneumonia, treated as an outpatient, failed outpatient treatment. 4. Morbid obesity. 5. Other comorbidities including asthma, fibromyalgia, gastroesophageal reflux and chronic cellulitis of the lower extremities. Plan . REPEAT CXR IN AM CONTINUE THE SAME 1. The patient was extremely short of breath when she came in, had O2 saturations of 80%, was placed on 4 liters. We will continue oxygen supplementation. 2. Continue antibiotics. 3. Obtain echocardiogram. 4. Continue home meds. 5. Replace potassium. 6. Nebulized treatments. 7. DVT prophylaxis. 8. GI prophylaxis. TRICIA GARCIA MD July 11, 2018 09:27
[2018-07-11] MEDS: FUROSEMIDE 40 MG TABLET. PO SCH ×2 (09:44→14:03)
[2018-07-11] MEDS: IRON POLYSACCHARIDE COMPLEX 150 MG CAPSULE PO SCH (09:44)
[2018-07-11] MEDS: MORPHINE ER 15 MG TABLET.ER PO SCH ×2 (09:44→21:43)
[2018-07-11] MEDS: PREGABALIN 75 MG CAPSULE PO SCH ×2 (09:44→21:44)
[2018-07-11] MEDS: busPIRone 10 MG TABLET. PO SCH ×3 (09:44→21:43)
[2018-07-11] MEDS: MULTIVITAMIN with MINERAL TABLET. PO SCH (09:45)
[2018-07-11] MEDS: LACTOBACILLUS RHAMNOSUS GG 1 CAPSULE. PO SCH (09:45)
[2018-07-11] MEDS: POTASSIUM CHLORIDE 20 MEQ TABLET.ER. PO SCH ×3 (09:45→17:01)
[2018-07-11] MEDS: ENOXAPARIN 40 MG/0.4 ML SYRINGE. SQ SCH ×2 (09:46→21:45)
[2018-07-11 11:00] VITALS: BP 134/84
--- NOTE | 2018-07-11 11:35 | PDOC ---
PROGRESS NOTES Chief Complaint Chief Complaint 1. Acute hypoxemic respiratory failure. 2. Abnormal x-ray compatible with acute on chronic heart failure, suspect diastolic. 3. Pneumonia, treated as an outpatient, failed outpatient treatment. 4. Morbid obesity. 5. Other comorbidities including asthma, fibromyalgia, gastroesophageal reflux and chronic cellulitis of the lower extremities. History of Present Illness History of Present Illness She feels better Chest x-ray: Bilateral perihilar interstitial infiltrates greater on the left. Mild pulmonary vasculature congestion. Follow-up to resolution recommended. Appreciate Pulmo She has failed OP clinda PLAN: CPM Vitals Vitals Vital Signs Date Time Temp Pulse Resp B/P (MAP) Pulse Ox O2 Delivery O2 Flow Rate FiO2 07/11/18 08:00 Nasal Cannula 4.0 07/11/18 07:00 97.5 95 18 137/85 (102) 91 97.5 Physical Exam General: Alert, Oriented X3, Cooperative, No acute distress Heart: Regular rate, Normal S1, Normal S2 Lungs: Other (diminished but no wheezing) Abdomen: Normal bowel sounds, Soft, No tenderness, No hepatosplenomegaly Extremities: No clubbing, No cyanosis, No edema Skin: No rashes, No breakdown, No significant lesion Labs LABS Laboratory Tests Test 07/10/18 14:10 07/10/18 18:10 07/10/18 21:30 07/11/18 03:55 White Blood Count 11.4 x10^3/uL (4.0-11.0) 10.4 x10^3/uL (4.0-11.0) Red Blood Count 2.81 x10^6/uL (3.50-5.40) 2.89 x10^6/uL (3.50-5.40) Hemoglobin 8.4 g/dL (12.0-15.5) 8.7 g/dL (12.0-15.5) Hematocrit 26.9 % (36.0-47.0) 27.9 % (36.0-47.0) Mean Corpuscular Volume 96 fL (79-100) 97 fL (79-100) Mean Corpuscular Hemoglobin 30 pg (25-35) 30 pg (25-35) Mean Corpuscular Hemoglobin Concent 31 g/dL (31-37) 31 g/dL (31-37) Red Cell Distribution Width 15.4 % (11.5-14.5) 15.5 % (11.5-14.5) Platelet Count 197 x10^3/uL (140-400) 203 x10^3/uL (140-400) Neutrophils (%) (Auto) 75 % (31-73) 93 % (31-73) Lymphocytes (%) (Auto) 14 % (24-48) 4 % (24-48) Monocytes (%) (Auto) 7 % (0-9) 3 % (0-9) Eosinophils (%) (Auto) 4 % (0-3) 0 % (0-3) Basophils (%) (Auto) 0 % (0-3) 0 % (0-3) Neutrophils # (Auto) 8.6 x10^3uL (1.8-7.7) 9.6 x10^3uL (1.8-7.7) Lymphocytes # (Auto) 1.6 x10^3/uL (1.0-4.8) 0.5 x10^3/uL (1.0-4.8) Monocytes # (Auto) 0.7 x10^3/uL (0.0-1.1) 0.3 x10^3/uL (0.0-1.1) Eosinophils # (Auto) 0.5 x10^3/uL (0.0-0.7) 0.0 x10^3/uL (0.0-0.7) Basophils # (Auto) 0.0 x10^3/uL (0.0-0.2) 0.0 x10^3/uL (0.0-0.2) D-Dimer (Terri) 0.53 ug/mlFEU (0.00-0.50) Sodium Level 141 mmol/L (136-145) 146 mmol/L (136-145) Potassium Level 2.7 mmol/L (3.5-5.1) 3.4 mmol/L (3.5-5.1) Chloride Level 102 mmol/L (98-107) 107 mmol/L (98-107) Carbon Dioxide Level 31 mmol/L (21-32) 31 mmol/L (21-32) Anion Gap 8 (6-14) 8 (6-14) Blood Urea Nitrogen 15 mg/dL (7-20) 12 mg/dL (7-20) Creatinine 1.1 mg/dL (0.6-1.0) 1.1 mg/dL (0.6-1.0) Estimated GFR (Cockcroft-Gault) 53.7 53.7 Glucose Level 110 mg/dL (70-99) 154 mg/dL (70-99) Calcium Level 8.4 mg/dL (8.5-10.1) 8.6 mg/dL (8.5-10.1) Total Bilirubin 1.2 mg/dL (0.2-1.0) Direct Bilirubin 0.5 mg/dL (0.0-0.2) Aspartate Amino Transf (AST/SGOT) 18 U/L (15-37) Alanine Aminotransferase (ALT/SGPT) 17 U/L (14-59) Alkaline Phosphatase 148 U/L (46-116) Troponin I Quantitative < 0.017 ng/mL (0.000-0.055) < 0.017 ng/mL (0.000-0.055) < 0.017 ng/mL (0.000-0.055) SR-Wpc-L-Type Natriuretic Peptide 791 pg/mL (0-124) Total Protein 6.2 g/dL (6.4-8.2) Albumin 2.7 g/dL (3.4-5.0) Lipase 45 U/L (73-393) Procalcitonin 0.32 ng/mL (0.00-0.10) Segmented Neutrophils % 91 % (35-66) Lymphocytes % 8 % (24-48) Monocytes % 1 % (0-10) Platelet Estimate Adequate (ADEQUATE) Polychromasia Present Anisocytosis Present Review of Systems Review of Systems A 14 point ROS was completed with the following noted as positive: Other systems reviewed and negative. \CONSTITUTIONAL: No fever or chills EYES: No recent changes SKIN: No rash or itching CARDIOVASCULAR: No chest pain, syncope, palpitations, or edema RESPIRATORY: No SOB or cough GASTROINTESTINAL: No nausea, vomiting or abdominal pain NEUROLOGICAL: No headaches or weakness ENDOCRINE: No cold or heat intolerance GENITOURINARY: No urgency or frequency of urination MUSCULOSKELETAL: No back pain or joint pain LYMPHATICS: No enlarged lymph nodes PSYCHIATRIC: No anxiety or depression Assessment and Plan Assessmemt and Plan Problems Medical Problems: (1) Bilateral pneumonia Status: Acute (2) Hypoxia Status: Acute Comment Review of Relevant I have reviewed the following items oxana (where applicable) has been applied. Labs Laboratory Tests Test 07/10/18 14:10 07/10/18 18:10 07/10/18 21:30 07/11/18 03:55 White Blood Count 11.4 x10^3/uL (4.0-11.0) 10.4 x10^3/uL (4.0-11.0) Red Blood Count 2.81 x10^6/uL (3.50-5.40) 2.89 x10^6/uL (3.50-5.40) Hemoglobin 8.4 g/dL (12.0-15.5) 8.7 g/dL (12.0-15.5) Hematocrit 26.9 % (36.0-47.0) 27.9 % (36.0-47.0) Mean Corpuscular Volume 96 fL (79-100) 97 fL (79-100) Mean Corpuscular Hemoglobin 30 pg (25-35) 30 pg (25-35) Mean Corpuscular Hemoglobin Concent 31 g/dL (31-37) 31 g/dL (31-37) Red Cell Distribution Width 15.4 % (11.5-14.5) 15.5 % (11.5-14.5) Platelet Count 197 x10^3/uL (140-400) 203 x10^3/uL (140-400) Neutrophils (%) (Auto) 75 % (31-73) 93 % (31-73) Lymphocytes (%) (Auto) 14 % (24-48) 4 % (24-48) Monocytes (%) (Auto) 7 % (0-9) 3 % (0-9) Eosinophils (%) (Auto) 4 % (0-3) 0 % (0-3) Basophils (%) (Auto) 0 % (0-3) 0 % (0-3) Neutrophils # (Auto) 8.6 x10^3uL (1.8-7.7) 9.6 x10^3uL (1.8-7.7) Lymphocytes # (Auto) 1.6 x10^3/uL (1.0-4.8) 0.5 x10^3/uL (1.0-4.8) Monocytes # (Auto) 0.7 x10^3/uL (0.0-1.1) 0.3 x10^3/uL (0.0-1.1) Eosinophils # (Auto) 0.5 x10^3/uL (0.0-0.7) 0.0 x10^3/uL (0.0-0.7) Basophils # (Auto) 0.0 x10^3/uL (0.0-0.2) 0.0 x10^3/uL (0.0-0.2) D-Dimer (Terri) 0.53 ug/mlFEU (0.00-0.50) Sodium Level 141 mmol/L (136-145) 146 mmol/L (136-145) Potassium Level 2.7 mmol/L (3.5-5.1) 3.4 mmol/L (3.5-5.1) Chloride Level 102 mmol/L (98-107) 107 mmol/L (98-107) Carbon Dioxide Level 31 mmol/L (21-32) 31 mmol/L (21-32) Anion Gap 8 (6-14) 8 (6-14) Blood Urea Nitrogen 15 mg/dL (7-20) 12 mg/dL (7-20) Creatinine 1.1 mg/dL (0.6-1.0) 1.1 mg/dL (0.6-1.0) Estimated GFR (Cockcroft-Gault) 53.7 53.7 Glucose Level 110 mg/dL (70-99) 154 mg/dL (70-99) Calcium Level 8.4 mg/dL (8.5-10.1) 8.6 mg/dL (8.5-10.1) Total Bilirubin 1.2 mg/dL (0.2-1.0) Direct Bilirubin 0.5 mg/dL (0.0-0.2) Aspartate Amino Transf (AST/SGOT) 18 U/L (15-37) Alanine Aminotransferase (ALT/SGPT) 17 U/L (14-59) Alkaline Phosphatase 148 U/L (46-116) Troponin I Quantitative < 0.017 ng/mL (0.000-0.055) < 0.017 ng/mL (0.000-0.055) < 0.017 ng/mL (0.000-0.055) BL-Qbh-G-Type Natriuretic Peptide 791 pg/mL (0-124) Total Protein 6.2 g/dL (6.4-8.2) Albumin 2.7 g/dL (3.4-5.0) Lipase 45 U/L (73-393) Procalcitonin 0.32 ng/mL (0.00-0.10) Segmented Neutrophils % 91 % (35-66) Lymphocytes % 8 % (24-48) Monocytes % 1 % (0-10) Platelet Estimate Adequate (ADEQUATE) Polychromasia Present Anisocytosis Present Laboratory Tests Test 07/10/18 14:10 07/10/18 18:10 07/10/18 21:30 07/11/18 03:55 White Blood Count 11.4 x10^3/uL (4.0-11.0) 10.4 x10^3/uL (4.0-11.0) Red Blood Count 2.81 x10^6/uL (3.50-5.40) 2.89 x10^6/uL (3.50-5.40) Hemoglobin 8.4 g/dL (12.0-15.5) 8.7 g/dL (12.0-15.5) Hematocrit 26.9 % (36.0-47.0) 27.9 % (36.0-47.0) Mean Corpuscular Volume 96 fL (79-100) 97 fL (79-100) Mean Corpuscular Hemoglobin 30 pg (25-35) 30 pg (25-35) Mean Corpuscular Hemoglobin Concent 31 g/dL (31-37) 31 g/dL (31-37) Red Cell Distribution Width 15.4 % (11.5-14.5) 15.5 % (11.5-14.5) Platelet Count 197 x10^3/uL (140-400) 203 x10^3/uL (140-400) Neutrophils (%) (Auto) 75 % (31-73) 93 % (31-73) Lymphocytes (%) (Auto) 14 % (24-48) 4 % (24-48) Monocytes (%) (Auto) 7 % (0-9) 3 % (0-9) Eosinophils (%) (Auto) 4 % (0-3) 0 % (0-3) Basophils (%) (Auto) 0 % (0-3) 0 % (0-3) Neutrophils # (Auto) 8.6 x10^3uL (1.8-7.7) 9.6 x10^3uL (1.8-7.7) Lymphocytes # (Auto) 1.6 x10^3/uL (1.0-4.8) 0.5 x10^3/uL (1.0-4.8) Monocytes # (Auto) 0.7 x10^3/uL (0.0-1.1) 0.3 x10^3/uL (0.0-1.1) Eosinophils # (Auto) 0.5 x10^3/uL (0.0-0.7) 0.0 x10^3/uL (0.0-0.7) Basophils # (Auto) 0.0 x10^3/uL (0.0-0.2) 0.0 x10^3/uL (0.0-0.2) D-Dimer (Terri) 0.53 ug/mlFEU (0.00-0.50) Sodium Level 141 mmol/L (136-145) 146 mmol/L (136-145) Potassium Level 2.7 mmol/L (3.5-5.1) 3.4 mmol/L (3.5-5.1) Chloride Level 102 mmol/L (98-107) 107 mmol/L (98-107) Carbon Dioxide Level 31 mmol/L (21-32) 31 mmol/L (21-32) Anion Gap 8 (6-14) 8 (6-14) Blood Urea Nitrogen 15 mg/dL (7-20) 12 mg/dL (7-20) Creatinine 1.1 mg/dL (0.6-1.0) 1.1 mg/dL (0.6-1.0) Estimated GFR (Cockcroft-Gault) 53.7 53.7 Glucose Level 110 mg/dL (70-99) 154 mg/dL (70-99) Calcium Level 8.4 mg/dL (8.5-10.1) 8.6 mg/dL (8.5-10.1) Total Bilirubin 1.2 mg/dL (0.2-1.0) Direct Bilirubin 0.5 mg/dL (0.0-0.2) Aspartate Amino Transf (AST/SGOT) 18 U/L (15-37) Alanine Aminotransferase (ALT/SGPT) 17 U/L (14-59) Alkaline Phosphatase 148 U/L (46-116) Troponin I Quantitative < 0.017 ng/mL (0.000-0.055) < 0.017 ng/mL (0.000-0.055) < 0.017 ng/mL (0.000-0.055) IX-Orw-L-Type Natriuretic Peptide 791 pg/mL (0-124) Total Protein 6.2 g/dL (6.4-8.2) Albumin 2.7 g/dL (3.4-5.0) Lipase 45 U/L (73-393) Procalcitonin 0.32 ng/mL (0.00-0.10) Segmented Neutrophils % 91 % (35-66) Lymphocytes % 8 % (24-48) Monocytes % 1 % (0-10) Platelet Estimate Adequate (ADEQUATE) Polychromasia Present Anisocytosis Present Medications Current Medications Albuterol/ Ipratropium (Duoneb) 3 ml 1X ONCE NEB Last administered on 07/10/18at 14:21; Start 07/10/18 at 14:00; Stop 07/10/18 at 14:01; Status DC Ceftriaxone Sodium (Rocephin) 1 gm 1X ONCE IVP ; Start 07/10/18 at 15:15; Stop 07/10/18 at 15:17; Status DC Ondansetron HCl (Zofran) 4 mg PRN Q8HRS PRN IV NAUSEA/VOMITING Last administered on 07/10/18at 21:25; Start 07/10/18 at 15:15; Stop 07/11/18 at 15:14 Sodium Chloride 1,000 ml @ 100 mls/hr Q10H IV Last administered on 07/10/18at 17:52; Start 07/10/18 at 15:13; Stop 07/10/18 at 19:12; Status DC Piperacillin Sod/ Tazobactam Sod (Zosyn Per Pharmacy) 1 each PRN DAILY PRN MC SEE COMMENTS; Start 07/10/18 at 15:15 Piperacillin Sod/ Tazobactam Sod 3.375 gm/Sodium Chloride 50 ml @ 100 mls/hr 1X ONCE IV Last administered on 07/10/18at 15:45; Start 07/10/18 at 15:30; Stop 07/10/18 at 15:59; Status DC Potassium Chloride (Klor-Con) 40 meq 1X ONCE PO Last administered on 07/10/18at 15:45; Start 07/10/18 at 15:30; Stop 07/10/18 at 15:31; Status DC Piperacillin Sod/ Tazobactam Sod 3.375 gm/Sodium Chloride 50 ml @ 100 mls/hr Q6HRS IV Last administered on 07/11/18at 06:13; Start 07/11/18 at 00:00 Albuterol Sulfate (Ventolin Neb Soln) 2.5 mg PRN Q6HRS PRN INH SHORTNESS OF BREATH Last administered on 07/10/18at 22:19; Start 07/10/18 at 17:00 Aspirin (Corazon Aspirin) 325 mg DAILYWBKFT PO ; Start 07/11/18 at 08:00 Atorvastatin Calcium (Lipitor) 40 mg QHS PO Last administered on 07/10/18at 21:16; Start 07/10/18 at 21:00 Buspirone HCl (Buspar) 10 mg TID PO Last administered on 07/11/18at 09:44; S tart 07/10/18 at 21:00 Cetirizine HCl (ZyrTEC) 10 mg HS PO Last administered on 07/10/18at 21:16; Start 07/10/18 at 21:00 Docusate Sodium (Colace) 300 mg HS PO ; Start 07/10/18 at 21:00 Ferrous Sulfate (Feosol) 325 mg HS PO Last administered on 07/10/18at 21:16; Start 07/10/18 at 21:00 Furosemide (Lasix) 40 mg BID92 PO Last administered on 07/11/18at 09:44; Start 07/11/18 at 09:00 Mupirocin (Bactroban) 1 eusebio TID TP ; Start 07/10/18 at 21:00 Prochlorperazine Maleate (Compazine) 10 mg PRN TID PRN PO NAUSEA; Start 07/10/18 at 17:00 Amitriptyline HCl (Elavil) 100 mg QHS PO Last administered on 07/10/18 21:19; Start 07/10/18 at 21:00 Fluticasone Propionate (Flonase) 2 spray DAILY NS ; Start 07/11/18 at 09:00 Calcium Carbonate/ Glycine (Tums) 500 mg PRN AFTMEALHC PRN PO INDIGESTION; Start 07/10/18 at 17:15 Lactobacillus Rhamnosus (Culturelle) 1 cap DAILY PO Last administered on 07/11/18at 09:45; Start 07/11/18 at 09:00 Pantoprazole Sodium (Protonix) 40 mg QHS PO Last administered on 07/10/18 21:19; Start 07/10/18 at 21:00 Lidocaine (Lidoderm) 1 patch PRN Q12HR PRN TD PAIN; Start 07/10/18 at 21:00 Non-Formulary Medication (Melatonin ) 10 mg HS PO ; Start 07/10/18 at 21:00; Status UNV Montelukast Sodium (Singulair) 10 mg QHS PO Last administered on 07/10/18 2 1:18; Start 07/10/18 at 21:00 Multivitamins (Thera M Plus) 1 tab DAILY PO Last administered on 07/11/18 09:45; Start 07/11/18 at 09:00 Olanzapine (ZyPREXA) 12.5 mg QHS PO Last administered on 07/10/18 21:18; Start 07/10/18 at 21:00; Stop 07/10/18 at 21:57; Status DC Potassium Chloride (Klor-Con) 20 meq TIDWMEALS PO Last administered on 07/11/18 09:45; Start 07/10/18 at 17:00 Pregabalin (Lyrica) 150 mg BID PO Last administered on 07/11/18 09:44; Start 07/10/18 at 21:00 Sodium Chloride (Saline Mist Nasal) 1 eusebio BID NS ; Start 07/10/18 at 17:15 Polysaccharide Iron Complex (Niferex 150) 150 mg DAILY PO Last administered on 07/11/18 09:44; Start 07/11/18 at 09:00 Fluoxetine HCl (PROzac) 25 mg QHS PO ; Start 07/10/18 at 21:00; Status Cancel Methylprednisolone Sodium Succinate (SOLU-Medrol 125MG VIAL) 60 mg Q8HRS IV Last administered on 07/11/18at 06:13; Start 07/10/18 at 22:00 Enoxaparin Sodium (Lovenox 40mg Syringe) 40 mg Q12HR SQ Last administered on 07/11/18at 09:46; Start 07/10/18 at 21:00 Morphine Sulfate (Ms Contin) 15 mg BID PO ; Start 07/10/18 at 20:00; Status Cancel Oxycodone/ Acetaminophen (Percocet 10/325) 1 tab BID PO Last administered on 07/10/18at 21:18; Start 07/10/18 at 21:00; Stop 07/11/18 at 06:15; Status DC Morphine Sulfate (Ms Contin) 30 mg Q12HR PO Last administered on 07/11/18at 09:44; Start 07/10/18 at 21:00 Non-Formulary Medication 1 ea QHS PO Last administered on 07/10/18at 22:07; Start 07/10/18 at 22:00 Oxycodone/ Acetaminophen (Percocet 10/325) 1 tab PRN BID PRN PO SEVERE PAIN Last administered on 07/11/18at 06:20; Start 07/11/18 at 06:15 Active Scripts Active Aspirin 325 Mg Tablet 325 Mg PO DAILYWBKFT Reported Morphine Sulfate Er (Morphine Sulfate) 30 Mg Tablet.er 30 Mg PO Q12HR Oxycodone-Acetaminophen 10-325 (Oxycodone Hcl/Acetaminophen) 1 Each Tablet 10 Mg PO BID Zyrtec (Cetirizine Hcl) 10 Mg Tablet 10 Mg PO HS Saline Nasal Wolcott (Sodium Chloride) 30 Ml Wol[place] 1 [place] NS BID Probiotic (L.acidoph & Paracasei,B.lactis) 1 Each Capsule 1 Each PO DAILY Rosa-Ceres Heartburn+Gas (Calcium Carbonate/Simethicone) 1 Each Tab.chew 2 Each PO PRN 3-4XDAILY PRN Colace (Docusate Sodium) 100 Mg Capsule 300 Mg PO HS Potassium Chloride 20 Meq Tablet.er 20 Meq PO TID Atorvastatin Calcium 40 Mg Tablet 1 Tab PO DAILY Buspirone Hcl 10 Mg Tablet 10 Mg PO TID Phenazopyridine Hcl 200 Mg Tablet 1 Tab PO TIDPC Lyrica (Pregabalin) 150 Mg Capsule 1 Cap PO TID Melatonin 3 Mg Tablet 10 Mg PO HS Multivitamins (Multivitamin) 1 Each Tablet 1 Tab PO DAILY Proair Hfa Inhaler (Albuterol Sulfate) 8.5 Gm Hfa.aer.ad 1 Puff INH PRN Q6HRS PRN Olanzapine-Fluoxetine 12-25 Mg (Olanzapine/Fluoxetine Hcl) 1 Each Capsule 1 Each PO HS Naproxen 500 Mg Tablet 1 Tab PO BID Amitriptyline Hcl 100 Mg Tablet 1-2 Tab PO QHS Tizanidine Hcl 4 Mg Tablet 1 Tab PO TID Prochlorperazine Maleate 10 Mg Tablet 1 Tab PO PRN TID PRN Levothyroxine Sodium 75 Mcg Tablet 75 Mcg PO DAILY06 Singulair Tablet (Montelukast Sodium) 10 Mg Tablet 10 Mg PO QHS Prevacid (Lansoprazole) 15 Mg Capsule.dr 15 Mg PO QHS Vitals/I & O Vital Sign - Last 24 Hours 07/10/18 07/10/18 07/10/18 07/10/18 13:46 14:22 14:50 15:20 Temp 99.1 99.1 Pulse 126 108 94 Resp 20 B/P (MAP) 113/47 (69) 111/54 (73) 107/54 (71) Pulse Ox 82 94 95 96 O2 Delivery Room Air Nasal Cannula Nasal Cannula Nasal Cannula O2 Flow Rate 4.0 4.0 07/10/18 07/10/18 07/10/18 07/10/18 17:26 18:14 19:00 20:00 Temp 97.8 98.3 97.8 98.3 Pulse 78 86 Resp 20 16 B/P (MAP) 108/70 (83) 105/63 (77) Pulse Ox 95 93 O2 Delivery Nasal Cannula Nasal Cannula Nasal Cannula Nasal Cannula O2 Flow Rate 4.0 4.0 4.0 4.0 07/10/18 07/10/18 07/10/18 07/10/18 21:17 21:18 22:19 22:54 Pulse Ox 90 O2 Delivery Nasal Cannula Nasal Cannula Nasal Cannula Nasal Cannula O2 Flow Rate 4.0 4.0 4.0 4.0 07/10/18 07/11/18 07/11/18 07/11/18 23:00 02:09 03:00 06:20 Temp 98.9 98.1 98.9 98.1 Pulse 111 96 Resp 18 18 B/P (MAP) 112/64 (80) 130/77 (94) Pulse Ox 90 90 O2 Delivery Nasal Cannula Nasal Cannula Nasal Cannula Nasal Cannula O2 Flow Rate 4.0 4.0 4.0 4.0 07/11/18 07/11/18 07:00 08:00 Temp 97.5 97.5 Pulse 95 Resp 18 B/P (MAP) 137/85 (102) Pulse Ox 91 O2 Delivery Nasal Cannula Nasal Cannula O2 Flow Rate 4.0 4.0 Intake and Output 07/10/18 07/10/18 07/11/18 15:00 23:00 07:00 Intake Total 0 ml 300 ml Output Total 800 ml Balance 0 ml -500 ml JOAQUIN HERNANDEZ MD July 11, 2018 11:35
[2018-07-11] MEDS: ONDANSETRON PF 4 MG/2 ML VIAL. IV PRN (12:39)
--- NOTE | 2018-07-11 14:20 | PDOC ---
Infectious Disease Note Vital Sign Vital Signs Vital Signs Date Time Temp Pulse Resp B/P (MAP) Pulse Ox O2 Delivery O2 Flow Rate FiO2 07/11/18 11:00 98.6 104 18 134/84 (101) 90 Nasal Cannula 4.0 98.6 Labs Lab Laboratory Tests Test 07/10/18 14:10 07/10/18 18:10 07/10/18 21:30 07/11/18 03:55 White Blood Count 11.4 x10^3/uL (4.0-11.0) 10.4 x10^3/uL (4.0-11.0) Red Blood Count 2.81 x10^6/uL (3.50-5.40) 2.89 x10^6/uL (3.50-5.40) Hemoglobin 8.4 g/dL (12.0-15.5) 8.7 g/dL (12.0-15.5) Hematocrit 26.9 % (36.0-47.0) 27.9 % (36.0-47.0) Mean Corpuscular Volume 96 fL (79-100) 97 fL (79-100) Mean Corpuscular Hemoglobin 30 pg (25-35) 30 pg (25-35) Mean Corpuscular Hemoglobin Concent 31 g/dL (31-37) 31 g/dL (31-37) Red Cell Distribution Width 15.4 % (11.5-14.5) 15.5 % (11.5-14.5) Platelet Count 197 x10^3/uL (140-400) 203 x10^3/uL (140-400) Neutrophils (%) (Auto) 75 % (31-73) 93 % (31-73) Lymphocytes (%) (Auto) 14 % (24-48) 4 % (24-48) Monocytes (%) (Auto) 7 % (0-9) 3 % (0-9) Eosinophils (%) (Auto) 4 % (0-3) 0 % (0-3) Basophils (%) (Auto) 0 % (0-3) 0 % (0-3) Neutrophils # (Auto) 8.6 x10^3uL (1.8-7.7) 9.6 x10^3uL (1.8-7.7) Lymphocytes # (Auto) 1.6 x10^3/uL (1.0-4.8) 0.5 x10^3/uL (1.0-4.8) Monocytes # (Auto) 0.7 x10^3/uL (0.0-1.1) 0.3 x10^3/uL (0.0-1.1) Eosinophils # (Auto) 0.5 x10^3/uL (0.0-0.7) 0.0 x10^3/uL (0.0-0.7) Basophils # (Auto) 0.0 x10^3/uL (0.0-0.2) 0.0 x10^3/uL (0.0-0.2) D-Dimer (Terri) 0.53 ug/mlFEU (0.00-0.50) Sodium Level 141 mmol/L (136-145) 146 mmol/L (136-145) Potassium Level 2.7 mmol/L (3.5-5.1) 3.4 mmol/L (3.5-5.1) Chloride Level 102 mmol/L (98-107) 107 mmol/L (98-107) Carbon Dioxide Level 31 mmol/L (21-32) 31 mmol/L (21-32) Anion Gap 8 (6-14) 8 (6-14) Blood Urea Nitrogen 15 mg/dL (7-20) 12 mg/dL (7-20) Creatinine 1.1 mg/dL (0.6-1.0) 1.1 mg/dL (0.6-1.0) Estimated GFR (Cockcroft-Gault) 53.7 53.7 Glucose Level 110 mg/dL (70-99) 154 mg/dL (70-99) Calcium Level 8.4 mg/dL (8.5-10.1) 8.6 mg/dL (8.5-10.1) Total Bilirubin 1.2 mg/dL (0.2-1.0) Direct Bilirubin 0.5 mg/dL (0.0-0.2) Aspartate Amino Transf (AST/SGOT) 18 U/L (15-37) Alanine Aminotransferase (ALT/SGPT) 17 U/L (14-59) Alkaline Phosphatase 148 U/L (46-116) Troponin I Quantitative < 0.017 ng/mL (0.000-0.055) < 0.017 ng/mL (0.000-0.055) < 0.017 ng/mL (0.000-0.055) KO-Nws-T-Type Natriuretic Peptide 791 pg/mL (0-124) Total Protein 6.2 g/dL (6.4-8.2) Albumin 2.7 g/dL (3.4-5.0) Lipase 45 U/L (73-393) Procalcitonin 0.32 ng/mL (0.00-0.10) Segmented Neutrophils % 91 % (35-66) Lymphocytes % 8 % (24-48) Monocytes % 1 % (0-10) Platelet Estimate Adequate (ADEQUATE) Polychromasia Present Anisocytosis Present Objective Assessment Pneumonia -Previously on outpatient Clindamycin, quit d/t diarrhea Allergy erythromycin (unknown) and tetracycline w/ hives and throat swelling Diarrhea Acute on chronic heart failure 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 Recent h/o cellulitis of legs, treated Bactrim and Keflex she says Recent h/o teeth extractions Hypothyroidism Obesity Plan Plan of Care Continue Zosyn Steroids f/u BC Sputum culture Monitor response Thank you [id number] Patient seen and examined. Chart reviewed in detail. Case discussed with FLIGHT TEST ENGINEER. Agree with above plan. DOROTEO RODRIGUEZ APRN July 11, 2018 14:20 HAI JULIO MD July 11, 2018 22:22
[2018-07-11 15:00] VITALS: BP 147/88
[2018-07-11] MEDS: MORPHINE SULFATE 2 MG/ML VIAL. IV PRN ×2 (15:02→19:17)
[2018-07-11] MEDS: PROCHLORPERAZINE 5 MG TABLET. PO PRN (16:00)
[2018-07-11] MEDS ORDERED: ALPRAZolam 0.25 MG TABLET PO PRN (16:15)
[2018-07-11] MEDS ORDERED: diphenhydrAMINE HCL 25 MG CAPSULE PO PRN (16:15)
[2018-07-11] MEDS: ALBUTEROL SULFATE 2.5 MG/3 ML NEBU. INH PRN (18:33)
[2018-07-11 19:57] VITALS: BP 124/79
[2018-07-11] MEDS: AMITRIPTYLINE HCL 25 MG TABLET. PO SCH (21:44)
[2018-07-11] MEDS: FERROUS SULFATE 325 MG TABLET. PO SCH (21:44)
[2018-07-11] MEDS: MONTELUKAST SODIUM 10 MG TABLET. PO SCH (21:45)
[2018-07-11] MEDS: PANTOPRAZOLE 40 MG TABLET.DR. PO SCH (21:45)
[2018-07-11] MEDS: ATORVASTATIN CALCIUM 40 MG TABLET. PO SCH (21:45)
[2018-07-11] MEDS: CETIRIZINE HCL 10 MG TABLET. PO SCH (21:45)
[2018-07-11] MEDS: DOCUSATE SODIUM 100 MG CAPSULE. PO SCH (21:45)
[2018-07-11] MEDS: PHENAZOPYRIDINE 200 MG TABLET. PO SCH (21:45)
[2018-07-11] MEDS: FLUOXETINE PO SCH (21:46)
[2018-07-11] MEDS: OLANZAPINE PO SCH (21:46)
[2018-07-11 23:58] VITALS: BP 132/89
[2018-07-12] MEDS: PIPERACILLIN/TAZOBACTAM 3.375 GM in IV NORMAL SALINE 50ML 50 ML IV SCH ×3 (00:35→12:08)
[2018-07-12] MEDS: MORPHINE SULFATE 2 MG/ML VIAL. IV PRN ×3 (02:18→15:25)
[2018-07-12] MEDS: PROCHLORPERAZINE 5 MG TABLET. PO PRN (02:26)
[2018-07-12 03:20] VITALS: BP 154/97
[2018-07-12 04:34] LABS: CALCIUM 8.9 mg/dL (8.5-10.1); POTASSIUM 3.8 mmol/L (3.5-5.1)
[2018-07-12] MEDS: methylPREDNISolone SOD SUCC PF 125 MG/2 ML VIAL. IV SCH ×2 (05:39→13:02)
[2018-07-12 07:00] VITALS: BP 168/98
--- NOTE | 2018-07-12 07:56 | CONS ---
DATE OF CONSULTATION: 07/11/2018 Mikael Cramer APRN dictating for Roderick Julio MD, Infectious Disease. REFERRING PHYSICIAN: Dr. Ventura. REASON FOR CONSULTATION: Pneumonia. HISTORY OF PRESENT ILLNESS: This patient is a 43-year-old female with a history of congestive heart failure, asthma, morbid obesity and a previous history of ESBL in the urine, who about 2 weeks ago was seen at an urgent care center for pneumonia and was given a prescription for clindamycin. The patient states she was initially feeling better, but had developed diarrhea, so she stopped taking the antibiotic. Over the last week or so, she has been having increased productive cough, worsening shortness of air and generalized weakness. On arrival to the ER, she was hypoxic requiring supplemental oxygen of 4 liters. A chest x-ray showed bilateral perihilar interstitial infiltrates greater on the left. Mild pulmonary vasculature congestion. She was afebrile with a white blood cell count of 11,400. Blood cultures were ordered. She is currently on Zosyn. ID has been asked to consult for further evaluation and antibiotic management. The patient denies having fevers, chills, sweats or body aches. She has had a headache for the past 4 days, similar to headaches in the past. She has been alternating naproxen and ibuprofen with some relief. She denies nasal/sinus congestion or sore throat. Denies chest pain or palpitations. She says she is still having a little bit of diarrhea, though not as much. Denies nausea, vomiting or cramps. She was seen in the ER about 5 days ago for cellulitis of the lower extremities for which she was taking Bactrim and Keflex. She denies ill contacts or recent traveling. She said she had 2 teeth pulled a couple days ago. PAST MEDICAL HISTORY: MDR/ESBL E. coli (sensitive only ertapenem, imipenem tested) in urine. ESBL E. coli bacteremia. Hypothyroidism, CVA without residual, peripheral neuropathy, congestive heart failure, hypercholesterolemia, asthma, sleep apnea and does not wear CPAP, GERD, history of urinary retention, fibromyalgia, arthritis, carpal tunnel syndrome, chronic back pain, bipolar disorder, ADHD, depression, anxiety, chronic lymphedema of lower extremities bilaterally. PAST SURGICAL HISTORY: Tooth extractions, cholecystectomy, lap band in 2008, gastric bypass in 2013, section, breast reduction. FAMILY HISTORY: Diabetes, CVA and hypertension. SOCIAL HISTORY: The patient lives at home. Nonsmoker. ALLERGIES: ERYTHROMYCIN, REACTION UNKNOWN, occurred in childhood. TETRACYCLINE, CAUSING HIVES, and THROAT SWELLING. MEDICATIONS: Zosyn, methylprednisolone, probiotics. Other medications are available and have been reviewed on the MAR. REVIEW OF SYSTEMS: As per HPI, otherwise all other review of systems are negative. PHYSICAL EXAMINATION: VITAL SIGNS: Temperature 98.6, blood pressure 134/84, heart rate 104, respiratory rate 18, pulse oximetry is 90% on 4 liters nasal cannula. GENERAL: The patient is propped up in bed, alert, no apparent distress. HEENT: Pupils equally round, reactive. Normal conjunctivae. Oral cavity: Pharynx pink and moist. Several missing teeth. Negative sinus tenderness. NECK: Supple. LUNGS: Clear to auscultation. HEART: S1, S2. ABDOMEN: Obese, soft, nontender with bowel sounds present. EXTREMITIES: Chronic lymphedema with slight erythema of the lower extremities bilaterally. No cyanosis. SKIN: Warm with generalized rash. NEUROLOGIC: Alert and oriented x 3. LABORATORY DATA: Today's WBC 10.4 from the 11.4; hemoglobin 8.7; platelets 203,000. Creatinine 1.1, BUN 12, sodium 146, potassium 3.4 from 2.7, total bilirubin 1.2, AST 18, ALT 17. Troponin less than 0.017. Procalcitonin 0.32. Blood cultures pending. Chest x-ray per HPI. IMPRESSION: 1. Pneumonia. She was previously on clindamycin, but quit due to development of diarrhea. 2. ALLERGY TO ERYTHROMYCIN, REACTION UNKNOWN and TETRACYCLINE with HIVES and THROAT SWELLING. 3. Diarrhea. 4. Pwhsp-jj-qwvsfpt heart failure. 5. History of multidrug resistance/extended-spectrum beta-lactamase Escherichia coli (sensitive only to ertapenem and imipenem tested) in urine. 6. Chronic lymphedema of lower extremities bilaterally. 7. Recent history of cellulitis of legs, treated apparently with Bactrim and Keflex. 8. Recent history of tooth extractions. 9. Hypothyroidism. 10. Obesity. PLAN: Continue Zosyn. She is currently on steroids. We will follow up on blood cultures. Monitor response. Thank you, Dr. Ventura, for asking us to participate in this patient's care. Should you have further questions or concerns, please call. RODERICK JULIO MD DR: Marilu JOB#: [id number] / [id number]
[2018-07-12] MEDS: SODIUM CHLORIDE 0.65% NASAL SPRAY 45ML BOTTLE. NS SCH (09:00)
[2018-07-12] MEDS: FLUTICASONE 50MCG/NASAL SPRAY 16GM BOTTLE. NS SCH (09:00)
[2018-07-12] MEDS: MUPIROCIN 2 % TOPICAL CREAM 30GM TUBE. TP SCH ×2 (09:00→13:02)
[2018-07-12] MEDS: PHENAZOPYRIDINE 200 MG TABLET. PO SCH ×2 (09:53→12:09)
[2018-07-12] MEDS: POTASSIUM CHLORIDE 20 MEQ TABLET.ER. PO SCH ×2 (09:54→12:08)
[2018-07-12] MEDS: MORPHINE ER 15 MG TABLET.ER PO SCH (09:54)
[2018-07-12] MEDS: LACTOBACILLUS RHAMNOSUS GG 1 CAPSULE. PO SCH (09:54)
[2018-07-12] MEDS: ASPIRIN 325 MG TABLET PO SCH (09:55)
[2018-07-12] MEDS: busPIRone 10 MG TABLET. PO SCH ×2 (09:55→13:02)
[2018-07-12] MEDS: PREGABALIN 75 MG CAPSULE PO SCH (09:55)
[2018-07-12] MEDS: FUROSEMIDE 40 MG TABLET. PO SCH ×2 (09:55→13:02)
[2018-07-12] MEDS: MULTIVITAMIN with MINERAL TABLET. PO SCH (09:55)
[2018-07-12] MEDS: ENOXAPARIN 40 MG/0.4 ML SYRINGE. SQ SCH (09:55)
[2018-07-12] MEDS: IRON POLYSACCHARIDE COMPLEX 150 MG CAPSULE PO SCH (09:57)
--- NOTE | 2018-07-12 10:46 | RAD ---
AP portable chest radiograph 07/12/2018 Clinical History: Edema. Shortness of breath. An AP erect portable digital radiograph of the chest was obtained. Comparison study is dated 07/10/2018. The cardiac silhouette is borderline enlarged. The thoracic aorta is mildly tortuous. Bilateral perihilar infiltrates are seen which appear increased slightly. No pneumothorax or pleural effusion is noted. The osseous structures are unchanged. Impression: Slight interval improvement in the bilateral perihilar infiltrates. Electronically signed by: John Mccoy MD (07/12/2018 10:43 AM) [facility]
[2018-07-12 11:00] VITALS: BP 145/92
[2018-07-12] MEDS ORDERED: LEVO750T31 PO (11:20)
--- NOTE | 2018-07-12 11:22 | PDOC3 ---
Discharge Summary Visit Information Date of Admission: July 10, 2018 Date of Discharge: July 12, 2018 Admitting Diagnosis Comment: 1. Acute hypoxemic respiratory failure. 2. Abnormal x-ray compatible with acute on chronic heart failure, suspect diastolic. 3. Pneumonia, treated as an outpatient, failed outpatient treatment. 4. Morbid obesity. 5. Other comorbidities including asthma, fibromyalgia, gastroesophageal reflux and chronic cellulitis of the lower extremities. Final Diagnosis Problems Medical Problems: (1) Bilateral pneumonia Status: Acute (2) Hypoxia Status: Acute Brief Hospital Course Allergies Allergies Coded Allergies Type Severity Reaction Last Updated Verified adhesive tape Allergy Intermediate SKIN SENSITIVITY 02/09/18 Yes aspartame Allergy Intermediate 02/09/18 Yes erythromycin base Allergy Intermediate 02/09/18 Yes jannie Allergy Intermediate Rash 02/09/18 Yes tetracycline Allergy Intermediate 02/09/18 Yes walnut Allergy Intermediate 02/09/18 Yes I S O L A T I O N *CONTACT* Allergy Unknown 02/09/18 Yes Vital Signs Vital Signs Date Time Temp Pulse Resp B/P (MAP) Pulse Ox O2 Delivery O2 Flow Rate FiO2 07/12/18 08:00 Nasal Cannula 4.0 07/12/18 07:00 98.4 103 16 168/98 (121) 92 98.4 Lab Results Laboratory Tests Test 07/10/18 14:10 07/10/18 18:10 07/10/18 21:30 07/11/18 03:55 White Blood Count 11.4 x10^3/uL (4.0-11.0) 10.4 x10^3/uL (4.0-11.0) Red Blood Count 2.81 x10^6/uL (3.50-5.40) 2.89 x10^6/uL (3.50-5.40) Hemoglobin 8.4 g/dL (12.0-15.5) 8.7 g/dL (12.0-15.5) Hematocrit 26.9 % (36.0-47.0) 27.9 % (36.0-47.0) Mean Corpuscular Volume 96 fL (79-100) 97 fL (79-100) Mean Corpuscular Hemoglobin 30 pg (25-35) 30 pg (25-35) Mean Corpuscular Hemoglobin Concent 31 g/dL (31-37) 31 g/dL (31-37) Red Cell Distribution Width 15.4 % (11.5-14.5) 15.5 % (11.5-14.5) Platelet Count 197 x10^3/uL (140-400) 203 x10^3/uL (140-400) Neutrophils (%) (Auto) 75 % (31-73) 93 % (31-73) Lymphocytes (%) (Auto) 14 % (24-48) 4 % (24-48) Monocytes (%) (Auto) 7 % (0-9) 3 % (0-9) Eosinophils (%) (Auto) 4 % (0-3) 0 % (0-3) Basophils (%) (Auto) 0 % (0-3) 0 % (0-3) Neutrophils # (Auto) 8.6 x10^3uL (1.8-7.7) 9.6 x10^3uL (1.8-7.7) Lymphocytes # (Auto) 1.6 x10^3/uL (1.0-4.8) 0.5 x10^3/uL (1.0-4.8) Monocytes # (Auto) 0.7 x10^3/uL (0.0-1.1) 0.3 x10^3/uL (0.0-1.1) Eosinophils # (Auto) 0.5 x10^3/uL (0.0-0.7) 0.0 x10^3/uL (0.0-0.7) Basophils # (Auto) 0.0 x10^3/uL (0.0-0.2) 0.0 x10^3/uL (0.0-0.2) D-Dimer (Terri) 0.53 ug/mlFEU (0.00-0.50) Sodium Level 141 mmol/L (136-145) 146 mmol/L (136-145) Potassium Level 2.7 mmol/L (3.5-5.1) 3.4 mmol/L (3.5-5.1) Chloride Level 102 mmol/L (98-107) 107 mmol/L (98-107) Carbon Dioxide Level 31 mmol/L (21-32) 31 mmol/L (21-32) Anion Gap 8 (6-14) 8 (6-14) Blood Urea Nitrogen 15 mg/dL (7-20) 12 mg/dL (7-20) Creatinine 1.1 mg/dL (0.6-1.0) 1.1 mg/dL (0.6-1.0) Estimated GFR (Cockcroft-Gault) 53.7 53.7 Glucose Level 110 mg/dL (70-99) 154 mg/dL (70-99) Calcium Level 8.4 mg/dL (8.5-10.1) 8.6 mg/dL (8.5-10.1) Total Bilirubin 1.2 mg/dL (0.2-1.0) Direct Bilirubin 0.5 mg/dL (0.0-0.2) Aspartate Amino Transf (AST/SGOT) 18 U/L (15-37) Alanine Aminotransferase (ALT/SGPT) 17 U/L (14-59) Alkaline Phosphatase 148 U/L (46-116) Troponin I Quantitative < 0.017 ng/mL (0.000-0.055) < 0.017 ng/mL (0.000-0.055) < 0.017 ng/mL (0.000-0.055) ZY-Tnl-Q-Type Natriuretic Peptide 791 pg/mL (0-124) Total Protein 6.2 g/dL (6.4-8.2) Albumin 2.7 g/dL (3.4-5.0) Lipase 45 U/L (73-393) Procalcitonin 0.32 ng/mL (0.00-0.10) Segmented Neutrophils % 91 % (35-66) Lymphocytes % 8 % (24-48) Monocytes % 1 % (0-10) Platelet Estimate Adequate (ADEQUATE) Polychromasia Present Anisocytosis Present Test 07/12/18 03:38 Sodium Level 145 mmol/L (136-145) Potassium Level 3.8 mmol/L (3.5-5.1) Chloride Level 106 mmol/L (98-107) Carbon Dioxide Level 30 mmol/L (21-32) Anion Gap 9 (6-14) Blood Urea Nitrogen 10 mg/dL (7-20) Creatinine 1.0 mg/dL (0.6-1.0) Estimated GFR (Cockcroft-Gault) 60.0 Glucose Level 145 mg/dL (70-99) Calcium Level 8.9 mg/dL (8.5-10.1) Laboratory Tests Test 07/12/18 03:38 Sodium Level 145 mmol/L (136-145) Potassium Level 3.8 mmol/L (3.5-5.1) Chloride Level 106 mmol/L (98-107) Carbon Dioxide Level 30 mmol/L (21-32) Anion Gap 9 (6-14) Blood Urea Nitrogen 10 mg/dL (7-20) Creatinine 1.0 mg/dL (0.6-1.0) Estimated GFR (Cockcroft-Gault) 60.0 Glucose Level 145 mg/dL (70-99) Calcium Level 8.9 mg/dL (8.5-10.1) Brief Hospital Course Ms. Lord is a 43 old obese female tends to be a frequent flyer and narcotic dependent comes in with maybe because of signs of beginning pneumonia. Comanage with ID. David for Levaquin to home. She follows with pain management for her all pain meds and she has an appointment Friday and she does not want to miss it Rx Levaquin Otherwise no pain medicine Rx I have discharged with dc < 30 COnsults: ID Proc; none Discharge Information Condition at Discharge: Improved, Stable Follow Up: Weeks (pcp prn if no better) Disposition/Orders: D/C to Home Scheduled Amitriptyline Hcl (Amitriptyline Hcl) 100 Mg Tablet, 1-2 TAB PO QHS, #30 Ref 1 (Reported) Entered as Reported by: TOBIAS BENTON on 07/01/15 1021 Last Action: Reviewed on 07/10/181915 by GABBY SETHI Aspirin (Aspirin) 325 Mg Tablet, [facility] Prescribed by: EZEQUIEL RUDD MD on 07/11/15 1358 Last Action: Reviewed on 07/10/181915 by GABBY SETHI Atorvastatin Calcium (Atorvastatin Calcium) 40 Mg Tablet, 1 TAB PO DAILY, #30 Ref 5 (Reported) Entered as Reported by: DANIELLE REYNOLDS RN on 11/05/17 2212 Last Action: Reviewed on 07/10/181915 by GABBY SETHI Buspirone Hcl (Buspirone Hcl) 10 Mg Tablet, 10 MG PO TID, (Reported) Entered as Reported by: DAVINA SALDANA on 03/26/17 1512 Last Action: Reviewed on 07/10/181915 by GABBY SETHI Cetirizine Hcl (Zyrtec) 10 Mg Tablet, 10 MG PO HS, (Reported) Entered as Reported by: DANIELLE REYNOLDS RN on 11/05/172211 Last Action: Reviewed on 07/10/181915 by GABBY SETHI Docusate Sodium (Colace) 100 Mg Capsule, 300 MG PO HS, (Reported) Entered as Reported by: DANIELLE REYNOLDS RN on 11/05/172211 Last Action: Reviewed on 07/10/181915 by GABBY Espinosaacidoph & Paracasei,B.lactis (Probiotic) 1 Each Capsule, 1 EACH PO DAILY, (Reported) Entered as Reported by: DANIELLE REYNOLDS RN on 11/05/172211 Last Action: Reviewed on 07/10/181915 by GABBY SETHI Lansoprazole (Prevacid) 15 Mg Capsule.dr, 15 MG PO QHS, (Reported) Entered as Reported by: LUCIO SANDOVAL on 03/22/13505 Last Action: Reviewed on 07/10/181915 by GABBY SETHI Levofloxacin (Levaquin) 750 Mg Tablet, 1 TAB PO DAILY for cAp, #7 Prescribed by: JOAQUIN HERNANDEZ on 07/12/18 1120 Levothyroxine Sodium (Levothyroxine Sodium) 75 Mcg Tablet, 75 MCG PO DAILY06, (Reported) Entered as Reported by: LUCIO SANDOVAL on 03/22/13 050 Last Action: Reviewed on 07/10/181915 by GABBY SETHI Melatonin (Melatonin) 3 Mg Tablet, 10 MG PO HS, (Reported) Entered as Reported by: GONZALO BARRY on 10/28/16 184 Last Action: Reviewed on 07/10/181915 by GABBY SETHI Montelukast Sodium (Singulair Tablet) 10 Mg Tablet, 10 MG PO QHS, (Reported) Entered as Reported by: LUCIO SANDOVAL on 03/22/13505 Last Action: Reviewed on 07/10/181915 by GABBY SETHI Morphine Sulfate (Morphine Sulfate Er) 30 Mg Tablet.er, 30 MG PO Q12HR for PAIN, (Reported) Entered as Reported by: MAGAN EMERSON on 07/10/182044 Last Action: Continued on 07/10/182049 by MAGAN EMERSON Multivitamin (Multivitamins) 1 Each Tablet, 1 TAB PO DAILY, #90 Ref 3 (Reported) Entered as Reported by: GONZALO BARRY on 10/28/16 1849 Last Action: Reviewed on 07/10/181915 by GABBY SETHI Naproxen (Naproxen) 500 Mg Tablet, 1 TAB PO BID, #60 Ref 1 (Reported) Entered as Reported by: TOBIAS BENTON on 07/01/15 1021 Last Action: HELD on 07/11/181941 by Veronica Ramirez RN Olanzapine/Fluoxetine Hcl (Olanzapine-Fluoxetine 12-25 Mg) 1 Each Capsule, 1 EACH PO HS, (Reported) Entered as Reported by: MANOJ ORTEGA on 01/29/16 2333 Last Action: Reviewed on 07/10/181915 by GABBY SETHI Oxycodone Hcl/Acetaminophen (Oxycodone-Acetaminophen 10-325) 1 Each Tablet, 10 MG PO BID for Pain, (Reported) Entered as Reported by: MAGAN EMERSON on 07/10/182044 Last Action: Continued on 07/10/182049 by MAGAN EMERSON Phenazopyridine Hcl (Phenazopyridine Hcl) 200 Mg Tablet, 1 TAB PO TIDPC, #9 (Reported) Entered as Reported by: GONZALO BARRY on 01/03/17 1703 Last Taken: Unknown Dose on 07/11/18 1400 Last Action: Converted on 07/11/181941 by Veronica Ramirez RN Potassium Chloride (Potassium Chloride) 20 Meq Tablet.er, 20 MEQ PO TID, (Reported) Entered as Reported by: DANIELLE RYENOLDS RN on 11/05/17 2212 Last Action: Reviewed on 07/10/181915 by GABBY SETHI Pregabalin (Lyrica) 150 Mg Capsule, 1 CAP PO TID, #60 Ref 5 (Reported) Entered as Reported by: GONZALO BARRY on 10/29/16 1348 Last Action: Reviewed on 07/10/181915 by GABBY SETHI Sodium Chloride (Saline Nasal [place]) 30 Ml [place], 1 SPRAY NS BID, #60 (Reported) Entered as Reported by: DANIELLE REYNOLDS RN on 11/05/172211 Last Action: Reviewed on 07/10/181915 by GABBY SETHI Tizanidine Hcl (Tizanidine Hcl) 4 Mg Tablet, 1 TAB PO TID, #90 (Reported) Entered as Reported by: TOBIAS BENTON on 07/01/15 1021 Last Action: HELD on 07/11/181941 by Veronica Ramirez RN Scheduled PRN Albuterol Sulfate (Proair Hfa Inhaler) 8.5 Gm Hfa.aer.ad, 1 PUFF INH PRN Q6HRS PRN for SHORTNESS OF BREATH, Ref 0 (Reported) Entered as Reported by: MANOJ ORTEGA on 01/29/160 Last Action: Continued on 07/10/181648 by XOCHITL MAGANA MD Calcium Carbonate/Simethicone ([place] Heartburn+Gas) 1 Each Tab.chew, 2 E ACH PO PRN 3-4XDAILY PRN for INDIGESTION, (Reported) Entered as Reported by: DANIELLE REYNOLDS RN on 11/05/172211 Last Action: Reviewed on 07/10/181915 by GABBY SETHI Prochlorperazine Maleate (Prochlorperazine Maleate) 10 Mg Tablet, 1 TAB PO PRN TID PRN for NAUSEA, #30 Ref 3 (Reported) Entered as Reported by: TOBIAS BENTON on 07/01/15 1021 Last Action: Reviewed on 07/10/181915 by GABBY SETHI Discontinued Medications Morphine Sulfate (Morphine Sulfate) 15 Mg Tablet, 1 TAB PO BID for pain, #60 (Reported) Entered as Reported by: GABBY SETHI on 07/10/181915 Last Action: Discontinued on 07/10/182049 by JOAQUIN SUE MD July 12, 2018 11:22
--- NOTE | 2018-07-12 11:58 | PDOC ---
Infectious Disease Note Subjective Subjective Feeling better, less SOA and cough Increase O2 requirements, now on 8L No fevers/chills last 24 hours Little bit diarrhea Denies N/V ROS ROS per HPI Vital Sign Vital Signs Vital Signs Date Time Temp Pulse Resp B/P (MAP) Pulse Ox O2 Delivery O2 Flow Rate FiO2 07/12/18 08:00 Nasal Cannula 4.0 07/12/18 07:00 98.4 103 16 168/98 (121) 92 98.4 Physical Exam PHYSICAL EXAM GENERAL: Propped up in bed, alert, no apparent distress. HEENT: Pupils equally round, reactive. Normal conjunctivae. Oral cavity: Pharynx pink and moist. Several missing teeth. NECK: Supple. LUNGS: Clear to auscultation. HEART: S1, S2. ABDOMEN: Obese, soft, nontender with bowel sounds present. EXTREMITIES: Chronic lymphedema with slight erythema of the lower extremities bilaterally. No cyanosis. SKIN: Warm with generalized rash. NEUROLOGIC: Alert and oriented x 3. Labs Lab Laboratory Tests Test 07/12/18 03:38 Sodium Level 145 mmol/L (136-145) Potassium Level 3.8 mmol/L (3.5-5.1) Chloride Level 106 mmol/L (98-107) Carbon Dioxide Level 30 mmol/L (21-32) Anion Gap 9 (6-14) Blood Urea Nitrogen 10 mg/dL (7-20) Creatinine 1.0 mg/dL (0.6-1.0) Estimated GFR (Cockcroft-Gault) 60.0 Glucose Level 145 mg/dL (70-99) Calcium Level 8.9 mg/dL (8.5-10.1) CXR, 07/12. Slight interval improvement in the bilateral perihilar infiltrates. Micro Microbiology 07/10/18 Blood Culture - Preliminary, Resulted NO GROWTH AFTER 1 DAY Objective Assessment Pneumonia -Previously on outpatient Clindamycin, quit d/t diarrhea Allergy erythromycin (unknown) and tetracycline w/ hives and throat swelling Diarrhea, improved Acute on chronic heart failure 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 Recent h/o cellulitis of legs, treated Bactrim and Keflex she says Recent h/o teeth extractions Hypothyroidism Obesity Plan Plan of Care Continue Zosyn Steroids BC neg so far Sputum culture not collected yet Still requiring supplemental O2 D/w Dr. Fenton Patient seen and examined. Chart reviewed in detail. Case discussed with HUMANITIES TEACHER. Agree with above plan. DOROTEO RODRIGUEZ APRN July 12, 2018 11:58 HAI JULIO MD July 12, 2018 18:53
[2018-07-12] MEDS: oxyCODONE/APAP 10/325 1 TAB TABLET PO PRN (12:13)
--- NOTE | 2018-07-12 14:51 | PDOC ---
PULMONARY PROGRESS NOTES Subjective PT LESS SOA Vitals Vital Signs Date Time Temp Pulse Resp B/P (MAP) Pulse Ox O2 Delivery O2 Flow Rate FiO2 07/12/18 11:00 98.7 110 24 145/92 (109) 92 Nasal Cannula 4.0 98.7 ROS: No Nausea, No Chest Pain, No Abdominal Pain, No Increase Cough General: Alert, No acute distress Lungs: Crackles Cardiovascular: S1 Abdomen: Soft, Non-tender Neuro Exam: Alert Extremities: No Edema Skin: Warm, Other (CELLULITIS) Labs Laboratory Tests Test 07/10/18 18:10 07/10/18 21:30 07/11/18 03:55 07/12/18 03:38 Troponin I Quantitative < 0.017 ng/mL (0.000-0.055) < 0.017 ng/mL (0.000-0.055) Procalcitonin 0.32 ng/mL (0.00-0.10) White Blood Count 10.4 x10^3/uL (4.0-11.0) Red Blood Count 2.89 x10^6/uL (3.50-5.40) Hemoglobin 8.7 g/dL (12.0-15.5) Hematocrit 27.9 % (36.0-47.0) Mean Corpuscular Volume 97 fL (79-100) Mean Corpuscular Hemoglobin 30 pg (25-35) Mean Corpuscular Hemoglobin Concent 31 g/dL (31-37) Red Cell Distribution Width 15.5 % (11.5-14.5) Platelet Count 203 x10^3/uL (140-400) Neutrophils (%) (Auto) 93 % (31-73) Lymphocytes (%) (Auto) 4 % (24-48) Monocytes (%) (Auto) 3 % (0-9) Eosinophils (%) (Auto) 0 % (0-3) Basophils (%) (Auto) 0 % (0-3) Neutrophils # (Auto) 9.6 x10^3uL (1.8-7.7) Lymphocytes # (Auto) 0.5 x10^3/uL (1.0-4.8) Monocytes # (Auto) 0.3 x10^3/uL (0.0-1.1) Eosinophils # (Auto) 0.0 x10^3/uL (0.0-0.7) Basophils # (Auto) 0.0 x10^3/uL (0.0-0.2) Segmented Neutrophils % 91 % (35-66) Lymphocytes % 8 % (24-48) Monocytes % 1 % (0-10) Platelet Estimate Adequate (ADEQUATE) Polychromasia Present Anisocytosis Present Sodium Level 146 mmol/L (136-145) 145 mmol/L (136-145) Potassium Level 3.4 mmol/L (3.5-5.1) 3.8 mmol/L (3.5-5.1) Chloride Level 107 mmol/L (98-107) 106 mmol/L (98-107) Carbon Dioxide Level 31 mmol/L (21-32) 30 mmol/L (21-32) Anion Gap 8 (6-14) 9 (6-14) Blood Urea Nitrogen 12 mg/dL (7-20) 10 mg/dL (7-20) Creatinine 1.1 mg/dL (0.6-1.0) 1.0 mg/dL (0.6-1.0) Estimated GFR (Cockcroft-Gault) 53.7 60.0 Glucose Level 154 mg/dL (70-99) 145 mg/dL (70-99) Calcium Level 8.6 mg/dL (8.5-10.1) 8.9 mg/dL (8.5-10.1) Laboratory Tests Test 07/12/18 03:38 Sodium Level 145 mmol/L (136-145) Potassium Level 3.8 mmol/L (3.5-5.1) Chloride Level 106 mmol/L (98-107) Carbon Dioxide Level 30 mmol/L (21-32) Anion Gap 9 (6-14) Blood Urea Nitrogen 10 mg/dL (7-20) Creatinine 1.0 mg/dL (0.6-1.0) Estimated GFR (Cockcroft-Gault) 60.0 Glucose Level 145 mg/dL (70-99) Calcium Level 8.9 mg/dL (8.5-10.1) Medications Active Scripts Medications Dose Route/Sig Max Daily Dose Days Date Category Dose Instructions Diflucan (Fluconazole) 150 Mg Tablet 1 Tab PO ONCE 07/05/18 Rx Cephalexin 500 Mg Capsule 1 Cap PO QID 07/05/18 Rx Bactrim Ds Tablet (Sulfamethoxazole/Trimethoprim) 1 Each Tablet 1 Tab PO BID 07/05/18 Rx Bactroban Cream (Mupirocin) 15 Gm Cream..g. 1 Devendra TP TID 05/12/18 Rx Diclofenac Sodium 50 Mg Tablet.dr 1 Tab PO BID 05/12/18 Rx Lidocaine 1 Each Adh..patch 1 Each TP Q12HR PRN 03/25/18 Rx Remove patch in 12 hours and reapply if needed. Oxymorphone Hcl 30 Mg Tab.er.12h 30 Mg PO BID 11/05/17 Reported Zyrtec (Cetirizine Hcl) 10 Mg Tablet 10 Mg PO HS 11/05/17 Reported Saline Nasal [place] (Sodium Chloride) 30 Ml [place] 1 [place] NS BID 11/05/17 Reported Probiotic (L.acidoph & Paracasei,B.lactis) 1 Each Capsule 1 Each PO DAILY 11/05/17 Reported [place] Heartburn+Gas (Calcium Carbonate/Simethicone) 1 Each Tab.chew 2 Each PO PRN 3-4XDAILY PRN 11/05/17 Reported Colace (Docusate Sodium) 100 Mg Capsule 300 Mg PO HS 11/05/17 Reported Potassium Chloride 20 Meq Tablet.er 20 Meq PO TID 11/05/17 Reported Atorvastatin Calcium 40 Mg Tablet 1 Tab PO DAILY 11/05/17 Reported Ferrous Sulfate 325 Mg Tablet 1 Tab PO HS 11/05/17 Reported Buspirone Hcl 10 Mg Tablet 10 Mg PO TID 03/26/17 Reported Phenazopyridine Hcl 200 Mg Tablet 1 Tab PO TIDPC 01/03/17 Reported Lyrica (Pregabalin) 150 Mg Capsule 1 Cap PO TID 10/29/16 Reported Budesonide Nasal [place] (Budesonide) 8.6 Gm [place].pump 1 [place] NS BID 10/28/16 Reported Benadryl (Diphenhydramine Hcl) 25 Mg Capsule 3 Cap PO TID 10/28/16 Reported Melatonin 3 Mg Tablet 10 Mg PO HS 10/28/16 Reported Multivitamins (Multivitamin) 1 Each Tablet 1 Tab PO DAILY 10/28/16 Reported Proair Hfa Inhaler (Albuterol Sulfate) 8.5 Gm Hfa.aer.ad 1 Puff INH PRN Q6HRS PRN 01/29/16 Reported Olanzapine-Fluoxetine 12-25 Mg (Olanzapine/Fluoxetine Hcl) 1 Each Capsule 1 Each PO HS 01/29/16 Reported Furosemide 40 Mg Tablet 40 Mg PO BID 01/29/16 Reported Aspirin 325 Mg Tablet 325 Mg PO DAILYWBKFT 07/11/15 Rx Naproxen 500 Mg Tablet 1 Tab PO BID 07/01/15 Reported Amitriptyline Hcl 100 Mg Tablet 1-2 Tab PO QHS 07/01/15 Reported Tizanidine Hcl 4 Mg Tablet 1 Tab PO TID 07/01/15 Reported Prochlorperazine Maleate 10 Mg Tablet 1 Tab PO PRN TID PRN 07/01/15 Reported Levothyroxine Sodium 75 Mcg Tablet 75 Mcg PO DAILY06 03/22/13 Reported Singulair Tablet (Montelukast Sodium) 10 Mg Tablet 10 Mg PO QHS 03/22/13 Reported Prevacid (Lansoprazole) 15 Mg Capsule. 15 Mg PO QHS 03/22/13 Reported Impression . IMPRESSION: 1. Acute hypoxemic respiratory failure. 2. Abnormal x-ray compatible with acute on chronic heart failure, suspect diastolic. 3. Pneumonia, treated as an outpatient, failed outpatient treatment. 4. Morbid obesity. 5. Other comorbidities including asthma, fibromyalgia, gastroesophageal reflux and chronic cellulitis of the lower extremities. Plan . CXR NOTED D/W DR GARY D/C HOME ON [facility] FOLLOW UP IN MY OFFICE ECHO OUT PT ANIBX PER ID NEEDS 3 L AT REST AND 6 WITH EXERTION TRICIA GARCIA MD July 12, 2018 14:51
[2018-07-12 15:57] VITALS: BP 165/100
--- NOTE | 2018-07-12 16:00 | NUR ---
Pt discharged to home with home health via wheelchair, accompanied by family member. Pt discharged with home oxygen from [facility] and was directed to call them as soon as the patient arrives home. Directions given to make a F/U with Dr. Richardson in two weeks, and to F/U with PCP as needed. Home medications returned to patient in black bag. All questions answered and patient verbalized understanding.
== END 2018-07-12 16:53 | disposition home or self-care (01) | DRG 291 ==
LOC: ER 13:36 → 6 SOUTH 15:15
PROVIDERS: ADMIT Family Medicine; ATTEND Family Medicine
DX: I50.33 Acute on chronic diastolic (congestive) heart failure (principal); J18.9 Pneumonia, unspecified organism; J96.01 Acute respiratory failure with hypoxia; L03.115 Cellulitis of right lower limb; L03.116 Cellulitis of left lower limb; F11.20 Opioid dependence, uncomplicated; D64.9 Anemia, unspecified; E03.9 Hypothyroidism, unspecified; E66.01 Morbid (severe) obesity due to excess calories; E78.00 Pure hypercholesterolemia, unspecified; E78.5 Hyperlipidemia, unspecified; E87.6 Hypokalemia; F31.9 Bipolar disorder, unspecified; I89.0 Lymphedema, not elsewhere classified; F32.9 Major depressive disorder, single episode, unspecified; G43.909 Migraine, unspecified, not intractable, without status migrainosus; F41.9 Anxiety disorder, unspecified; M19.90 Unspecified osteoarthritis, unspecified site; J45.909 Unspecified asthma, uncomplicated; K21.9 Gastro-esophageal reflux disease without esophagitis; K58.9 Irritable bowel syndrome, unspecified; M79.7 Fibromyalgia; N30.10 Interstitial cystitis (chronic) without hematuria; Z82.3 Family history of stroke; Z82.49 Family history of ischemic heart disease and other diseases of the circulatory system; Z86.19 Personal history of other infectious and parasitic diseases; Z86.73 Personal history of transient ischemic attack (TIA), and cerebral infarction without residual deficits; Z90.710 Acquired absence of both cervix and uterus; Z98.84 Bariatric surgery status; Z88.1 Allergy status to other antibiotic agents; Z83.3 Family history of diabetes mellitus; Z88.8 Allergy status to other drugs, medicaments and biological substances; Z91.048 Other nonmedicinal substance allergy status
CPT/HCPCS: 36415; 71045; 80048; 80076; 83690; 83880; 84145; 84484; 85007; 85025; 85379; 87040; 93005; 94618; 94640; 96365; J1650; J2270; J2405; J2543; J2930; J7030; J7613; J7620; Q0164; 99285-25

== ENCOUNTER → 2018-07-16 | Outpatient (CLI) | payer MEDICARE ==
[2018-07-12 15:57] VITALS: BP 165/100
[~2018-07-16] MED LIST changes: +MORP15TA PO; +OXYC-411 PO
--- NOTE | 2018-07-16 13:12 | KCIC ---
Two-view chest dated 07/16/2018. Comparison made to 07/12/2018. Clinical data indication: Shortness of breath for one week. Chest tightness. FINDINGS: PA and lateral views the chest were obtained. Heart and mediastinal contours are stable. There is patchy perihilar airspace disease that has somewhat increased from the prior exam. No consolidation or pleural effusion. No pneumothorax. Prominent interstitial markings impression: 1. Increasing perihilar airspace disease, edema versus pneumonia. Electronically signed by: Lester Bautista MD (07/16/2018 1:09 PM) [facility]
== END | disposition home or self-care (01) ==
LOC: KCIC 12:39
PROVIDERS: ATTEND Internal Medicine Pulmonary Disease
DX: J98.4 Other disorders of lung (principal); I50.9 Heart failure, unspecified
CPT/HCPCS: 71046

== ENCOUNTER → 2019-01-18 | Outpatient (CLI) | payer MEDICARE ==
[~2019-01-18] MED LIST changes: +LIDO700A21 TP; -LIDO700A39 TP; -MELA3TAB2 PO; +MELA3TAB56 PO; +MONT10TA49 PO; -MONT10TA6 PO; +MORP-16 PO; -MORP30TA3 PO; -TIZA4TAB PO; +TIZA4TAB2 PO
--- NOTE | 2019-01-18 14:59 | KCIC ---
EXAM: 1. CT CERVICAL SPINE WITHOUT CONTRAST. 2. CT THORACIC SPINE WITHOUT CONTRAST. 3. CT LUMBAR SPINE WITHOUT CONTRAST. HISTORY: Neck stiffness, neck and back pain, right lower extremity radiculopathy, headaches. TECHNIQUE: Computed tomography of the cervical, thoracic and lumbar spine was performed without intravenous contrast. COMPARISON: None. FINDINGS: Cervical spine: There is 2 mm anterolisthesis at C5-6. There is moderate osteoarthritis at C1-2. No fractures are identified. Intervertebral disc heights are maintained. There is no prevertebral soft tissue swelling. There is no clear central canal stenosis or neural foraminal stenosis. Small posterior disc bulges abut the anterior cord at multiple levels without clear deformity, mostly from congenitally short pedicles. There is no clear osseous neural foraminal stenosis. Cervical spine impression: 1. Slight anterolisthesis at C5-C6 is likely degenerative. 2. Moderate osteoarthritis at C1-2. 3. No clearly significant central canal stenosis or neural foraminal stenosis by CT. MRI is more sensitive if there is persistent concern. Thoracic spine: A minimal lower thoracic dextrocurvature is within normal limits. There is mild lower thoracic degenerative disc disease. Minimal superior plate depression at T7 does not appear acute. No acute fractures are identified. Facet osteoarthritis is mild to moderate within the mid and lower thoracic spine. This results in multifocal bilateral mild to moderate neural foraminal stenosis from T3 through T11. There is no clear central canal stenosis. Mosaic attenuation suggests small airways disease and mixed air trapping/atelectasis. Thoracic spine impression: 1. No acute fractures. 2. Mild lower thoracic degenerative disc disease. 3. Multifocal mild to moderate facet osteoarthritis results in multifocal mild to moderate bilateral neural foraminal stenosis from T3 through T11. 4. Mosaic attenuation. Correlate for small airways disease. Lumbar spine: The alignment of the lumbar spine is normal. Intervertebral disc heights are maintained. No fractures are identified. There are small posterior disc bulges from a L2-L4. There is no central canal stenosis or neural foraminal stenosis. Lobulation of the left kidney suggests cortical scarring at the upper pole. There are mild atherosclerotic calcifications. Lumbar spine impression: 1. Unremarkable examination of the lumbar spine. No central canal stenosis or neural foraminal stenosis. *One or more of the following individualized dose reduction techniques were utilized for this examination: 1. Automated exposure control. 2. Adjustment of the mA and/or kV according to patient size. 3. Use of iterative reconstruction technique. Electronically signed by: Cheo Keita MD (01/18/2019 2:56 PM) [facility]
== END | disposition home or self-care (01) ==
LOC: KCIC CT 11:46
PROVIDERS: ATTEND Family Medicine
DX: M47.813 Spondylosis without myelopathy or radiculopathy, cervicothoracic region (principal); M43.12 Spondylolisthesis, cervical region; M51.34 Other intervertebral disc degeneration, thoracic region; M48.04 Spinal stenosis, thoracic region; G89.29 Other chronic pain
CPT/HCPCS: 72125; 72128; 72131

== ENCOUNTER → 2019-04-26 | Outpatient (CLI) | payer MEDICARE ==
[~2019-04-26] MED LIST changes: -CETI10TA22 PO; +CETI10TA24 PO; -POTA20TA82 PO
--- NOTE | 2019-04-26 13:39 | KCIC ---
EXAM: Bilateral digital screening mammogram with tomosynthesis. HISTORY: 44-year-old female presents for screening mammography. TECHNIQUE: Full-field digital craniocaudal and mediolateral oblique 2D and 3D tomosynthesis images of both breasts are obtained for evaluation. Computer aided detection with [employer] software version 9.3 was applied. COMPARISON: 12/25/2015 BREAST PARENCHYMAL DENSITY: Level A - Mostly fat. FINDINGS: There is no new suspicious mass, microcalcification or region of architectural distortion. IMPRESSION: BI-RADS Category 2: Benign finding(s). RECOMMENDATION: Annual mammography is recommended. If your mammogram demonstrates that you have dense breast tissue, which could hide abnormalities, and if you have other risk factors for breast cancer that have been identified, you might benefit from supplemental screening tests that may be suggested by your ordering physician. Dense breast tissue, in and of itself, is a relatively common condition. This information is not provided to cause undue concern, but rather to raise your awareness and to promote discussion with your physician regarding the presence of other risk factors, in addition to dense breast tissue. A report of your mammography results will be sent to you and your physician. You should contact your physician if you have any questions or concerns regarding this report. Mammography is a sensitive method for finding small breast cancers, but it does not detect them all and is not a substitute for careful clinical examination. A negative mammogram does not negate a clinically suspicious finding and should not result in delay in biopsying a clinically suspicious abnormality. PQRS compliance statement - Patient information was entered into a reminder system with a target due date for the next mammogram. "Our facility is accredited by the [employer] Mammography Program." Electronically signed by: Deborah Batres MD (04/26/2019 1:36 PM) [facility]
== END ==
LOC: KCIC MAMMO 11:18
PROVIDERS: ATTEND Obstetrics & Gynecology
DX: Z12.31 Encounter for screening mammogram for malignant neoplasm of breast (principal); Z80.3 Family history of malignant neoplasm of breast
CPT/HCPCS: 77063; 77067

== ENCOUNTER → 2019-04-30 | Outpatient (CLI) | payer MEDICARE ==
[~2019-04-30] MED LIST changes: +MELA3TAB4 PO; -MELA3TAB56 PO
--- NOTE | 2019-04-30 12:45 | KCIC ---
MRI Cervical Spine Without Contrast History: Chronic neck pain, back pain, pain into the hips and legs Technique: Multiplanar, multi sequential noncontrast MR imaging was performed of the cervical spine. Comparison: None Findings: There is significant motion degradation even for repeated images. Cervical vertebral body stature is overall maintained. There is negligible anterior spondylolisthesis C4-5. There is no obvious expansile cervical cord signal abnormality, limited evaluation for subtle signal change due to motion degradation. Intervertebral disc spaces are overall maintained. There is no convincing marrow edema. C2-C3: Neural foramina and spinal canal are adequate. C3-C4: There is facet degenerative change bilaterally. There is minimal disc osteophyte complex, borderline narrowing of the central canal 10 mm. Neural foramina are adequate. C4-C5: Neural foramina are overall adequate. There is likely minimal disc osteophyte complex, borderline narrowing of the central canal about 10 mm. C5-C6: Central canal is likely borderline about 10 mm on developmental basis. Neural foramina are not significantly narrowed. C6-C7: Central canal is borderline about 10 to 11 mm in part on developmental basis. There is likely facet degenerative change. There may be minimal narrowing on the left neural foramen, right neural foramen not significantly narrowed. C7-T1: Spinal canal is adequate. There is facet degenerative change. Right neural foramen is likely adequate, likely [id number] narrowing of the left neural foramen. Impression: 1. There is significant motion degradation. There is no significant cervical spinal stenosis, multilevel borderline narrowing on developmental basis. There is likely [id number] narrowing of the left C7-T1 neural foramen in part from facet degenerative change, although poorly characterized due to motion. There is negligible anterior spondylolisthesis C4-5. Electronically signed by: Luis Fernando Schafer MD (04/30/2019 12:42 PM) [facility]-KCIC1
--- NOTE | 2019-04-30 14:01 | KCIC ---
MRI Thoracic Spine without contrast History: Chronic back pain, neck pain, pain into the hips and legs Technique: Multiplanar, multi sequential noncontrast MR imaging was performed of the thoracic spine. Comparison: None Findings: There is some motion. Thoracic cord caliber is within normal limits without defined or expansile signal change, limited evaluation for more subtle signal abnormality due to motion artifact. There is mild superior height loss of T11 anteriorly and mild generalized height loss of T8, T9, T10 likely on developmental basis, not associated with significant marrow edema. There is [id number] degenerative disc disease T8-T9 through T10-11 and to lesser degree at T7-8 and T11-12. There is multilevel buckling of the ligamentum flavum, greatest T5-T6, T8-9, T9-10, T10-11. There is also multilevel thoracic facet degenerative change which contributes to neural foramina compromise, moderate narrowing on the right at T9-T10 and T5-T6 and on the left at T5-T6. There is a lesser degree of other mild multilevel neural foramina compromise. There is negligible posterior disc osteophyte complex at T10-11, no significant focal posterior disc abnormality. There is somewhat diffuse mild narrowing of the thoracic spinal canal on a developmental basis. Small T2 hyperintense foci of the visualized right kidney are statistically more likely cysts. Impression: 1. There is somewhat diffuse mild narrowing of the thoracic spinal canal on a developmental basis, no significant focal posterior disc abnormality. There is negligible posterior disc osteophyte complex T10-11. There is degenerative disc disease of inferior thoracic levels. Facet degenerative change contributes to multilevel thoracic neural foramina compromise. Electronically signed by: Lius Fernando Schafer MD (04/30/2019 1:58 PM) [place] [id number]
--- NOTE | 2019-04-30 14:27 | KCIC ---
MRI Lumbar Spine without contrast History: Chronic back pain and neck pain, pain into the hips and legs Technique: Multiplanar, multi sequential noncontrast MR imaging was performed of the lumbar spine. Comparison: None Findings: There is some motion degradation Lumbar vertebral body stature is overall maintained. There is no significant marrow edema of the vertebral bodies. There is nonspecific edema of the posterior subcutaneous fat of the lower back. There is negligible anterior spondylolisthesis at L2-3 and L3-4. There is mild degenerative disc disease at L3-4, mild disc desiccation L2-3. L1-L2: There is mild buckling of the ligamentum flavum and facet degenerative change. Neural foramina and spinal canal are adequate. L2-L3: There is minimal buckling of the ligamentum flavum and facet degenerative change. There is negligible disc osteophyte complex. There is right posterior annular tear. Spinal canal is adequate. There is mild narrowing of the left neural foramen, right neural foramen adequate. L3-L4: There is minimal disc osteophyte complex. There is left posterior annular tear. Spinal canal is adequate. There is minimal facet degenerative change. Neural foramina are overall adequate. L4-L5: There is mild buckling of the ligamentum flavum and minimal facet degenerative change. Spinal canal is overall adequate. There is negligible disc osteophyte complex. There is very mild narrowing of the left neural foramen, right neural foramen not significantly narrowed. L5-S1: Spinal canal and the neural foramina are adequate. Impression: 1. There is no significant lumbar spinal stenosis or significant neural foramina compromise, very mild narrowing of the left L2-3 and L4-5 neural foramina. There is minimal degenerative disc disease at L3-4. There is negligible anterior spondylolisthesis at L2-3 and L3-4. Electronically signed by: Luis Fernando Schafer MD (04/30/2019 2:24 PM) [id number]
== END | disposition home or self-care (01) ==
LOC: KCIC MRI 11:08
PROVIDERS: ATTEND Family Medicine
DX: M47.816 Spondylosis without myelopathy or radiculopathy, lumbar region (principal); M47.812 Spondylosis without myelopathy or radiculopathy, cervical region; M48.04 Spinal stenosis, thoracic region; M48.061 Spinal stenosis, lumbar region without neurogenic claudication; M51.35 Other intervertebral disc degeneration, thoracolumbar region; M43.12 Spondylolisthesis, cervical region; M43.16 Spondylolisthesis, lumbar region; M25.78 Osteophyte, vertebrae
CPT/HCPCS: 72141; 72146; 72148

== ENCOUNTER 2019-05-09 23:28 | Emergency (ER) | payer MEDICARE ==
[~2019-05-09] VITALS: Ht 154.9 cm; Wt 136.4 kg
[2019-05-10 00:44] LABS: CLARITY,URINE CLEAR; COLOR,URINE ORANGE
[2019-05-10 00:51] LABS: BACTERIA,URINE 0 /HPF (0-FEW); RBC,URINE OCC /HPF (0-2); SQUAMOUS EPITHELIAL CELL,UR FEW /LPF; WBC,URINE OCC /HPF (0-4)
--- NOTE | 2019-05-10 00:54 | PHYS DOC ---
Past Medical History Past Medical History: Arthritis, Asthma, CHF, CVA, Fibromyalgia, GERD, High Cholesterol, Migraines, Other Additional Past Medical Histor: TACHYCARDIA, E COLI, HYDRONEPHROSIS, cell ulitis, INTERSTITIAL CYSTITIS Past Surgical History: Cholecystectomy, Other Additional Past Surgical Histo: LAP BAND 2004, OK EN Y 2013, BREAST REDUCT, R TOE ORTHO, GASTRIC BYPASS Smoking Status: Never Smoker Alcohol Use: None Drug Use: None Adult General Chief Complaint Chief Complaint: LOWER EXTREMITY SWELLING HPI HPI Patient is a 44 year old female with a history of multiple medical problems including CVA, CHF, high cholesterol, morbidly obesity, chronic UTIs, chronic lower extremity swelling with cellulitis, presenting to the ED today with complaints of chronic UTI and chronic bilateral lower extremity swelling. Patient reports taking 3 different types of antibiotics in the last 1 month, she is currently on Cipro. She recently took Macrobid as well. Denies any fever. Presents to the ED with multiple packed bags consistent with patient seeking admission which is her typical presentation. Review of Systems Review of Systems Constitutional: Denies fever or chills [] Eyes: Denies change in visual acuity, redness, or eye pain [] HENT: Denies nasal congestion or sore throat [] Respiratory: Denies cough or shortness of breath [] Cardiovascular: No additional information not addressed in HPI [] GI: Denies abdominal pain, nausea, vomiting, bloody stools or diarrhea [] : Reports chronic UTI, denies hematuria [] Musculoskeletal: Denies back pain or joint pain [] Integument: Chronic lower extremity cellulitis Neurologic: Denies headache, focal weakness or sensory changes [] All other systems were reviewed and found to be within normal limits, except as documented in this note. Allergies Allergies Allergies Coded Allergies Type Severity Reaction Last Updated Verified adhesive tape Allergy Intermediate SKIN SENSITIVITY 02/09/18 Yes aspartame Allergy Intermediate 02/09/18 Yes erythromycin base Allergy Intermediate 02/09/18 Yes jannie Allergy Intermediate Rash 02/09/18 Yes tetracycline Allergy Intermediate 02/09/18 Yes walnut Allergy Intermediate 02/09/18 Yes I S O L A T I O N *CONTACT* Allergy Unknown 02/09/18 Yes Physical Exam Physical Exam Constitutional: Well developed, well nourished, no acute distress, non-toxic appearance. [] HENT: Normocephalic, atraumatic, bilateral external ears normal, oropharynx moist, no oral exudates, nose normal. [] Eyes: PERRLA, EOMI, conjunctiva normal, no discharge. [] Neck: Normal range of motion, no tenderness, supple, no stridor. [] Cardiovascular:Heart rate regular rhythm, no murmur [] Lungs & Thorax: Bilateral breath sounds clear to auscultation [] Abdomen: Bowel sounds normal, soft, no tenderness, no masses, no pulsatile masses. [] Skin: Warm, dry, no erythema, no rash. [] Back: No tenderness, no CVA tenderness. [] Extremities: Obese patient. No tenderness, no cyanosis, no clubbing, ROM intact, +2 chronic lower extremity edema with chronic cellulitis. +2 pedal pulses. Neurologic: Alert and oriented X 3, normal motor function, normal sensory function, no focal deficits noted. [] Psychologic: Affect normal, judgement normal, mood normal. [] Current Patient Data Lab Values Laboratory Tests Test 05/10/19 00:30 Urine Collection Type Unknown Urine Color [place] Urine Clarity Clear Urine pH Urine Specific [place] <=1.005 Urine Protein mg/dL (NEG-TRACE) Urine Glucose (UA) mg/dL (NEG) Urine Ketones (Stick) mg/dL (NEG) Urine Blood (NEG) Urine Nitrite (NEG) Urine Bilirubin (NEG) Urine Urobilinogen Dipstick mg/dL (0.2 mg/dL) Urine Leukocyte Esterase (NEG) Urine RBC Occ /HPF (0-2) Urine WBC Occ /HPF (0-4) Urine Squamous Epithelial Cells Few /LPF Urine Bacteria 0 /HPF (0-FEW) EKG EKG [] Radiology/Procedures Radiology/Procedures [] Course & Med Decision Making Course & Med Decision Making Pertinent Labs and Imaging studies reviewed. (See chart for details) This is a 44-year-old female patient well-known to this ED presenting today with chronic bilateral lower extremity swelling with cellulitis as well as chronic UTI. Patient is well-known to this ED for the symptoms. She states she has been treated with 3 antibiotics in the last 1 month currently is on Cipro and just finished Macrobid. Off note she came to the ED with parked bags consistent with patient coming to be admitted. Urine analysis not able to be tested because of color. Patient reports taking Pyridium. Informed patient she needs to stop Pyridium for a day then contact the PCP and have them run a UA. She states she cannot stop the Pyridium. Inform patient to be discharged to home and she is welcome to follow-up with her own PCP, [facility] wound clinic or [facility] wound clinic. She is to follow-up with [facility] wound clinic. She is afebrile in the ED. Her cellulitis is chronic. Her UTIs are chronic. Patient requesting to be admitted. Informed patient there is nothing acute in her diagnosis to warrant staying in the hospital. Recommended she goes home and follows up with her PCP as well as a wound clinic. She states she will follow-up with [facility] wound clinic. Dragon Disclaimer Dragon Disclaimer This electronic medical record was generated, in whole or in part, using a voice recognition dictation system. Departure Departure Impression: Primary Impression: Chronic cellulitis Disposition: HOME, SELF-CARE Condition: STABLE Referrals: PURVI NETTLES MD (PCP) Follow-up in the course of this week with your primary care doctor or [facility] wound clinic. Phone number to [facility] wound clinic is [phone] Patient Instructions: Cellulitis, [id number] Additional Instructions: You were evaluated in the emergency room for chronic UTI and chronic cellulitis to bilateral lower extremities. As discussed consider following up with [facility] wound clinic or [facility] wound clinic. Please contact your own doctor and have them do a urine analysis to rule out any infection. NIKITA CHAVEZ APRN May 10, 2019 00:54
[2019-05-10 01:07] VITALS: BP 124/71
== END 2019-05-10 01:18 | disposition home or self-care (01) ==
LOC: ER 23:28
DX: L03.116 Cellulitis of left lower limb (principal); L03.115 Cellulitis of right lower limb; R60.0 Localized edema; M19.90 Unspecified osteoarthritis, unspecified site; J45.909 Unspecified asthma, uncomplicated; M79.7 Fibromyalgia; K21.9 Gastro-esophageal reflux disease without esophagitis; E78.00 Pure hypercholesterolemia, unspecified; G43.909 Migraine, unspecified, not intractable, without status migrainosus; I97.821 Postprocedural cerebrovascular infarction following other surgery; I50.9 Heart failure, unspecified; Z90.49 Acquired absence of other specified parts of digestive tract; Z98.890 Other specified postprocedural states; Z91.018 Allergy to other foods; Z88.1 Allergy status to other antibiotic agents; Z88.8 Allergy status to other drugs, medicaments and biological substances; Z91.09 Other allergy status, other than to drugs and biological substances
CPT/HCPCS: 81001; 99283

== ENCOUNTER 2019-07-29 14:41 | Emergency (ER) | payer MEDICARE ==
[~2019-07-29] VITALS: Ht 177.8 cm; Wt 140.9 kg
[~2019-07-29 14:41] MED LIST changes: -ERTA1VIA IJ; +ERTA1VIA16 IJ
--- NOTE | 2019-07-29 15:36 | PHYS DOC ---
Past Medical History Past Medical History: Arthritis, Asthma, CHF, CVA, Depression, Fibromyalgia, GERD, High Cholesterol, Migraines, Other Additional Past Medical Histor: TACHYCARDIA, E COLI, HYDRONEPHROSIS, cellulitis, INTERSTITIAL CYSTITIS Past Surgical History: Cholecystectomy, Other Additional Past Surgical Histo: LAP BAND 2004, OK EN Y 2013, BREAST REDUCT, R TOE ORTHO, GASTRIC BYPASS Smoking Status: Never Smoker Alcohol Use: None Drug Use: None General Adult EDM: Chief Complaint: TOE PROBLEM HPI: HPI: Patient is a 44 year old female who presents with tripped over her oxygen tubing and there was a box on the floor and her fourth and fifth left toes were split apart and the box was in between. Patient has a 1 cm laceration to the posterior fourth toe right over the PIP joint. Bleeding is controlled. There is bruising to the fourth and fifth toes. Patient rates her pain 10 out of 10. Patient takes morphine 30 mg of which she took this morning at 0900. She also takes (2) 10/325 Percocets every 4 hours. Review of Systems: Review of Systems: Musculoskeletal: Denies back pain or joint pain. Left foot pain [] Integument: Denies rash. Laceration[] Heart Score: Risk Factors: Risk Factors: DM, Current or recent (<one month) smoker, HTN, HLP, family history of CAD, obesity. Risk Scores: Score 0 - 3: 2.5% MACE over next 6 weeks - Discharge Home Score 4 - 6: 20.3% MACE over next 6 weeks - Admit for Clinical Observation Score 7 - 10: 72.7% MACE over next 6 weeks - Early Invasive Strategies Allergies: Allergies: Allergies Coded Allergies Type Severity Reaction Last Updated Verified adhesive tape Allergy Intermediate SKIN SENSITIVITY 02/09/18 Yes aspartame Allergy Intermediate 02/09/18 Yes erythromycin base Allergy Intermediate 02/09/18 Yes jannie Allergy Intermediate Rash 02/09/18 Yes tetracycline Allergy Intermediate 02/09/18 Yes walnut Allergy Intermediate 02/09/18 Yes I S O L A T I O N *CONTACT* Allergy Unknown 02/09/18 Yes Physical Exam: PE: Constitutional: Well developed, well nourished, no acute distress, non-toxic appearance. [] HENT: Normocephalic, atraumatic, bilateral external ears normal, oropharynx moist, no oral exudates, nose normal. [] Eyes: PERRLA, EOMI, conjunctiva normal, no discharge. [] Neck: Normal range of motion, no tenderness, supple, no stridor. [] Cardiovascular:Heart rate regular rhythm, no murmur [] Lungs & Thorax: Bilateral breath sounds clear to auscultation [] Abdomen: Bowel sounds normal, soft, no tenderness, no masses, no pulsatile masses. [] Skin: Warm, dry, no erythema, no rash. [] Back: No tenderness, no CVA tenderness. [] Extremities: No tenderness, no cyanosis, no clubbing, ROM intact, no edema. [] Neurologic: Alert and oriented X 3, normal motor function, normal sensory function, no focal deficits noted. [] Psychologic: Affect normal, judgement normal, mood normal. [] Current Patient Data: Vital Signs: Vital Signs Date Time Temp Pulse Resp B/P (MAP) Pulse Ox O2 Delivery O2 Flow Rate FiO2 07/29/19 14:45 98.4 100 22 122/64 (83 93 Nasal Cannula 2.5 98.4 EKG: EKG: [] Radiology/Procedures: Radiology/Procedures: [] Impression: [facility] [address] [place], [place] [id number] IMAGING REPORT Signed PATIENT: KOFI DRISCOLL ACCOUNT: [id number] : 1975 LOCATION: ER AGE: 44 SEX: F EXAM STATUS: REG ER ORD. PHYSICIAN: ROMY GUARDADO APRN REASON: pip joint laceration to back of 4th foot. PROCEDURE: FOOT LEFT 3V FOOT LEFT 3V DATE: 07/29/2019 3:02 PM INDICATION: Reason: pip joint laceration to back of 4th foot. / Spl. Instructions: / History: COMPARISON: None. FINDINGS: Bones: There is no evidence of acute fracture or dislocation. Joints: The joint spaces are normal. Miscellaneous: No radiopaque foreign body. IMPRESSION: No acute fracture. No radiopaque foreign body. Electronically signed by: Kaushik Alvarado MD (07/29/2019 3:40 PM) [id number] DICTATED and SIGNED BY: KAUSHIK ALVARADO MD DATE: 07/29/19 1540 Course & Med Decision Making: Course & Med Decision Making Pertinent Labs and Imaging studies reviewed. (See chart for details) Patient states she cannot wiggle her toes on that left foot due to pain. She denies any numbness or tingling. Pedal pulses strong present. Cap refills less than 3 seconds. Skin pink warm and dry. No deformity noted. No foreign body seen. Patient is currently on Antibiotics for cellulitis of which she can not remember what they are called. Laceration repair Location: Posterior left fourth toe at hip joint 1 cm Local anesthesia: 1% Lidocaine Interrupted sutures/Internal sutures: 6 sutures Nerve/ligament/muscle damage: none Cleaning and irrigation: saline and chlorhexidine The appropriate timeout was taken. The area was prepped and draped in the usual sterile fashion. The wound was copiously irrigated with normal saline and chlorhexidine. Patient tolerated well without complication. Dressing was applied to the area follow-up education is given to observe for signs and symptoms of infection, bleeding and to follow-up promptly if these occur. Patient can return in 48 hours for a wound recheck. Sutures to be removed in 7 to 10 days. [] Dragon Disclaimer: Dragon Disclaimer: This electronic medical record was generated, in whole or in part, using a voice recognition dictation system. Departure Departure Impression: Primary Impression: Toe pain Qualified Codes: M79.675 - Pain in left toe(s) Additional Impression: Laceration Disposition: 01 HOME, SELF-CARE Condition: STABLE Referrals: PURVI NETTLES MD (PCP) Patient Instructions: Laceration Care, Adult Additional Instructions: Follow up with primary care provider if needed. Keep clean and covered. Sutures need removed in 10 days. ROMY GUARDADO CHANGE NUMBER OPERATOR July 29, 2019 15:36
--- NOTE | 2019-07-29 15:42 | RAD ---
FOOT LEFT 3V DATE: 07/29/2019 3:02 PM INDICATION: Reason: pip joint laceration to back of 4th foot. / Spl. Instructions: / History: COMPARISON: None. FINDINGS: Bones: There is no evidence of acute fracture or dislocation. Joints: The joint spaces are normal. Miscellaneous: No radiopaque foreign body. IMPRESSION: No acute fracture. No radiopaque foreign body. Electronically signed by: Luis Fernando Alvarado MD (07/29/2019 3:40 PM) [id number]
[2019-07-29] MEDS ORDERED: LIDOCAINE 1% Multi-Dose 20 ML VIAL. INJ ONE (16:45)
[2019-07-29 17:56] VITALS: BP 129/85
== END 2019-07-29 18:25 | disposition home or self-care (01) ==
LOC: ER 14:41
DX: S91.115A Laceration without foreign body of left lesser toe(s) without damage to nail, initial encounter (principal); M79.675 Pain in left toe(s); M19.90 Unspecified osteoarthritis, unspecified site; J45.909 Unspecified asthma, uncomplicated; F32.9 Major depressive disorder, single episode, unspecified; I50.9 Heart failure, unspecified; M79.7 Fibromyalgia; K21.9 Gastro-esophageal reflux disease without esophagitis; E78.00 Pure hypercholesterolemia, unspecified; G43.909 Migraine, unspecified, not intractable, without status migrainosus; Z90.49 Acquired absence of other specified parts of digestive tract; Z98.890 Other specified postprocedural states; Z88.1 Allergy status to other antibiotic agents; Z91.018 Allergy to other foods; Z88.8 Allergy status to other drugs, medicaments and biological substances; Z88.6 Allergy status to analgesic agent; W01.0XXA Fall on same level from slipping, tripping and stumbling without subsequent striking against object, initial encounter; Y93.89 Activity, other specified; Y92.89 Other specified places as the place of occurrence of the external cause; Y99.8 Other external cause status
CPT/HCPCS: 12001; 73630; 99285; J3490

== ENCOUNTER → 2019-12-14 | Outpatient (CLI) | payer MEDICARE ==
[~2019-12-14] MED LIST changes: -CETI10TA24 PO; +CETI10TA74 PO; +MULT-445 PO; -MULT1TAB52 PO; -OXYC-411 PO; +OXYC1TAB20 PO
--- NOTE | 2019-12-15 20:05 | SLEEP ---
DATE OF STUDY: 12/14/2019 SLEEP STUDY ATTENDING PHYSICIAN: Zak Lee MD REFERRING PHYSICIAN: Claire Richardson MD The patient is a 44-year-old who weighs 320 pounds with a BMI of 46. The patient's Tulia score was 5. The patient underwent diagnostic sleep study performed at [facility]. The patient has been on morphine and Percocet daily. The patient has history of sleep apnea diagnosed in 2018, but did not wear CPAP. During the night study, the patient spent 433 minutes in bed and slept for 392 minutes with normal sleep efficiency of 90%. Sleep latency was 7 minutes with absent REM sleep. Overall, sleep architecture showed normal stage 1 sleep, normal stage 2 sleep, increased slow wave sleep, which was 62% of the total sleep time and absent REM sleep. During the night study, the patient had 2 obstructive apneas, 6 mixed apneas, 5 central apneas and 52 hypopneas. The patient's AHI was 10 per hour with a supine AHI of 27 per hour. REM sleep was not observed. Nocturnal oximetry study revealed a mean oxygen saturation of 84% with lowest of 69%. A 23% of time oxygen saturation remained between 80% and 89% and 76% of time between 70% and 79%. EKG monitoring revealed an average heart rate of 104 beats per minute, no sustained arrhythmias observed. PLMS were not observed. Due to low AHI, the patient did not meet the split night criteria for CPAP initiation. IMPRESSION: 1. Mild obstructive sleep apnea with moderate increase during supine sleep. Absence of REM sleep can underestimate the severity of sleep apnea. The patient's AHI total was 10 per hour with a supine AHI of 27 per hour. 2. Sustained pattern of nocturnal hypoxia, suggestive of hypoventilation. The patient is chronically on morphine sulfate as well as Percocet p.r.n. 3. No clinically significant periodic limb movements. RECOMMENDATIONS: 1. The patient would benefit from treatment of sleep apnea with CPAP. Alternate treatment option would include use of oral appliances recommended by the dentist. 2. Once the patient is optimally treated, then follow up in 4-6 weeks to assess compliance with treatment and to document clinical improvement. 3. Weight loss is strongly advised. 4. Avoid [employer] depressants. 5. Cautioned regarding driving until symptoms of sleep apnea resolve with above recommendation. 6. Minimize the use of narcotics if clinically possible. ANDRE TAM MD DR: STEPHANIE/kranthi JOB#: [id number] / [id number] ZAK Keane MD, SABATO MD
== END ==
LOC: RT 19:06
PROVIDERS: ATTEND Internal Medicine Pulmonary Disease
DX: G47.33 Obstructive sleep apnea (adult) (pediatric) (principal)
CPT/HCPCS: 95810

== ENCOUNTER → 2020-02-08 | Outpatient (CLI) | payer MEDICARE ==
[~2020-02-08] MED LIST changes: -RISP2TAB3 PO; +RISP2TAB78 PO
--- NOTE | 2020-02-09 12:05 | SLEEP ---
DATE OF STUDY: 02/08/2020 SLEEP STUDY ATTENDING PHYSICIAN: Claire Richardson MD. The patient is a 44-year-old who weighs 320 pounds with a BMI of 46. The patient's Winlock score was 12. The patient had a previous sleep study and was diagnosed with sleep apnea. The patient's total AHI was 10 per hour with a supine AHI of 27 per hour. During the night of study, the patient spent 462 minutes in bed and slept for 426 minutes with a sleep efficiency of 92%. Sleep latency was 4 minutes with absent REM sleep. Sleep architecture showed normal stage 1 and stage 2 sleep, increased slow wave sleep and absent REM sleep. The patient was started on CPAP at 5 cm water and titrated up to 7 cm water. At the final pressure, the patient slept for 204 minutes. The patient had supine sleep, but no REM sleep. The patient's AHI was reduced to 1 per hour and oxygen saturations remained in the mid to high 80s with the lowest of 78%. EKG monitoring revealed no sustained arrhythmias. Average heart rate 90 beats per minute. No PLMs observed. IMPRESSION: 1. Sleep apnea diagnosed by previous sleep study. 2. Nocturnal hypoxia secondary to sleep apnea and suspected hypoventilation. Not completely resolved with final CPAP pressure. 3. No clinically significant periodic limb movements. RECOMMENDATIONS: 1. CPAP at 7 cm water along with 1 liter of oxygen should be used on a nightly basis. 2. Follow up in 4-6 weeks to assess compliance with CPAP and to document clinical improvement. 3. Weight loss is strongly advised. 4. Avoid [employer] depressants. 5. Cautioned regarding driving until symptoms of sleep apnea resolve with the use of CPAP. ANDRE TAM MD DR: STEPHANIE/kranthi JOB#: [id number] / [id number] VIKTORIA Robertson SABATO MD
== END ==
LOC: RT 19:08
PROVIDERS: ATTEND Internal Medicine Pulmonary Disease
DX: G47.33 Obstructive sleep apnea (adult) (pediatric) (principal)
CPT/HCPCS: 95811

== ENCOUNTER → 2021-02-26 | Outpatient (CLI) | payer MEDICARE ==
[~2021-02-26] MED LIST changes: +CYCL10TA19 PO; -CYCL10TA2 PO; -LACT1CAP29 PO; +LACT1CAP37 PO; +LANS15CA73 PO; -LANS15CA78 PO; +POTA-121 PO; +TIZA-75 PO; -TIZA4TAB2 PO
--- NOTE | 2021-02-27 10:31 | SLEEP ---
DATE OF STUDY: 02/26/2021 SLEEP STUDY REFERRING PHYSICIAN: EMELY Mancia and Tricia Garcia MD The patient is 46 years old who weighs 292 pounds with a BMI of 42. The patient's Scarville score was 18. The patient underwent split night study performed at [facility]. During the night study, the patient spent 429 minutes in bed and slept for 418 minutes with a sleep efficiency of 97%. Sleep latency was 4 minutes with a REM latency of 218 minutes. Sleep architecture showed normal stage 1 sleep, increased stage 2 sleep, normal slow wave and reduced REM sleep. During the initial diagnostic portion of the study, the patient slept for 145 minutes. During that time, the patient had 1 obstructive apnea, no mixed apnea, 14 central apneas and 35 hypopneas. The patient's AHI was 21 per hour. Supine AHI was the same. REM sleep was not seen. PLMs were not seen. Nocturnal oximetry study revealed an average oxygen saturation of 83% with a lowest of 68%. 32% of time oxygen saturation remained between 80% and 89% and 67% of time between 70% and 79%. EKG monitoring revealed an average heart rate of 102 beats per minute. No sustained arrhythmias observed. The patient was started on CPAP at a pressure of 5 cm water and titrated up to 7 cm water. At a pressure of 7 cm water, the patient slept for 147 minutes. The patient had a lateral REM sleep. The patient's AHI was reduced to 5 per hour and was due to few central apneas. Oxygen saturations remained in the mid to high 80s with a lowest of 79%. The patient would need supplemental oxygen as well. IMPRESSION: 1. Moderate obstructive sleep apnea at an AHI of 21 per hour. Absence of REM sleep during the diagnostic portion can underestimate the severity of sleep apnea. 2. Nocturnal hypoxia, suspect secondary to combination of obstructive sleep apnea and obesity hypoventilation syndrome. Not resolve on final CPAP pressure. 3. No significant periodic limb movements. RECOMMENDATIONS: 1. CPAP at 7 cm water along with 2 liters of supplemental oxygen should be used on a nightly basis. The patient used nasal pillows, small size with chin strap. 2. Follow up in 4-6 weeks to assess compliance and to document clinical improvement. 3. Weight loss is strongly advised. 4. Avoid [employer] depressants. 5. Cautioned regarding driving until symptoms of sleep apnea resolve with the use of CPAP. WILBERT DR: Zhanna TID: [id number] CC: TRICIA GARCIA MD, VIKTORIA ALBERT, PA
== END ==
LOC: RT 19:32
PROVIDERS: ATTEND Internal Medicine Pulmonary Disease
DX: G47.33 Obstructive sleep apnea (adult) (pediatric) (principal)
CPT/HCPCS: 95810